=== PATIENT | female | born 1940 | race Caucasian/White ===

== ENCOUNTER → 2017-09-10 10:43 | Outpatient (CLI) | payer MEDICARE, OTHER, SELFPAY ==
--- NOTE | 2017-09-10 10:49 | DI.RAD.S_ITS ---
PROCEDURE: XR WRIST LT MIN 3V INDICATIONS: 76 year-old female with left wrist pain after fall on Friday. TECHNIQUE: 3 views of the wrist were acquired. COMPARISON: None. FINDINGS: Bones: On the oblique view only, there is linear lucency involving the scaphoid waist. There is mild scaphotrapezial joint degeneration. No suspicious bony lesions. Scaphoid view: Not requested. Soft tissues: There is mild radiocarpal compartment chondrocalcinosis. IMPRESSION: 1. Possible incomplete scaphoid waist fracture. Consider further evaluation with short term followup left wrist radiographs, versus noncontrast left wrist MRI. 2. Left wrist CPPD deposition disease. Dictated by: Harpreet Mason M.D. on 09/10/2017 at 11:48 Approved by: Harpreet Mason M.D. on 09/10/2017 at 11:51
--- NOTE | 2017-09-10 10:49 | DI.RAD.S_ITS ---
PROCEDURE: XR LUMBAR SPINE MIN 4V INDICATIONS: 76 year-old female with chronic low back pain with lower extremity radiculopathy. TECHNIQUE: 5 views of the lumbar spine were acquired. COMPARISON: None. FINDINGS: Bones: 5 [id number] vertebrae are present. There is grade one L4-L5 spondylolisthesis, secondary to facet joint degeneration. There is mild L2-L3 retrolisthesis from disc degeneration. There is L2-L3 and L5-S1 degenerative disc narrowing. No vertebral body compression fractures. No suspicious bony lesions. Soft tissues: Overlying bowel gas pattern is normal. No suspicious soft tissue calcifications. Oblique images: No pars defects. IMPRESSION: 1. 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 2. Mild L2-L3 retrolisthesis from disc degeneration. 3. Grade one L4-L5 spondylolisthesis from facet joint degeneration. Dictated by: Harpreet Mason M.D. on 09/10/2017 at 11:51 Approved by: Harpreet Mason M.D. on 09/10/2017 at 11:54
== END ==
PROVIDERS: PCP Internal Medicine; Referring Provider Physician Assistant; Visit Provider Physical Medicine & Rehabilitation
DX: M51.16 Intervertebral disc disorders with radiculopathy, lumbar region (principal); M43.16 Spondylolisthesis, lumbar region; M11.232 Other chondrocalcinosis, left wrist; M25.532 Pain in left wrist; M54.5 Low back pain; G89.29 Other chronic pain; G62.9 Polyneuropathy, unspecified
CPT/HCPCS: 72110; 73110

== ENCOUNTER 2017-09-14 22:11 | Emergency (ER) | payer MEDICARE, OTHER, SELFPAY ==
[2017-09-14 22:29] VITALS: BP 145/91; PULSE 72; RESP 20; TEMP 36.9; O2SAT 98
--- NOTE | 2017-09-14 23:16 | ED_ITS ---
HPI - Back Pain/Injury General Chief Complaint: Back Pain/Injury Stated Complaint: back spasms,low back,unable to get up and down Time Seen by Provider: 09/14/17 22:26 History of Present Illness HPI Narrative: HPI 76-year-old female with a 3-4 months of intermittent bilateral paraspinal lumbar pain presents for evaluation of largely resolved right sided paraspinal pain is radiating towards her groin and right leg and interfering with sleep. Patient reports that she had an exacerbation pain this evening was concerned that she would not be able to sleep presented for further care. Prior to presentation ED her pain largely resolved. Patient denies a history of recent trauma, fevers, chills, unexpected weight loss, decreased perineal sensation when toileting, difficulty urinating or incontinence, morning stiffness, IV drug use, alcoholism, recent invasive medical procedures, presyncope, abdominal pain, or dysuria. Anticoagulation: denies anticoagulation and Plavix. M/S/F/SocHx notable for: please see HPI; remainder reviewed with patient and in chart. ROS: Negative constitutional, eye, cardiovascular, pulmonary, GI, , MSK, skin , neurologic, psychiatric, endocrine unless noted in the HPI. Exam Gen: Pleasant, non-toxic appearing, standing and walking with at most minimal discernible discomfort. HEENT: NC, AT, PEERL, EOMI. Resp: CTAB Card: RRR GI: ND, non-tender to palpation, no palpable midline masses, no palpable midline pulsatility. : No CVA tenderness to percussion bilaterally. MSK: No visible deformities, strength and tone WNL. No lower thoracic or lumbar spinal TTP, step offs or deformities. paraspinal TTP. Skin: Normal color with no visible lesions. Neuro: AO x 3, no facial asymmetry, vision and hearing WNL. Straight leg raise test - negative right, negative left. BLE distal sensation intact, 5/5 dorsiflexion / plantarflexion bilaterally. Gait: mildly antalgic, normal, narrow based gait, able to walk unassisted and stand on heels and toes with full apparent strength. Psych: Mood and affect appropriate. MDM Previous chart, nursing note, and vitals reviewed. A: 76-year-old female with a 3-4 months of intermittent bilateral paraspinal lumbar pain presents for evaluation of largely resolved right sided paraspinal pain is radiating towards her groin and right leg and interfering with sleep. DDx: muscle strain, muscle spasm, sciatica, lumbar radiculopathy, cauda equina syndrome, spinal cord abscess, vertebral osteomyelitis, vertebral diskitis, fracture, seronegative spondyloarthropathy, abdominal aortic aneurysm, abdominal aortic dissection, spontaneous hematoma, malignant spinal cord compression. Evaluation: * Cauda equina - consider unlikely given normal perineal sensation, lack of incontinence or urinary retention. * Infection - abscess, vertebral osteomyelitis, and diskitis are unlikely as the patient is immunocompetent and is with an absence of infectious signs and risk factors on ROS, and a lack of point tenderness. * Fracture - doubt given the absence of spinal TTP and lack of prior trauma * Seronegative spondyloarthropathy - unlikely, no further evaluation currently indicated given the absence of morning stiffness and negative RA, psoriatic arthritis, and autoimmune disease history. * AAA or Dissection - given the absence of tobacco use, the lack of a palpable pulsatile abdominal mass, abdominal pain, presyncope, an abdominal aortic aneurysm as well as dissection is considered unlikely and further investigation is not currently indicated. * Spinal Metastases - given the unremarkable ROS, absence of point spinal tenderness on exam and the lack of discernible neurological deficit, no further testing regarding this etiology is currently indicated. * Renal - history possibly consistent with a recently passed kidney stone, additional evaluation including urinalysis discuss with patient, patient declined further evaluation. No evidence on history or exam of UTI pyelonephritis. * Consider muscle spasm versus lumbar radiculopathy to be the most likely cause of patient's symptoms. Counseled patient regarding natural course of musculoskeletal back pain, given return to care instructions, and recommendation for primary care physician follow up. Discharged with instructions to use OTC medications for pain control. Patient was notified of their elevated blood pressure and recommended to follow up with their primary care physician. As the patient is without evidence of acute end organ dysfunction no further emergent evaluation is indicated as per the 2013 [facility] clinical policy. Impression: Back Pain. (please reference below for remainder of encounter information) Related Data Home Medications Medication Instructions Recorded Confirmed [MAXALT] #0 02/01/06 09/10/17 butalbital 50 mg-acetaminophen 325 1 cap PO ONCE 08/29/17 09/10/17 mg-caffeine 40 mg-codeine 30 mg cap levothyroxine 150 mcg capsule 150 mcg PO DAILY 08/29/17 09/10/17 calcium citrate PO 09/10/17 09/10/17 cholecalciferol (vitamin D3) PO 09/10/17 09/10/17 Allergies Allergy/AdvReac Type Severity Reaction Status Date / Time No Known Allergies Allergy Uncoded 07/09/17 12:02 [facility] Social History Smoking Status: Never smoker Exam Initial Vital Signs Initial Vital Signs: Vital Signs Temperature 98.4 F 09/14/17 22:29 Pulse Rate 72 09/14/17 22:29 Respiratory Rate 20 09/14/17 22:29 Blood Pressure 145/91 H 09/14/17 22:29 Pulse Oximetry 98 09/14/17 22:29 Course Vital Signs - 8 hr 09/14/17 22:29 Temperature 98.4 F Pulse Rate 72 Respiratory Rate 20 Blood Pressure 145/91 H Pulse Oximetry 98 Discharge Plan Departure Prescriptions: No Action calcium citrate PO RF: 0 cholecalciferol (vitamin D3) PO RF: 0 [MAXALT] Qty: 0 RF: 0 levothyroxine 150 mcg capsule 150 mcg PO DAILY RF: 0 [id number] [id number] mg capsule 1 cap PO ONCE RF: 0
== END 2017-09-14 23:25 | disposition home or self-care (01) ==
PROVIDERS: Emergency Provider Emergency Medicine; PCP Internal Medicine
DX: M54.9 Dorsalgia, unspecified (principal)
CPT/HCPCS: 99282

== ENCOUNTER → 2017-09-25 08:48 | Outpatient (CLI) | payer MEDICARE, OTHER, SELFPAY ==
--- NOTE | 2017-09-25 08:51 | DI.MRI.S_ITS ---
PROCEDURE: MR LUMBAR SPINE WO CON INDICATIONS: Multilevel Spinal Stenosis TECHNIQUE: Noncontrast sagittal T1 spin echo and T2 fast echo, sagittal STIR, axial T1 and T2 fast spin echo through the lumbar spine. In cases with scoliosis, additional coronal T2 fast spin echo may be performed. COMPARISON: None. FINDINGS: Image quality: Excellent. Alignment and Curvature: Grade 1 retrolisthesis of L2 on L3 and grade 1 anterolisthesis of L4 on L5 Bone Marrow: Marrow is of normal overall signal. No acute vertebral body compression fractures. There is endplate degenerative spurring, scattered chronic appearing small Schmorl's nodes and endplate degenerative signal changes Spinal Cord: Conus medullaris terminates at the L2 level. Visualized cord demonstrates normal signal and size. Paraspinous Soft Tissues: No paravertebral masses. Posterior disc bulges at T11-T12 and T12-L1 with mild canal narrowing L1-L2: Normal appearance. L2-L3: Posterior annular fissure with broad -based posterior disc bulge and bilateral facet disease. Mild canal narrowing. Mild left and right foraminal stenoses L3-L4: Broad-based posterior disc bulge and facet arthropathy with mild canal narrowing. No definite foraminal stenosis L4-L5: Broad-based posterior disc bulge and bilateral facet arthropathy. Mild canal narrowing. No left and mild right foraminal narrowing L5-S1: Bilateral facet disease. No definite canal stenosis. Severe left and mild right foraminal stenoses IMPRESSION: Grade 1 anterolisthesis of L4-L5. Grade 1 retrolisthesis of L2 on L3. No high-grade canal stenosis. Severe left L5-S1 foraminal narrowing. Dictated by: Chepe Dewey M.D. on 09/25/2017 at 10:05 Approved by: Chepe Dewey M.D. on 09/25/2017 at 10:11
== END ==
PROVIDERS: PCP Internal Medicine; Visit Provider Personal Emergency Response Attendant
DX: M48.061 Spinal stenosis, lumbar region without neurogenic claudication (principal)
CPT/HCPCS: 72148

== ENCOUNTER → 2017-11-07 14:30 | Outpatient (CLI) | payer MEDICARE, OTHER, SELFPAY | PROVIDERS: Family Provider Physical Medicine & Rehabilitation; PCP Internal Medicine; Visit Provider Internal Medicine | DX: M81.0 Age-related osteoporosis without current pathological fracture (principal); Z78.0 Asymptomatic menopausal state; E07.9 Disorder of thyroid, unspecified; Z90.722 Acquired absence of ovaries, bilateral; M54.42 Lumbago with sciatica, left side; M54.41 Lumbago with sciatica, right side; G89.29 Other chronic pain; M43.16 Spondylolisthesis, lumbar region; M47.27 Other spondylosis with radiculopathy, lumbosacral region | CPT/HCPCS: 77080; 99214 ==

== ENCOUNTER 2017-12-18 09:45 | Outpatient (RCR) | payer MEDICARE, OTHER, SELFPAY ==
--- NOTE | 2017-11-04 13:00 | PT.OTN ---
Current Diagnoses Polyneuropathy, unspecified (11/04/17) Other chronic pain (11/04/17) Low back pain (11/04/17) Dorsalgia, unspecified (11/04/17) Physical Therapy Treatment Note PT-OP-A Visit Information Start: 11/04/17 08:37 Freq: Status: Active Protocol: Document 11/04/17 09:45 AMB (Rec: 11/05/17 09:18 AMB [email or web address]) Out-Patient Physical Therapy Visit Information Visit Information Visit Type Initial Evaluation Visit Start Time 09:45 Visit Stop Time 10:30 Total Visit Minutes 45 Visit Number 1 Evaluation Information Evaluation Date 11/04/17 PT-OP-B Current Condition Start: 11/04/17 08:37 Freq: Status: Active Protocol: Document 11/04/17 09:45 AMB (Rec: 11/04/17 10:08 AMB [id number]) Current Condition History of Current Condition Onset Date 3 months ago, insidious onset Current Complaints Back pain that comes and goes History of Current Condition Episodic back pain. Getting up in the morning takes about 30 minutes before she feels better (stiffnes). 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 Fell the first of August and broke left scaphoid, still in cast till mid Nov. 2-3 severe back pain episodes that last a week in the last 3 months. Denies radiating leg pain. Uses the stationary bike at [facility] 3x/week. Does walk in the neighborhood. Prior Treatments and Tests MRI 09/25/17: Grade 1 anterolisthesis L4-5. Grade 1 retrolisthesis L2-L3. Left L5-S1 foraminal narrowing. Treatment Goals Patient/Caregiver Goals Learn how to manage/ prevent back pain Prior Functional Status Baseline Function- ADL's Independent Baseline Function- Mobility Independent Current Functional Impairments (Reported) Functional Limitations- ADL's During a back pain episode: walking, extended sitting, sleeping and lifting are all limited. Personal Factors Other Personal Factors That May Effect Current scaphoid (L) fracture Therapy/Recovery in a cast. PT-OP-C Subjective Start: 11/04/17 08:37 Freq: Status: Active Protocol: Document 11/04/17 09:45 AMB (Rec: 11/05/17 09:18 AMB [email or web address]) Patient Questionnaires Oswestry Low Back Index Oswestry Score 44 Oswestry Impairment 40 to 59% Impaired (Score 40- 59) OP-PT Pain Assessment Location Lower Back Intensity 2 Scale Used Numeric (1 - 10) Comments Pain Comments currently pain is better, but has recently been severe PT-OP-J Posture/Palpation/Skin Start: 11/04/17 08:37 Freq: Status: Active Protocol: Document 11/04/17 09:45 AMB (Rec: 11/05/17 09:40 AMB [email or web address]) Posture Evaluation Comments Posture Comments The patient stands with flat lumbar spine, increased thoracic kyphosis with left shoulder high in standing. Palpation Assessment Location One Palpation Location Low back Palpation Details Stiffness with PAs in prone throughout lumbar spine and sacrum, pt denies pain with palpation, altough she does have tightness along paraspinals. PT-OP-K Range of Motion Start: 11/04/17 08:37 Freq: Status: Active Protocol: Document 11/04/17 09:45 AMB (Rec: 11/05/17 09:40 AMB [email or web address]) Lumbar Spine Range of Motion Lumbar Spine Active Percentage Testing Position standing Flexion 75 Extension 75 Lateral Flexion Left 50 Lateral Flexion Right 75 Comments discomfort with sidebending left on the right side PT-OP-L Special Tests Start: 11/04/17 08:37 Freq: Status: Active Protocol: Document 11/04/17 09:45 AMB (Rec: 11/05/17 09:43 AMB [email or web address]) Special Tests Lumbar Spine Special Tests Straight Leg Raise Test Results negative PT-OP-M Strength Start: 11/04/17 08:37 Freq: Status: Active Protocol: Document 11/04/17 09:45 AMB (Rec: 11/05/17 09:40 AMB [email or web address]) Hip Strength Hip Manual Muscle Testing Right Flexion (L2) 4+ Good+ Extension (S1) 4+ Good+ Abduction 4 Good Left Flexion (L2) 4+ Good+ Extension (S1) 4+ Good+ Abduction 4 Good Knee Strength Knee Manual Muscle Testing Right Flexion (S2) 4+ Good+ Extension (L3) 4+ Good+ Left Flexion (S2) 4 Good Extension (L3) 4 Good PT-OP-Q Treatments Start: 11/04/17 08:37 Freq: Status: Active Protocol: Document 11/04/17 09:45 AMB (Rec: 11/05/17 09:22 AMB [email or web address]) Therapeutic Exercises Supine Exercises 3 Supine Exercise Name single knee to chest Reps/Minutes 30x2 2 Supine Exercise Name SLR with TrA stab Reps/Minutes 2x10 1 Supine Exercise Name trunk rotation Reps/Minutes 2x10 PT-OP-T Assessment and Plan Start: 11/04/17 08:37 Freq: Status: Active Protocol: Document 11/04/17 09:45 AMB (Rec: 11/05/17 09:45 AMB [email or web address]) Physical Therapy Assessment Rehab Potential Rehabilitation Potential Good Evaluation Complexity Number of Personal Factors/Comorbidities 1-2 Number of Body Systems Impaired 4 or More Clinical Presentation at Evaluation Evolving Impairments Impairments Pain Posture ROM Strength Goals Three Impairment Self care Short Term Goal (STG) The patient will be independent with self pain management techniques to decrease the incidence of her back pain episodes to less than 1x/month. STG Duration 4 weeks Two Impairment Strength Short Term Goal (STG) The patient will be independent with a core and hip strengthening home exercise program. STG Duration 4 weeks Long-Term Goal (LTG) The patient will lift 10# from the floor to waist height without an increase in pain and with good body mechanics. LTG Duration 8 weeks One Impairment Activity tolerance Short Term Goal (STG) The patient will move from supine to sitting on the edge of her bed with good body mechanics without an increase in back pain. STG Duration 4 weeks Practice Business Asst Goal (LTG) The patient will move from sit to stand with good body mechanics without an increase in baseline pain. LTG Duration 8 weeks Physical Therapy Plan Frequency and Duration Frequency of Treatment 2x/Week Duration of Treatment 8 weeks Plan of Care Start Date 11/04/17 Plan of Care End Date 12/30/17 Therapeutic Interventions Therapeutic Interventions Aquatic Therapy Balance Training Gait Training Manual Therapy Neuromuscular Re-education Patient/Caregiver Education Therapeutic Activities Therapeutic Exercises Modalities Cold Pack/Ice Massage Electric Stimulation Hot Packs Ultrasound Next Visit Focus/Plan Next Note Type Treatment Note Next Visit Plan Progress HEP, standing core and balance
--- NOTE | 2017-11-04 13:09 | PT.OIE ---
Current Diagnoses Polyneuropathy, unspecified (11/04/17) Other chronic pain (11/04/17) Low back pain (11/04/17) Dorsalgia, unspecified (11/04/17) Provider Visit Care Team Role Provider Type Karthikeyan Yanez MD Family Provider Physician Primary Care Provider Specialty: Internal Medicine Address: [address] [place], [place] [id number] Email: Wesley Hensley DO Attending Provider Physician Specialty: Physiatry Pain Management Address: [address] [place] [address], [id number] Email: Physical Therapy Initial Evaluation PT-OP-A Visit Information Start: 11/04/17 08:37 Freq: Status: Active Protocol: Document 11/04/17 09:45 AMB (Rec: 11/05/17 09:18 AMB [email or web address]) Out-Patient Physical Therapy Visit Information Visit Information Visit Type Initial Evaluation Visit Start Time 09:45 Visit Stop Time 10:30 Total Visit Minutes 45 Visit Number 1 Evaluation Information Evaluation Date 11/04/17 PT-OP-B Current Condition Start: 11/04/17 08:37 Freq: Status: Active Protocol: Document 11/04/17 09:45 AMB (Rec: 11/04/17 10:08 AMB [id number]) Current Condition History of Current Condition Onset Date 3 months ago, insidious onset Current Complaints Back pain that comes and goes History of Current Condition Episodic back pain. Getting up in the morning takes about 30 minutes before she feels better (stiffnes). 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 Fell the first of August and broke left scaphoid, still in cast till mid Nov. 2-3 severe back pain episodes that last a week in the last 3 months. Denies radiating leg pain. Uses the stationary bike at [facility] 3x/week. Does walk in the neighborhood. Prior Treatments and Tests MRI 09/25/17: Grade 1 anterolisthesis L4-5. Grade 1 retrolisthesis L2-L3. Left L5-S1 foraminal narrowing. Treatment Goals Patient/Caregiver Goals Learn how to manage/ prevent back pain Prior Functional Status Baseline Function- ADL's Independent Baseline Function- Mobility Independent Current Functional Impairments (Reported) Functional Limitations- ADL's During a back pain episode: walking, extended sitting, sleeping and lifting are all limited. Personal Factors Other Personal Factors That May Effect Current scaphoid (L) fracture, osteopenia Therapy/Recovery in a cast. PT-OP-C Subjective Start: 11/04/17 08:37 Freq: Status: Active Protocol: Document 11/04/17 09:45 AMB (Rec: 11/05/17 09:18 AMB [email or web address]) Patient Questionnaires Oswestry Low Back Index Oswestry Score 44 Oswestry Impairment 40 to 59% Impaired (Score 40- 59) OP-PT Pain Assessment Location Lower Back Intensity 2 Scale Used Numeric (1 - 10) Comments Pain Comments currently pain is better, but has recently been severe PT-OP-J Posture/Palpation/Skin Start: 11/04/17 08:37 Freq: Status: Active Protocol: Document 11/04/17 09:45 AMB (Rec: 11/05/17 09:40 AMB [email or web address]) Posture Evaluation Comments Posture Comments The patient stands with flat lumbar spine, increased thoracic kyphosis with left shoulder high in standing. Palpation Assessment Location One Palpation Location Low back Palpation Details Stiffness with PAs in prone throughout lumbar spine and sacrum, pt denies pain with palpation, altough she does have tightness along paraspinals. PT-OP-K Range of Motion Start: 11/04/17 08:37 Freq: Status: Active Protocol: Document 11/04/17 09:45 AMB (Rec: 11/05/17 09:40 AMB [email or web address]) Lumbar Spine Range of Motion Lumbar Spine Active Percentage Testing Position standing Flexion 75 Extension 75 Lateral Flexion Left 50 Lateral Flexion Right 75 Comments discomfort with sidebending left on the right side PT-OP-L Special Tests Start: 11/04/17 08:37 Freq: Status: Active Protocol: Document 11/04/17 09:45 AMB (Rec: 11/05/17 09:43 AMB [email or web address]) Special Tests Lumbar Spine Special Tests Straight Leg Raise Test Results negative PT-OP-M Strength Start: 11/04/17 08:37 Freq: Status: Active Protocol: Document 11/04/17 09:45 AMB (Rec: 11/05/17 09:40 AMB [email or web address]) Hip Strength Hip Manual Muscle Testing Right Flexion (L2) 4+ Good+ Extension (S1) 4+ Good+ Abduction 4 Good Left Flexion (L2) 4+ Good+ Extension (S1) 4+ Good+ Abduction 4 Good Knee Strength Knee Manual Muscle Testing Right Flexion (S2) 4+ Good+ Extension (L3) 4+ Good+ Left Flexion (S2) 4 Good Extension (L3) 4 Good PT-OP-Q Treatments Start: 11/04/17 08:37 Freq: Status: Active Protocol: Document 11/04/17 09:45 AMB (Rec: 11/05/17 09:22 AMB [email or web address]) Therapeutic Exercises Supine Exercises 3 Supine Exercise Name single knee to chest Reps/Minutes 30x2 2 Supine Exercise Name SLR with TrA stab Reps/Minutes 2x10 1 Supine Exercise Name trunk rotation Reps/Minutes 2x10 PT-OP-T Assessment and Plan Start: 11/04/17 08:37 Freq: Status: Active Protocol: Document 11/04/17 09:45 AMB (Rec: 11/05/17 09:45 AMB [email or web address]) Physical Therapy Assessment Rehab Potential Rehabilitation Potential Good Evaluation Complexity Number of Personal Factors/Comorbidities 1-2 Number of Body Systems Impaired 4 or More Clinical Presentation at Evaluation Evolving Impairments Impairments Pain Posture ROM Strength Goals Three Impairment Self care Short Term Goal (STG) The patient will be independent with self pain management techniques to decrease the incidence of her back pain episodes to less than 1x/month. STG Duration 4 weeks Two Impairment Strength Short Term Goal (STG) The patient will be independent with a core and hip strengthening home exercise program. STG Duration 4 weeks [facility] Goal (LTG) The patient will lift 10# from the floor to waist height without an increase in pain and with good body mechanics. LTG Duration 8 weeks One Impairment Activity tolerance Short Term Goal (STG) The patient will move from supine to sitting on the edge of her bed with good body mechanics without an increase in back pain. STG Duration 4 weeks [facility] Goal (LTG) The patient will move from sit to stand with good body mechanics without an increase in baseline pain. LTG Duration 8 weeks Physical Therapy Plan Frequency and Duration Frequency of Treatment 2x/Week Duration of Treatment 8 weeks Plan of Care Start Date 11/04/17 Plan of Care End Date 12/30/17 Therapeutic Interventions Therapeutic Interventions Aquatic Therapy Balance Training Gait Training Manual Therapy Neuromuscular Re-education Patient/Caregiver Education Therapeutic Activities Therapeutic Exercises Modalities Cold Pack/Ice Massage Electric Stimulation Hot Packs Ultrasound Next Visit Focus/Plan Next Note Type Treatment Note Next Visit Plan Progress HEP, standing core and balance
--- NOTE | 2017-11-04 13:11 | PT.OPPOC ---
Current Diagnoses Polyneuropathy, unspecified (11/04/17) Other chronic pain (11/04/17) Low back pain (11/04/17) Dorsalgia, unspecified (11/04/17) Provider Visit Care Team Role Provider Type Karthikeyan Yanez MD Family Provider Physician Primary Care Provider Specialty: Internal Medicine Address: [address] [place] [id number] Email: Wesley Hensley DO Attending Provider Physician Specialty: Physiatry Pain Management Address: [address] [place] [address], [phone] Email: Plan Of Care PT-OP-T Assessment and Plan Start: 11/04/17 08:37 Freq: Status: Active Protocol: Document 11/04/17 09:45 AMB (Rec: 11/05/17 09:45 AMB [email or web address]) Physical Therapy Assessment Rehab Potential Rehabilitation Potential Good Evaluation Complexity Number of Personal Factors/Comorbidities 1-2 Number of Body Systems Impaired 4 or More Clinical Presentation at Evaluation Evolving Impairments Impairments Pain Posture ROM Strength Goals Three Impairment Self care Short Term Goal (STG) The patient will be independent with self pain management techniques to decrease the incidence of her back pain episodes to less than 1x/month. STG Duration 4 weeks Two Impairment Strength Short Term Goal (STG) The patient will be independent with a core and hip strengthening home exercise program. STG Duration 4 weeks Transport Specialist Goal (LTG) The patient will lift 10# from the floor to waist height without an increase in pain and with good body mechanics. LTG Duration 8 weeks One Impairment Activity tolerance Short Term Goal (STG) The patient will move from supine to sitting on the edge of her bed with good body mechanics without an increase in back pain. STG Duration 4 weeks [facility] Goal (LTG) The patient will move from sit to stand with good body mechanics without an increase in baseline pain. LTG Duration 8 weeks Physical Therapy Plan Frequency and Duration Frequency of Treatment 2x/Week Duration of Treatment 8 weeks Plan of Care Start Date 11/04/17 Plan of Care End Date 12/30/17 Therapeutic Interventions Therapeutic Interventions Aquatic Therapy Balance Training Gait Training Manual Therapy Neuromuscular Re-education Patient/Caregiver Education Therapeutic Activities Therapeutic Exercises Modalities Cold Pack/Ice Massage Electric Stimulation Hot Packs Ultrasound Next Visit Focus/Plan Next Note Type Treatment Note Next Visit Plan Progress HEP, standing core and balance Plan of Care Dates Plan of Care Start Date 11/04/17 Plan of Care End Date 12/30/17 Please Sign and Return: I have reviewed this Plan of Care and certify that the skilled therapy services above are required to meet the patient?s needs. Physician Signature Date Printed Name and Credentials Clinical Instructor Signature Printed Name and Credentials
--- NOTE | 2017-11-06 14:28 | PT.OTN ---
Current Diagnoses Polyneuropathy, unspecified (11/06/17) Other chronic pain (11/06/17) Low back pain (11/06/17) Dorsalgia, unspecified (11/06/17) Physical Therapy Treatment Note PT-OP-A Visit Information Start: 11/04/17 08:37 Freq: Status: Active Protocol: Document 11/06/17 09:45 AMB (Rec: 11/06/17 10:11 AMB [id number]) Out-Patient Physical Therapy Visit Information Visit Information Visit Type Treatment Note Visit Start Time 09:45 Visit Stop Time 10:30 Total Visit Minutes 45 Visit Number 2 Evaluation Information Evaluation Date 11/04/17 PT-OP-B Current Condition Start: 11/04/17 08:37 Freq: Status: Active Protocol: Document 11/04/17 09:45 AMB (Rec: 11/04/17 10:08 AMB [id number]) Current Condition History of Current Condition Onset Date 3 months ago, insidious onset Current Complaints Back pain that comes and goes History of Current Condition Episodic back pain. Getting up in the morning takes about 30 minutes before she feels better (stiffnes). 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 Fell the first of August and broke left scaphoid, still in cast till mid Nov. 2-3 severe back pain episodes that last a week in the last 3 months. Denies radiating leg pain. Uses the [facility] at [facility] 3x/[facility]. Does walk in the neighborhood. Prior Treatments and Tests MRI 09/25/17: Grade 1 anterolisthesis L4-5. Grade 1 retrolisthesis L2-L3. Left L5-S1 foraminal narrowing. Treatment Goals Patient/Caregiver Goals Learn how to manage/ prevent back pain Prior Functional Status Baseline Function- ADL's Independent Baseline Function- Mobility Independent Current Functional Impairments (Reported) Functional Limitations- ADL's During a back pain episode: walking, extended sitting, sleeping and lifting are all limited. Personal Factors Other Personal Factors That May Effect Current scaphoid (L) fracture Therapy/Recovery in a cast. Osteopenia, neuropathy affecting bilateral feet PT-OP-C Subjective Start: 11/04/17 08:37 Freq: Status: Active Protocol: Document 11/06/17 09:45 AMB (Rec: 11/06/17 10:11 AMB [id number]) OP-PT Subjective Patient Comments Patient Comments Pt reports she is doing fine PT-OP-J Posture/Palpation/Skin Start: 11/04/17 08:37 Freq: Status: Active Protocol: Document 11/04/17 09:45 AMB (Rec: 11/05/17 09:40 AMB [email or web address]) Posture Evaluation Comments Posture Comments The patient stands with flat lumbar spine, increased thoracic kyphosis with left shoulder high in standing. Palpation Assessment Location One Palpation Location Low back Palpation Details Stiffness with PAs in prone throughout lumbar spine and sacrum, pt denies pain with palpation, altough she does have tightness along paraspinals. PT-OP-K Range of Motion Start: 11/04/17 08:37 Freq: Status: Active Protocol: Document 11/04/17 09:45 AMB (Rec: 11/05/17 09:40 AMB [email or web address]) Lumbar Spine Range of Motion Lumbar Spine Active Percentage Testing Position standing Flexion 75 Extension 75 Lateral Flexion Left 50 Lateral Flexion Right 75 Comments discomfort with sidebending left on the right side PT-OP-L Special Tests Start: 11/04/17 08:37 Freq: Status: Active Protocol: Document 11/04/17 09:45 AMB (Rec: 11/05/17 09:43 AMB [email or web address]) Special Tests Lumbar Spine Special Tests Straight Leg Raise Test Results negative PT-OP-M Strength Start: 11/04/17 08:37 Freq: Status: Active Protocol: Document 11/04/17 09:45 AMB (Rec: 11/05/17 09:40 AMB [email or web address]) Hip Strength Hip Manual Muscle Testing Right Flexion (L2) 4+ Good+ Extension (S1) 4+ Good+ Abduction 4 Good Left Flexion (L2) 4+ Good+ Extension (S1) 4+ Good+ Abduction 4 Good Knee Strength Knee Manual Muscle Testing Right Flexion (S2) 4+ Good+ Extension (L3) 4+ Good+ Left Flexion (S2) 4 Good Extension (L3) 4 Good PT-OP-Q Treatments Start: 11/04/17 08:37 Freq: Status: Active Protocol: Document 11/06/17 09:45 AMB (Rec: 11/06/17 14:27 AMB [email or web address]) Cardio Equipment Bicycle (Upright) Duration (Minutes) 5 Resistance 4 Gym Equipment Shuttle Recovery Bilateral Squats Resistance 75# Reps/Time 2x15 Shuttle Balance 1 Details RED Comments WBOS working on engaging core with dynamic movement Therapeutic Exercises Supine Exercises 4 Supine Exercise Name air bicycle Reps/Minutes 2x10 3 Supine Exercise Name single knee to chest Reps/Minutes 30x2 2 Supine Exercise Name SLR with TrA stab Reps/Minutes 2x10 1 Supine Exercise Name trunk rotation Reps/Minutes 2x10 Sitting Exercises 1 Sitting Exercise Name pelvic tilt on 65cm ball Reps/Minutes 2x10 with focus on TrA PT-OP-T Assessment and Plan Start: 11/04/17 08:37 Freq: Status: Active Protocol: Document 11/06/17 09:45 AMB (Rec: 11/06/17 14:27 AMB [email or web address]) Physical Therapy Assessment Assessment Summary Assessment The patient tolerated exercises well. Will likely need to progress to continue to challenge patient, although will need to be careful of back pain episodes. Physical Therapy Plan Next Visit Focus/Plan Next Note Type Treatment Note Next Visit Plan Progress core stabilization
--- NOTE | 2017-11-12 11:32 | PT.OTN ---
Current Diagnoses Polyneuropathy, unspecified (11/11/17) Other chronic pain (11/11/17) Low back pain (11/11/17) Dorsalgia, unspecified (11/11/17) Physical Therapy Treatment Note PT-OP-A Visit Information Start: 11/04/17 08:37 Freq: Status: Active Protocol: Document 11/11/17 09:45 AMB (Rec: 11/12/17 07:30 AMB [id number]) Out-Patient Physical Therapy Visit Information Visit Information Visit Type Treatment Note Visit Start Time 09:45 Visit Stop Time 10:30 Total Visit Minutes 45 Visit Number 3 Evaluation Information Evaluation Date 11/04/17 PT-OP-B Current Condition Start: 11/04/17 08:37 Freq: Status: Active Protocol: Document 11/04/17 09:45 AMB (Rec: 11/04/17 10:08 AMB [id number]) Current Condition History of Current Condition Onset Date 3 months ago, insidious onset Current Complaints Back pain that comes and goes History of Current Condition Episodic back pain. Getting up in the morning takes about 30 minutes before she feels better (stiffnes). 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 Fell the first of August and broke left scaphoid, still in cast till mid Nov. 2-3 severe back pain episodes that last a week in the last 3 months. Denies radiating leg pain. Uses the stationary bike at [facility] 3x/week. Does walk in the neighborhood. Prior Treatments and Tests MRI 09/25/17: Grade 1 anterolisthesis L4-5. Grade 1 retrolisthesis L2-L3. Left L5-S1 foraminal narrowing. Treatment Goals Patient/Caregiver Goals Learn how to manage/ prevent back pain Prior Functional Status Baseline Function- ADL's Independent Baseline Function- Mobility Independent Current Functional Impairments (Reported) Functional Limitations- ADL's During a back pain episode: walking, extended sitting, sleeping and lifting are all limited. Personal Factors Other Personal Factors That May Effect Current scaphoid (L) fracture Therapy/Recovery in a cast. Osteopenia, neuropathy affecting bilateral feet PT-OP-C Subjective Start: 11/04/17 08:37 Freq: Status: Active Protocol: Document 11/11/17 09:45 AMB (Rec: 11/12/17 07:30 AMB [id number]) OP-PT Subjective Patient Comments Patient Comments Pt reports 2/10 right sided back pain today. Did have back pain with extended walking a few days ago. PT-OP-J Posture/Palpation/Skin Start: 11/04/17 08:37 Freq: Status: Active Protocol: Document 11/04/17 09:45 AMB (Rec: 11/05/17 09:40 AMB [email or web address]) Posture Evaluation Comments Posture Comments The patient stands with flat lumbar spine, increased thoracic kyphosis with left shoulder high in standing. Palpation Assessment Location One Palpation Location Low back Palpation Details Stiffness with PAs in prone throughout lumbar spine and sacrum, pt denies pain with palpation, altough she does have tightness along paraspinals. PT-OP-K Range of Motion Start: 11/04/17 08:37 Freq: Status: Active Protocol: Document 11/04/17 09:45 AMB (Rec: 11/05/17 09:40 AMB [email or web address]) Lumbar Spine Range of Motion Lumbar Spine Active Percentage Testing Position standing Flexion 75 Extension 75 Lateral Flexion Left 50 Lateral Flexion Right 75 Comments discomfort with sidebending left on the right side PT-OP-L Special Tests Start: 11/04/17 08:37 Freq: Status: Active Protocol: Document 11/04/17 09:45 AMB (Rec: 11/05/17 09:43 AMB [email or web address]) Special Tests Lumbar Spine Special Tests Straight Leg Raise Test Results negative PT-OP-M Strength Start: 11/04/17 08:37 Freq: Status: Active Protocol: Document 11/04/17 09:45 AMB (Rec: 11/05/17 09:40 AMB [email or web address]) Hip Strength Hip Manual Muscle Testing Right Flexion (L2) 4+ Good+ Extension (S1) 4+ Good+ Abduction 4 Good Left Flexion (L2) 4+ Good+ Extension (S1) 4+ Good+ Abduction 4 Good Knee Strength Knee Manual Muscle Testing Right Flexion (S2) 4+ Good+ Extension (L3) 4+ Good+ Left Flexion (S2) 4 Good Extension (L3) 4 Good PT-OP-Q Treatments Start: 11/04/17 08:37 Freq: Status: Active Protocol: Document 11/11/17 09:45 AMB (Rec: 11/12/17 07:30 AMB [id number]) Cardio Equipment Bicycle (Upright) Duration (Minutes) 5 Resistance 4 Therapeutic Exercises Supine Exercises 4 Supine Exercise Name air bicycle Reps/Minutes 2x10 3 Supine Exercise Name single knee to chest Reps/Minutes 30x2 2 Supine Exercise Name SLR with TrA stab Reps/Minutes 2x10 1 Supine Exercise Name trunk rotation Reps/Minutes 2x10 Prone Exercises 1 Prone Exercise Name hip extension Reps/Minutes 10 Comments vc to avoid lumbar extension Therapeutic Activity Therapeutic Activity 1 Name squatting vs bending Comments avoiding forward bending, squatting without knee pain. PT-OP-T Assessment and Plan Start: 11/04/17 08:37 Freq: Status: Active Protocol: Document 11/11/17 09:45 AMB (Rec: 11/12/17 11:32 AMB [email or web address]) Physical Therapy Assessment Assessment Summary Assessment Pt continues to need to work on body mechanics. Knee discomfort continues to affect this in regards to her back. Physical Therapy Plan Next Visit Focus/Plan Next Note Type Treatment Note Next Visit Plan Progress core/hip stabilization
--- NOTE | 2017-11-13 15:47 | PT.OTN ---
Current Diagnoses Polyneuropathy, unspecified (11/13/17) Other chronic pain (11/13/17) Low back pain (11/13/17) Dorsalgia, unspecified (11/13/17) Physical Therapy Treatment Note PT-OP-A Visit Information Start: 11/04/17 08:37 Freq: Status: Active Protocol: Document 11/13/17 09:45 AMB (Rec: 11/13/17 15:46 AMB [email or web address]) Out-Patient Physical Therapy Visit Information Visit Information Visit Type Treatment Note Visit Start Time 09:45 Visit Stop Time 10:30 Total Visit Minutes 45 Visit Number 4 Evaluation Information Evaluation Date 11/04/17 PT-OP-B Current Condition Start: 11/04/17 08:37 Freq: Status: Active Protocol: Document 11/04/17 09:45 AMB (Rec: 11/04/17 10:08 AMB [id number]) Current Condition History of Current Condition Onset Date 3 months ago, insidious onset Current Complaints Back pain that comes and goes History of Current Condition Episodic back pain. Getting up in the morning takes about 30 minutes before she feels better (stiffnes). 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 Fell the first of August and broke left scaphoid, still in cast till mid Nov. 2-3 severe back pain episodes that last a week in the last 3 months. Denies radiating leg pain. Uses the [facility] bike at [facility] 3x/week. Does walk in the neighborhood. Prior Treatments and Tests MRI 09/25/17: Grade 1 anterolisthesis L4-5. Grade 1 retrolisthesis L2-L3. Left L5-S1 foraminal narrowing. Treatment Goals Patient/Caregiver Goals Learn how to manage/ prevent back pain Prior Functional Status Baseline Function- ADL's Independent Baseline Function- Mobility Independent Current Functional Impairments (Reported) Functional Limitations- ADL's During a back pain episode: walking, extended sitting, sleeping and lifting are all limited. Personal Factors Other Personal Factors That May Effect Current scaphoid (L) fracture Therapy/Recovery in a cast. Osteopenia, neuropathy affecting bilateral feet PT-OP-C Subjective Start: 11/04/17 08:37 Freq: Status: Active Protocol: Document 11/13/17 09:45 AMB (Rec: 11/13/17 15:46 AMB [email or web address]) OP-PT Subjective Patient Comments Patient Comments Pt not describing significant back pain today, but concerned about what to do if a back pain flares up again. PT-OP-J Posture/Palpation/Skin Start: 11/04/17 08:37 Freq: Status: Active Protocol: Document 11/04/17 09:45 AMB (Rec: 11/05/17 09:40 AMB [email or web address]) Posture Evaluation Comments Posture Comments The patient stands with flat lumbar spine, increased thoracic kyphosis with left shoulder high in standing. Palpation Assessment Location One Palpation Location Low back Palpation Details Stiffness with PAs in prone throughout lumbar spine and sacrum, pt denies pain with palpation, altough she does have tightness along paraspinals. PT-OP-K Range of Motion Start: 11/04/17 08:37 Freq: Status: Active Protocol: Document 11/04/17 09:45 AMB (Rec: 11/05/17 09:40 AMB [email or web address]) Lumbar Spine Range of Motion Lumbar Spine Active Percentage Testing Position standing Flexion 75 Extension 75 Lateral Flexion Left 50 Lateral Flexion Right 75 Comments discomfort with sidebending left on the right side PT-OP-L Special Tests Start: 11/04/17 08:37 Freq: Status: Active Protocol: Document 11/04/17 09:45 AMB (Rec: 11/05/17 09:43 AMB [email or web address]) Special Tests Lumbar Spine Special Tests Straight Leg Raise Test Results negative PT-OP-M Strength Start: 11/04/17 08:37 Freq: Status: Active Protocol: Document 11/04/17 09:45 AMB (Rec: 11/05/17 09:40 AMB [email or web address]) Hip Strength Hip Manual Muscle Testing Right Flexion (L2) 4+ Good+ Extension (S1) 4+ Good+ Abduction 4 Good Left Flexion (L2) 4+ Good+ Extension (S1) 4+ Good+ Abduction 4 Good Knee Strength Knee Manual Muscle Testing Right Flexion (S2) 4+ Good+ Extension (L3) 4+ Good+ Left Flexion (S2) 4 Good Extension (L3) 4 Good PT-OP-Q Treatments Start: 11/04/17 08:37 Freq: Status: Active Protocol: Document 11/13/17 09:45 AMB (Rec: 11/13/17 15:46 AMB [email or web address]) Cardio Equipment Recumbent Bicycle Duration (Minutes) 7 Resistance 5 Therapeutic Exercises Supine Exercises 4 Supine Exercise Name air bicycle Reps/Minutes 2x10 3 Supine Exercise Name single knee to chest Reps/Minutes 30x2 2 Supine Exercise Name SLR with TrA stab Reps/Minutes 2x10 1 Supine Exercise Name trunk rotation Reps/Minutes 2x10 Sitting Exercises 2 Sitting Exercise Name marching, LAQ with TrA stab Reps/Minutes 30x2 1 Sitting Exercise Name pelvic tilt on 65cm ball Reps/Minutes 2x10 with focus on TrA PT-OP-T Assessment and Plan Start: 11/04/17 08:37 Freq: Status: Active Protocol: Document 11/13/17 09:45 AMB (Rec: 11/13/17 15:46 AMB [email or web address]) Physical Therapy Assessment Assessment Summary Assessment Pt with improved core stability today. Physical Therapy Plan Frequency and Duration Frequency of Treatment 2x/Week Duration of Treatment 8 weeks Plan of Care Start Date 11/04/17 Plan of Care End Date 12/30/17 Next Visit Focus/Plan Next Note Type Treatment Note Next Visit Plan Follow up on what to do for back flare up
--- NOTE | 2017-11-18 13:08 | PT.OTN ---
Current Diagnoses Polyneuropathy, unspecified (11/18/17) Other chronic pain (11/18/17) Low back pain (11/18/17) Dorsalgia, unspecified (11/18/17) Physical Therapy Treatment Note PT-OP-A Visit Information Start: 11/04/17 08:37 Freq: Status: Active Protocol: Document 11/18/17 09:45 AMB (Rec: 11/18/17 13:07 AMB [email or web address]) Out-Patient Physical Therapy Visit Information Visit Information Visit Type Treatment Note Visit Start Time 09:45 Visit Stop Time 10:30 Total Visit Minutes 45 Visit Number 5 Evaluation Information Evaluation Date 11/04/17 PT-OP-B Current Condition Start: 11/04/17 08:37 Freq: Status: Active Protocol: Document 11/04/17 09:45 AMB (Rec: 11/04/17 10:08 AMB [id number]) Current Condition History of Current Condition Onset Date 3 months ago, insidious onset Current Complaints Back pain that comes and goes History of Current Condition Episodic back pain. Getting up in the morning takes about 30 minutes before she feels better (stiffnes). 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 Fell the first of August and broke left scaphoid, still in cast till mid Nov. 2-3 severe back pain episodes that last a week in the last 3 months. Denies radiating leg pain. Uses the stationary bike at [facility] 3x/week. Does walk in the neighborhood. Prior Treatments and Tests MRI 09/25/17: Grade 1 anterolisthesis L4-5. Grade 1 retrolisthesis L2-L3. Left L5-S1 foraminal narrowing. Treatment Goals Patient/Caregiver Goals Learn how to manage/ prevent back pain Prior Functional Status Baseline Function- ADL's Independent Baseline Function- Mobility Independent Current Functional Impairments (Reported) Functional Limitations- ADL's During a back pain episode: walking, extended sitting, sleeping and lifting are all limited. Personal Factors Other Personal Factors That May Effect Current scaphoid (L) fracture Therapy/Recovery in a cast. Osteopenia, neuropathy affecting bilateral feet PT-OP-C Subjective Start: 11/04/17 08:37 Freq: Status: Active Protocol: Document 11/18/17 09:45 AMB (Rec: 11/18/17 13:07 AMB [email or web address]) OP-PT Subjective Patient Comments Patient Comments Pt notes 2/10 back pain worse with single knee to chest. PT-OP-J Posture/Palpation/Skin Start: 11/04/17 08:37 Freq: Status: Active Protocol: Document 11/04/17 09:45 AMB (Rec: 11/05/17 09:40 AMB [email or web address]) Posture Evaluation Comments Posture Comments The patient stands with flat lumbar spine, increased thoracic kyphosis with left shoulder high in standing. Palpation Assessment Location One Palpation Location Low back Palpation Details Stiffness with PAs in prone throughout lumbar spine and sacrum, pt denies pain with palpation, altough she does have tightness along paraspinals. PT-OP-K Range of Motion Start: 11/04/17 08:37 Freq: Status: Active Protocol: Document 11/04/17 09:45 AMB (Rec: 11/05/17 09:40 AMB [email or web address]) Lumbar Spine Range of Motion Lumbar Spine Active Percentage Testing Position standing Flexion 75 Extension 75 Lateral Flexion Left 50 Lateral Flexion Right 75 Comments discomfort with sidebending left on the right side PT-OP-L Special Tests Start: 11/04/17 08:37 Freq: Status: Active Protocol: Document 11/04/17 09:45 AMB (Rec: 11/05/17 09:43 AMB [email or web address]) Special Tests Lumbar Spine Special Tests Straight Leg Raise Test Results negative PT-OP-M Strength Start: 11/04/17 08:37 Freq: Status: Active Protocol: Document 11/04/17 09:45 AMB (Rec: 11/05/17 09:40 AMB [email or web address]) Hip Strength Hip Manual Muscle Testing Right Flexion (L2) 4+ Good+ Extension (S1) 4+ Good+ Abduction 4 Good Left Flexion (L2) 4+ Good+ Extension (S1) 4+ Good+ Abduction 4 Good Knee Strength Knee Manual Muscle Testing Right Flexion (S2) 4+ Good+ Extension (L3) 4+ Good+ Left Flexion (S2) 4 Good Extension (L3) 4 Good PT-OP-Q Treatments Start: 11/04/17 08:37 Freq: Status: Active Protocol: Document 11/18/17 09:45 AMB (Rec: 11/18/17 13:07 AMB [email or web address]) Therapeutic Exercises Supine Exercises 4 Supine Exercise Name air bicycle Reps/Minutes 2x10 1 Supine Exercise Name trunk rotation Reps/Minutes 2x10 Prone Exercises 3 Prone Exercise Name prone press up Reps/Minutes 2x10 Comments forearms only 2 Prone Exercise Name ashwin pose Reps/Minutes 30x3 Comments with and without SB 1 Prone Exercise Name hip extension Reps/Minutes 10 Comments vc to avoid lumbar extension Sidelying Exercises 2 Sidelying Exercise Name clamshell Reps/Minutes 10x2 1 Sidelying Exercise Name hip abd Reps/Minutes 10x2 Therapeutic Activity Therapeutic Activity 1 Name squatting vs bending Comments avoiding forward bending, squatting without knee pain. PT-OP-T Assessment and Plan Start: 11/04/17 08:37 Freq: Status: Active Protocol: Document 11/18/17 09:45 AMB (Rec: 11/18/17 13:07 AMB [email or web address]) Physical Therapy Assessment Goals Three Impairment Self care Short Term Goal (STG) The patient will be independent with self pain management techniques to decrease the incidence of her back pain episodes to less than 1x/month. STG Duration 4 weeks Two Impairment Strength Short Term Goal (STG) The patient will be independent with a core and hip strengthening home exercise program. STG Duration 4 weeks Cardiovascular Surgical Tech Goal (LTG) The patient will lift 10# from the floor to waist height without an increase in pain and with good body mechanics. LTG Duration 8 weeks One Impairment Activity tolerance Short Term Goal (STG) The patient will move from supine to sitting on the edge of her bed with good body mechanics without an increase in back pain. STG Duration 4 weeks Long-Term Goal (LTG) The patient will move from sit to stand with good body mechanics without an increase in baseline pain. LTG Duration 8 weeks Assessment Summary Assessment Pt is going to be seeing hand therapist next week. Physical Therapy Plan Next Visit Focus/Plan Next Note Type Treatment Note Next Visit Plan Can try e-stim if pt is in pain flare.
--- NOTE | 2017-11-25 15:51 | PT.OTN ---
Current Diagnoses Polyneuropathy, unspecified (11/25/17) Other chronic pain (11/25/17) Low back pain (11/25/17) Dorsalgia, unspecified (11/25/17) Physical Therapy Treatment Note PT-OP-A Visit Information Start: 11/04/17 08:37 Freq: Status: Active Protocol: Document 11/25/17 10:30 AMB (Rec: 11/25/17 15:46 AMB [email or web address]) Out-Patient Physical Therapy Visit Information Visit Information Visit Type Treatment Note Visit Start Time 09:45 Visit Stop Time 10:30 Total Visit Minutes 45 Visit Number 6 Evaluation Information Evaluation Date 11/04/17 PT-OP-B Current Condition Start: 11/04/17 08:37 Freq: Status: Active Protocol: Document 11/04/17 09:45 AMB (Rec: 11/04/17 10:08 AMB [id number]) Current Condition History of Current Condition Onset Date 3 months ago, insidious onset Current Complaints Back pain that comes and goes History of Current Condition Episodic back pain. Getting up in the morning takes about 30 minutes before she feels better (stiffnes). 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 Fell the first of August and broke left scaphoid, still in cast till mid Nov. 2-3 severe back pain episodes that last a week in the last 3 months. Denies radiating leg pain. Uses the stationary bike at [facility] 3x/week. Does walk in the neighborhood. Prior Treatments and Tests MRI 09/25/17: Grade 1 anterolisthesis L4-5. Grade 1 retrolisthesis L2-L3. Left L5-S1 foraminal narrowing. Treatment Goals Patient/Caregiver Goals Learn how to manage/ prevent back pain Prior Functional Status Baseline Function- ADL's Independent Baseline Function- Mobility Independent Current Functional Impairments (Reported) Functional Limitations- ADL's During a back pain episode: walking, extended sitting, sleeping and lifting are all limited. Personal Factors Other Personal Factors That May Effect Current scaphoid (L) fracture Therapy/Recovery in a cast. Osteopenia, neuropathy affecting bilateral feet PT-OP-C Subjective Start: 11/04/17 08:37 Freq: Status: Active Protocol: Document 11/25/17 10:30 AMB (Rec: 11/25/17 15:46 AMB [email or web address]) OP-PT Subjective Patient Comments Patient Comments Difficult time sleeping last night, but back not necessarily hurting more today . Knee pain and neuropathy more of an issue. PT-OP-J Posture/Palpation/Skin Start: 11/04/17 08:37 Freq: Status: Active Protocol: Document 11/04/17 09:45 AMB (Rec: 11/05/17 09:40 AMB [email or web address]) Posture Evaluation Comments Posture Comments The patient stands with flat lumbar spine, increased thoracic kyphosis with left shoulder high in standing. Palpation Assessment Location One Palpation Location Low back Palpation Details Stiffness with PAs in prone throughout lumbar spine and sacrum, pt denies pain with palpation, altough she does have tightness along paraspinals. PT-OP-K Range of Motion Start: 11/04/17 08:37 Freq: Status: Active Protocol: Document 11/04/17 09:45 AMB (Rec: 11/05/17 09:40 AMB [email or web address]) Lumbar Spine Range of Motion Lumbar Spine Active Percentage Testing Position standing Flexion 75 Extension 75 Lateral Flexion Left 50 Lateral Flexion Right 75 Comments discomfort with sidebending left on the right side PT-OP-L Special Tests Start: 11/04/17 08:37 Freq: Status: Active Protocol: Document 11/04/17 09:45 AMB (Rec: 11/05/17 09:43 AMB [email or web address]) Special Tests Lumbar Spine Special Tests Straight Leg Raise Test Results negative PT-OP-M Strength Start: 11/04/17 08:37 Freq: Status: Active Protocol: Document 11/04/17 09:45 AMB (Rec: 11/05/17 09:40 AMB [email or web address]) Hip Strength Hip Manual Muscle Testing Right Flexion (L2) 4+ Good+ Extension (S1) 4+ Good+ Abduction 4 Good Left Flexion (L2) 4+ Good+ Extension (S1) 4+ Good+ Abduction 4 Good Knee Strength Knee Manual Muscle Testing Right Flexion (S2) 4+ Good+ Extension (L3) 4+ Good+ Left Flexion (S2) 4 Good Extension (L3) 4 Good PT-OP-Q Treatments Start: 11/04/17 08:37 Freq: Status: Active Protocol: Document 11/25/17 10:30 AMB (Rec: 11/25/17 15:46 AMB [email or web address]) Cardio Equipment Recumbent Elliptical ([place]) Duration (Minutes) 7 Resistance 5 Therapeutic Activity Therapeutic Activity 2 Name sleep postures Comments using pillow, towel roll props 1 Name squatting vs bending Reps/Minutes 20min Comments avoiding forward bending, squatting without knee pain. PT-OP-T Assessment and Plan Start: 11/04/17 08:37 Freq: Status: Active Protocol: Document 11/25/17 10:30 AMB (Rec: 11/25/17 15:46 AMB [email or web address]) Physical Therapy Assessment Assessment Summary Assessment Pt continues to have knee discomfort with squatting, would like to return to a walking program. Discussed yardwork, but pt is not expecting to get back to that. Physical Therapy Plan Next Visit Focus/Plan Next Note Type Treatment Note Next Visit Plan Follow up on body mechanics, sleeping postures
--- NOTE | 2017-11-27 14:08 | PT.OTN ---
Current Diagnoses Polyneuropathy, unspecified (11/27/17) Other chronic pain (11/27/17) Low back pain (11/27/17) Dorsalgia, unspecified (11/27/17) Physical Therapy Treatment Note PT-OP-A Visit Information Start: 11/04/17 08:37 Freq: Status: Active Protocol: Document 11/27/17 10:30 AMB (Rec: 11/27/17 14:08 AMB [email or web address]) Out-Patient Physical Therapy Visit Information Visit Information Visit Type Treatment Note Visit Note G code 10/07 Visit Start Time 10:30 Visit Stop Time 11:15 Total Visit Minutes 45 Visit Number 7 Evaluation Information Evaluation Date 11/04/17 PT-OP-B Current Condition Start: 11/04/17 08:37 Freq: Status: Active Protocol: Document 11/04/17 09:45 AMB (Rec: 11/04/17 10:08 AMB [id number]) Current Condition History of Current Condition Onset Date 3 months ago, insidious onset Current Complaints Back pain that comes and goes History of Current Condition Episodic back pain. Getting up in the morning takes about 30 minutes before she feels better (stiffnes). 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 Fell the first of August and broke left scaphoid, still in cast till mid Nov. 2-3 severe back pain episodes that last a week in the last 3 months. Denies radiating leg pain. Uses the stationary bike at [facility] 3x/week. Does walk in the neighborhood. Prior Treatments and Tests MRI 09/25/17: Grade 1 anterolisthesis L4-5. Grade 1 retrolisthesis L2-L3. Left L5-S1 foraminal narrowing. Treatment Goals Patient/Caregiver Goals Learn how to manage/ prevent back pain Prior Functional Status Baseline Function- ADL's Independent Baseline Function- Mobility Independent Current Functional Impairments (Reported) Functional Limitations- ADL's During a back pain episode: walking, extended sitting, sleeping and lifting are all limited. Personal Factors Other Personal Factors That May Effect Current scaphoid (L) fracture Therapy/Recovery in a cast. Osteopenia, neuropathy affecting bilateral feet PT-OP-C Subjective Start: 11/04/17 08:37 Freq: Status: Active Protocol: Document 11/27/17 10:30 AMB (Rec: 11/27/17 14:08 AMB [email or web address]) OP-PT Subjective Patient Comments Patient Comments Pt wondering if her R hip is impacting her pain, as she continues to have pain with single knee to chest. PT-OP-J Posture/Palpation/Skin Start: 11/04/17 08:37 Freq: Status: Active Protocol: Document 11/04/17 09:45 AMB (Rec: 11/05/17 09:40 AMB [email or web address]) Posture Evaluation Comments Posture Comments The patient stands with flat lumbar spine, increased thoracic kyphosis with left shoulder high in standing. Palpation Assessment Location One Palpation Location Low back Palpation Details Stiffness with PAs in prone throughout lumbar spine and sacrum, pt denies pain with palpation, altough she does have tightness along paraspinals. PT-OP-K Range of Motion Start: 11/04/17 08:37 Freq: Status: Active Protocol: Document 11/04/17 09:45 AMB (Rec: 11/05/17 09:40 AMB [email or web address]) Lumbar Spine Range of Motion Lumbar Spine Active Percentage Testing Position standing Flexion 75 Extension 75 Lateral Flexion Left 50 Lateral Flexion Right 75 Comments discomfort with sidebending left on the right side PT-OP-L Special Tests Start: 11/04/17 08:37 Freq: Status: Active Protocol: Document 11/04/17 09:45 AMB (Rec: 11/05/17 09:43 AMB [email or web address]) Special Tests Lumbar Spine Special Tests Straight Leg Raise Test Results negative PT-OP-M Strength Start: 11/04/17 08:37 Freq: Status: Active Protocol: Document 11/04/17 09:45 AMB (Rec: 11/05/17 09:40 AMB [email or web address]) Hip Strength Hip Manual Muscle Testing Right Flexion (L2) 4+ Good+ Extension (S1) 4+ Good+ Abduction 4 Good Left Flexion (L2) 4+ Good+ Extension (S1) 4+ Good+ Abduction 4 Good Knee Strength Knee Manual Muscle Testing Right Flexion (S2) 4+ Good+ Extension (L3) 4+ Good+ Left Flexion (S2) 4 Good Extension (L3) 4 Good PT-OP-Q Treatments Start: 11/04/17 08:37 Freq: Status: Active Protocol: Document 11/27/17 10:30 AMB (Rec: 11/27/17 14:08 AMB [email or web address]) Cardio Equipment Recumbent Elliptical (Biodex) Duration (Minutes) 7 Resistance 5 Therapeutic Exercises Supine Exercises 4 Supine Exercise Name air bicycle Reps/Minutes 2x10 Prone Exercises 1 Prone Exercise Name hip extension Reps/Minutes 10 Comments vc to avoid lumbar extension Sidelying Exercises 2 Sidelying Exercise Name clamshell Reps/Minutes 10x2 1 Sidelying Exercise Name hip abd Reps/Minutes 10x2 Sitting Exercises 2 Sitting Exercise Name marching, LAQ with TrA stab Reps/Minutes 30x2 PT-OP-T Assessment and Plan Start: 11/04/17 08:37 Freq: Status: Active Protocol: Document 11/27/17 10:30 AMB (Rec: 11/27/17 14:08 AMB [email or web address]) Physical Therapy Assessment Assessment Summary Assessment Pt to stop single knee to chest for now, since it is reproducing her pain. Otherwise pt is doing quite well, so we will go down to 1x /week. Physical Therapy Plan Frequency and Duration Frequency of Treatment 2x/Week Duration of Treatment 8 weeks Plan of Care Start Date 11/04/17 Plan of Care End Date 12/30/17 Next Visit Focus/Plan Next Note Type Treatment Note Next Visit Plan Progress core stabilization as tolerated.
--- NOTE | 2017-12-03 14:16 | PT.OTN ---
Current Diagnoses Polyneuropathy, unspecified (12/03/17) Other chronic pain (12/03/17) Low back pain (12/03/17) Dorsalgia, unspecified (12/03/17) Physical Therapy Treatment Note PT-OP-A Visit Information Start: 11/04/17 08:37 Freq: Status: Active Protocol: Document 12/03/17 10:30 AMB (Rec: 12/03/17 10:41 AMB [id number]) Out-Patient Physical Therapy Visit Information Visit Information Visit Type Treatment Note Visit Note G code 11/07 Visit Start Time 10:30 Visit Stop Time 11:15 Total Visit Minutes 45 Visit Number 8 Evaluation Information Evaluation Date 11/04/17 PT-OP-B Current Condition Start: 11/04/17 08:37 Freq: Status: Active Protocol: Document 11/04/17 09:45 AMB (Rec: 11/04/17 10:08 AMB [id number]) Current Condition History of Current Condition Onset Date 3 months ago, insidious onset Current Complaints Back pain that comes and goes History of Current Condition Episodic back pain. Getting up in the morning takes about 30 minutes before she feels better (stiffnes). 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 Fell the first of August and broke left scaphoid, still in cast till mid Nov. 2-3 severe back pain episodes that last a week in the last 3 months. Denies radiating leg pain. Uses the stationary bike at [facility] 3x/week. Does walk in the neighborhood. Prior Treatments and Tests MRI 09/25/17: Grade 1 anterolisthesis L4-5. Grade 1 retrolisthesis L2-L3. Left L5-S1 foraminal narrowing. Treatment Goals Patient/Caregiver Goals Learn how to manage/ prevent back pain Prior Functional Status Baseline Function- ADL's Independent Baseline Function- Mobility Independent Current Functional Impairments (Reported) Functional Limitations- ADL's During a back pain episode: walking, extended sitting, sleeping and lifting are all limited. Personal Factors Other Personal Factors That May Effect Current scaphoid (L) fracture Therapy/Recovery in a cast. Osteopenia, neuropathy affecting bilateral feet PT-OP-C Subjective Start: 11/04/17 08:37 Freq: Status: Active Protocol: Document 12/03/17 10:30 AMB (Rec: 12/03/17 10:41 AMB [id number]) OP-PT Subjective Patient Comments Patient Comments Pt feels like her back is getting slightly better. PT-OP-J Posture/Palpation/Skin Start: 11/04/17 08:37 Freq: Status: Active Protocol: Document 11/04/17 09:45 AMB (Rec: 11/05/17 09:40 AMB [email or web address]) Posture Evaluation Comments Posture Comments The patient stands with flat lumbar spine, increased thoracic kyphosis with left shoulder high in standing. Palpation Assessment Location One Palpation Location Low back Palpation Details Stiffness with PAs in prone throughout lumbar spine and sacrum, pt denies pain with palpation, altough she does have tightness along paraspinals. PT-OP-K Range of Motion Start: 11/04/17 08:37 Freq: Status: Active Protocol: Document 11/04/17 09:45 AMB (Rec: 11/05/17 09:40 AMB [email or web address]) Lumbar Spine Range of Motion Lumbar Spine Active Percentage Testing Position standing Flexion 75 Extension 75 Lateral Flexion Left 50 Lateral Flexion Right 75 Comments discomfort with sidebending left on the right side PT-OP-L Special Tests Start: 11/04/17 08:37 Freq: Status: Active Protocol: Document 11/04/17 09:45 AMB (Rec: 11/05/17 09:43 AMB [email or web address]) Special Tests Lumbar Spine Special Tests Straight Leg Raise Test Results negative PT-OP-M Strength Start: 11/04/17 08:37 Freq: Status: Active Protocol: Document 11/04/17 09:45 AMB (Rec: 11/05/17 09:40 AMB [email or web address]) Hip Strength Hip Manual Muscle Testing Right Flexion (L2) 4+ Good+ Extension (S1) 4+ Good+ Abduction 4 Good Left Flexion (L2) 4+ Good+ Extension (S1) 4+ Good+ Abduction 4 Good Knee Strength Knee Manual Muscle Testing Right Flexion (S2) 4+ Good+ Extension (L3) 4+ Good+ Left Flexion (S2) 4 Good Extension (L3) 4 Good PT-OP-Q Treatments Start: 11/04/17 08:37 Freq: Status: Active Protocol: Document 12/03/17 10:30 AMB (Rec: 12/03/17 11:19 AMB [id number]) Therapeutic Exercises Supine Exercises 5 Supine Exercise Name bridges Reps/Minutes 10x2 4 Supine Exercise Name air bicycle Reps/Minutes 2x10 2 Supine Exercise Name SLR with TrA stab Reps/Minutes 2x10 Sidelying Exercises 2 Sidelying Exercise Name clamshell Reps/Minutes 10x2 1 Sidelying Exercise Name hip abd Reps/Minutes 10x2 Sitting Exercises 2 Sitting Exercise Name marching, LAQ with TrA stab Reps/Minutes 30x2 Standing Exercises 1 Standing Exercise Name resisted fwd, side, backward stepping Resistance yellow tband Therapeutic Activity Therapeutic Activity 1 Name lift training Reps/Minutes 15 min Comments squat lift 10 lbs progressing to 20 from knee to chest height. PT-OP-T Assessment and Plan Start: 11/04/17 08:37 Freq: Status: Active Protocol: Document 12/03/17 10:30 AMB (Rec: 12/03/17 14:16 AMB [email or web address]) Physical Therapy Assessment Assessment Summary Assessment The patient feels like she is doing quite well, but is worried that she has another back spasm episode could happen in the future. Feels, as long as she doesn't have another back episode she would be ready for d/c in the next few visits. Physical Therapy Plan Next Visit Focus/Plan Next Note Type Treatment Note Next Visit Plan Progress core stability, body mechanics taking into account knee pain
--- NOTE | 2017-12-11 11:31 | PT.OTN ---
Current Diagnoses Polyneuropathy, unspecified (12/11/17) Other chronic pain (12/11/17) Low back pain (12/11/17) Dorsalgia, unspecified (12/11/17) Physical Therapy Treatment Note PT-OP-A Visit Information Start: 11/04/17 08:37 Freq: Status: Active Protocol: Document 12/11/17 10:30 DCW (Rec: 12/11/17 11:31 DCW [id number]) Out-Patient Physical Therapy Visit Information Visit Information Visit Type Treatment Note Visit Note G code 12/08 Visit Start Time 10:30 Visit Stop Time 11:15 Total Visit Minutes 45 Visit Number 9 Evaluation Information Evaluation Date 11/04/17 PT-OP-B Current Condition Start: 11/04/17 08:37 Freq: Status: Active Protocol: Document 11/04/17 09:45 AMB (Rec: 11/04/17 10:08 AMB [id number]) Current Condition History of Current Condition Onset Date 3 months ago, insidious onset Current Complaints Back pain that comes and goes History of Current Condition Episodic back pain. Getting up in the morning takes about 30 minutes before she feels better (stiffnes). 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 Fell the first of August and broke left scaphoid, still in cast till mid Nov. 2-3 severe back pain episodes that last a week in the last 3 months. Denies radiating leg pain. Uses the stationary bike at [facility] 3x/week. Does walk in the neighborhood. Prior Treatments and Tests MRI 09/25/17: Grade 1 anterolisthesis L4-5. Grade 1 retrolisthesis L2-L3. Left L5-S1 foraminal narrowing. Treatment Goals Patient/Caregiver Goals Learn how to manage/ prevent back pain Prior Functional Status Baseline Function- ADL's Independent Baseline Function- Mobility Independent Current Functional Impairments (Reported) Functional Limitations- ADL's During a back pain episode: walking, extended sitting, sleeping and lifting are all limited. Personal Factors Other Personal Factors That May Effect Current scaphoid (L) fracture Therapy/Recovery in a cast. Osteopenia, neuropathy affecting bilateral feet PT-OP-C Subjective Start: 11/04/17 08:37 Freq: Status: Active Protocol: Document 12/11/17 10:30 DCW (Rec: 12/11/17 11:31 DCW [id number]) OP-PT Subjective Patient Comments Patient Comments I feel fine, it's been about the same. I still get the most sore in the morning. PT-OP-J Posture/Palpation/Skin Start: 11/04/17 08:37 Freq: Status: Active Protocol: Document 11/04/17 09:45 AMB (Rec: 11/05/17 09:40 AMB [email or web address]) Posture Evaluation Comments Posture Comments The patient stands with flat lumbar spine, increased thoracic kyphosis with left shoulder high in standing. Palpation Assessment Location One Palpation Location Low back Palpation Details Stiffness with PAs in prone throughout lumbar spine and sacrum, pt denies pain with palpation, altough she does have tightness along paraspinals. PT-OP-K Range of Motion Start: 11/04/17 08:37 Freq: Status: Active Protocol: Document 11/04/17 09:45 AMB (Rec: 11/05/17 09:40 AMB [email or web address]) Lumbar Spine Range of Motion Lumbar Spine Active Percentage Testing Position standing Flexion 75 Extension 75 Lateral Flexion Left 50 Lateral Flexion Right 75 Comments discomfort with sidebending left on the right side PT-OP-L Special Tests Start: 11/04/17 08:37 Freq: Status: Active Protocol: Document 11/04/17 09:45 AMB (Rec: 11/05/17 09:43 AMB [email or web address]) Special Tests Lumbar Spine Special Tests Straight Leg Raise Test Results negative PT-OP-M Strength Start: 11/04/17 08:37 Freq: Status: Active Protocol: Document 11/04/17 09:45 AMB (Rec: 11/05/17 09:40 AMB [email or web address]) Hip Strength Hip Manual Muscle Testing Right Flexion (L2) 4+ Good+ Extension (S1) 4+ Good+ Abduction 4 Good Left Flexion (L2) 4+ Good+ Extension (S1) 4+ Good+ Abduction 4 Good Knee Strength Knee Manual Muscle Testing Right Flexion (S2) 4+ Good+ Extension (L3) 4+ Good+ Left Flexion (S2) 4 Good Extension (L3) 4 Good PT-OP-Q Treatments Start: 11/04/17 08:37 Freq: Status: Active Protocol: Document 12/11/17 10:30 DCW (Rec: 12/11/17 11:31 DCW [id number]) Cardio Equipment Recumbent Elliptical (Biodex) Duration (Minutes) 7 Resistance 5 Therapeutic Exercises Supine Exercises 6 Supine Exercise Name Bridging with alternating SLR Side bilateral Reps/Minutes 1x15 5 Supine Exercise Name bridges Reps/Minutes 10x2 4 Supine Exercise Name air bicycle Reps/Minutes 2x10 2 Supine Exercise Name SLR with TrA stab Reps/Minutes 2x10 Standing Exercises 1 Standing Exercise Name resisted fwd, side, backward stepping Resistance yellow tband Manual Therapy Treatment Soft Tissue Mobilization 2 Body Location Psoas Mobilization Type Sustained Pressure Intensity/Depth Deep Body Position Supine 1 Body Location Piriformis/QL Mobilization Type Strumming Sustained Pressure Intensity/Depth Moderate Body Position Sidelying PT-OP-T Assessment and Plan Start: 11/04/17 08:37 Freq: Status: Active Protocol: Document 12/11/17 10:30 DCW (Rec: 12/11/17 11:31 DCW [id number]) Physical Therapy Assessment Impairments Impairments Pain Posture ROM Strength Goals Three Impairment Self care Short Term Goal (STG) The patient will be independent with self pain management techniques to decrease the incidence of her back pain episodes to less than 1x/month. STG Duration 4 weeks Two Impairment Strength Short Term Goal (STG) The patient will be independent with a core and hip strengthening home exercise program. STG Duration 4 weeks Mcfp Goal (LTG) The patient will lift 10# from the floor to waist height without an increase in pain and with good body mechanics. LTG Duration 8 weeks One Impairment Activity tolerance Short Term Goal (STG) The patient will move from supine to sitting on the edge of her bed with good body mechanics without an increase in back pain. STG Duration 4 weeks Mcfp Goal (LTG) The patient will move from sit to stand with good body mechanics without an increase in baseline pain. LTG Duration 8 weeks Assessment Summary Assessment Pt likely approaching discharge, appears to be reaching progress plateau. Physical Therapy Plan Frequency and Duration Frequency of Treatment 2x/Week Duration of Treatment 8 weeks Plan of Care Start Date 11/04/17 Plan of Care End Date 12/30/17 Therapeutic Interventions Therapeutic Interventions Aquatic Therapy Balance Training Gait Training Manual Therapy Neuromuscular Re-education Patient/Caregiver Education Therapeutic Activities Therapeutic Exercises Modalities Cold Pack/Ice Massage Electric Stimulation Hot Packs Ultrasound Next Visit Focus/Plan Next Note Type Progress Note Next Visit Plan New G-codes
--- NOTE | 2017-12-18 10:44 | PT.OTN ---
Current Diagnoses Polyneuropathy, unspecified (12/18/17) Other chronic pain (12/18/17) Low back pain (12/18/17) Dorsalgia, unspecified (12/18/17) Physical Therapy Treatment Note PT-OP-A Visit Information Start: 11/04/17 08:37 Freq: Status: Active Protocol: Document 12/18/17 09:45 DCW (Rec: 12/18/17 10:44 DCW [id number]) Out-Patient Physical Therapy Visit Information Visit Information Visit Type Discharge Summary Visit Start Time 09:45 Visit Stop Time 10:30 Total Visit Minutes 45 Visit Number 10 Evaluation Information Evaluation Date 11/04/17 PT-OP-B Current Condition Start: 11/04/17 08:37 Freq: Status: Active Protocol: Document 11/04/17 09:45 AMB (Rec: 11/04/17 10:08 AMB [id number]) Current Condition History of Current Condition Onset Date 3 months ago, insidious onset Current Complaints Back pain that comes and goes History of Current Condition Episodic back pain. Getting up in the morning takes about 30 minutes before she feels better (stiffnes). 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 Fell the first of August and broke left scaphoid, still in cast till mid Nov. 2-3 severe back pain episodes that last a week in the last 3 months. Denies radiating leg pain. Uses the stationary bike at [facility] 3x/week. Does walk in the neighborhood. Prior Treatments and Tests MRI 09/25/17: Grade 1 anterolisthesis L4-5. Grade 1 retrolisthesis L2-L3. Left L5-S1 foraminal narrowing. Treatment Goals Patient/Caregiver Goals Learn how to manage/ prevent back pain Prior Functional Status Baseline Function- ADL's Independent Baseline Function- Mobility Independent Current Functional Impairments (Reported) Functional Limitations- ADL's During a back pain episode: walking, extended sitting, sleeping and lifting are all limited. Personal Factors Other Personal Factors That May Effect Current scaphoid (L) fracture Therapy/Recovery in a cast. Osteopenia, neuropathy affecting bilateral feet PT-OP-C Subjective Start: 11/04/17 08:37 Freq: Status: Active Protocol: Document 12/18/17 09:45 DCW (Rec: 12/18/17 10:44 DCW [id number]) OP-PT Subjective Patient Comments Patient Comments Pt reports that she had knee pain starting on Friday, and it was greatly limiting her mobility, but it began to improve yesterday, and now she is feeling pretty good today. PT-OP-J Posture/Palpation/Skin Start: 11/04/17 08:37 Freq: Status: Active Protocol: Document 11/04/17 09:45 AMB (Rec: 11/05/17 09:40 AMB [id number]) Posture Evaluation Comments Posture Comments The patient stands with flat lumbar spine, increased thoracic kyphosis with left shoulder high in standing. Palpation Assessment Location One Palpation Location Low back Palpation Details Stiffness with PAs in prone throughout lumbar spine and sacrum, pt denies pain with palpation, altough she does have tightness along paraspinals. PT-OP-K Range of Motion Start: 11/04/17 08:37 Freq: Status: Active Protocol: Document 11/04/17 09:45 AMB (Rec: 11/05/17 09:40 AMB [id number]) Lumbar Spine Range of Motion Lumbar Spine Active Percentage Testing Position standing Flexion 75 Extension 75 Lateral Flexion Left 50 Lateral Flexion Right 75 Comments discomfort with sidebending left on the right side PT-OP-L Special Tests Start: 11/04/17 08:37 Freq: Status: Active Protocol: Document 11/04/17 09:45 AMB (Rec: 11/05/17 09:43 AMB [email or web address]) Special Tests Lumbar Spine Special Tests Straight Leg Raise Test Results negative PT-OP-M Strength Start: 11/04/17 08:37 Freq: Status: Active Protocol: Document 11/04/17 09:45 AMB (Rec: 11/05/17 09:40 AMB [email or web address]) Hip Strength Hip Manual Muscle Testing Right Flexion (L2) 4+ Good+ Extension (S1) 4+ Good+ Abduction 4 Good Left Flexion (L2) 4+ Good+ Extension (S1) 4+ Good+ Abduction 4 Good Knee Strength Knee Manual Muscle Testing Right Flexion (S2) 4+ Good+ Extension (L3) 4+ Good+ Left Flexion (S2) 4 Good Extension (L3) 4 Good PT-OP-Q Treatments Start: 11/04/17 08:37 Freq: Status: Active Protocol: Document 12/18/17 09:45 DCW (Rec: 09/20/18 10:44 DCW [id number]) Cardio Equipment Recumbent Elliptical (Biodex) Duration (Minutes) 7 Resistance 5 Therapeutic Exercises Supine Exercises 6 Supine Exercise Name Bridging with alternating SLR Side bilateral Reps/Minutes 1x15 4 Supine Exercise Name air bicycle Reps/Minutes 2x10 2 Supine Exercise Name SLR with TrA stab Reps/Minutes 2x10 Manual Therapy Treatment Soft Tissue Mobilization 2 Body Location Psoas Mobilization Type Sustained Pressure Intensity/Depth Deep Body Position Supine 1 Body Location Piriformis/QL Mobilization Type Strumming Sustained Pressure Intensity/Depth Moderate Body Position Sidelying PT-OP-T Assessment and Plan Start: 11/04/17 08:37 Freq: Status: Active Protocol: Document 12/18/17 09:45 DCW (Rec: 12/18/17 10:44 DCW [id number]) Physical Therapy Assessment Impairments Impairments Pain Posture ROM Strength Goals Three Impairment Self care Short Term Goal (STG) The patient will be independent with self pain management techniques to decrease the incidence of her back pain episodes to less than 1x/month. STG Duration 4 weeks Two Impairment Strength Short Term Goal (STG) The patient will be independent with a core and hip strengthening home exercise program. STG Duration 4 weeks Equine Intern Goal (LTG) The patient will lift 10# from the floor to waist height without an increase in pain and with good body mechanics. LTG Duration 8 weeks One Impairment Activity tolerance Short Term Goal (STG) The patient will move from supine to sitting on the edge of her bed with good body mechanics without an increase in back pain. STG Duration 4 weeks Equine Intern Goal (LTG) The patient will move from sit to stand with good body mechanics without an increase in baseline pain. LTG Duration 8 weeks Assessment Summary Assessment At the end of today's appointment, pt reported she felt comfortable with discharge, and did not necessarily feel that one more visit would make much difference. Pt will be discharged at this time. Physical Therapy Plan Frequency and Duration Frequency of Treatment 2x/Week Duration of Treatment 8 weeks Plan of Care Start Date 11/04/17 Plan of Care End Date 12/30/17 Therapeutic Interventions Therapeutic Interventions Aquatic Therapy Balance Training Gait Training Manual Therapy Neuromuscular Re-education Patient/Caregiver Education Therapeutic Activities Therapeutic Exercises Modalities Cold Pack/Ice Massage Electric Stimulation Hot Packs Ultrasound Next Visit Focus/Plan Next Note Type Discharge Summary
== END 2018-03-02 12:33 ==
LOC: PHYS 09:45
PROVIDERS: Family Provider Internal Medicine; PCP Internal Medicine; Visit Provider Physical Medicine & Rehabilitation
DX: M54.5 Low back pain (principal); G89.29 Other chronic pain; G62.9 Polyneuropathy, unspecified; M54.9 Dorsalgia, unspecified
CPT/HCPCS: 97110; 97140; 97162; 97530

== ENCOUNTER → 2018-01-05 10:52 | Outpatient (CLI) | payer MEDICARE, OTHER, SELFPAY ==
[2018-01-05 12:45] LABS: TSH w/ Reflex to FT4 < 0.02 uIU/mL (0.47-4.68)
== END ==
PROVIDERS: Family Provider Internal Medicine; PCP Internal Medicine; Visit Provider Internal Medicine
DX: E03.9 Hypothyroidism, unspecified (principal)
CPT/HCPCS: 36415; 84439; 84443

== ENCOUNTER → 2018-04-02 11:22 | Outpatient (CLI) | payer MEDICARE, OTHER, SELFPAY ==
[2018-04-02 13:32] LABS: TSH w/ Reflex to FT4 0.02 uIU/mL (0.47-4.68)
[2018-04-02 14:12] LABS: Free T4, Direct Thyroxine 1.55 ng/dL (0.78-2.19)
== END ==
PROVIDERS: PCP Internal Medicine; Visit Provider Internal Medicine
DX: E03.9 Hypothyroidism, unspecified (principal)
CPT/HCPCS: 36415; 84439; 84443

== ENCOUNTER → 2018-06-01 10:28 | Outpatient (CLI) | payer MEDICARE, OTHER, SELFPAY ==
[2018-06-01 14:46] LABS: Free T4, Direct Thyroxine 1.27 ng/dL (0.78-2.19)
== END ==
PROVIDERS: PCP Internal Medicine; Visit Provider Internal Medicine
DX: E03.9 Hypothyroidism, unspecified (principal)
CPT/HCPCS: 36415; 84439; 84443

== ENCOUNTER → 2018-07-30 09:45 | Outpatient (CLI) | payer MEDICARE, OTHER, SELFPAY ==
[2018-07-30 11:13] LABS: Free T3, Triiodothyronine Free 3.07 pg/mL (2.77-5.27); Free T4, Direct Thyroxine 1.16 ng/dL (0.78-2.19)
[2018-07-30 11:26] LABS: Thyroid Stimulating Hormone 1.73 uIU/mL (0.47-4.68)
== END ==
PROVIDERS: PCP Student in an Organized Health Care Education/Training Program; Visit Provider Student in an Organized Health Care Education/Training Program
DX: E03.9 Hypothyroidism, unspecified (principal); E55.9 Vitamin D deficiency, unspecified
CPT/HCPCS: 36415; 82306; 84439; 84443; 84481

== ENCOUNTER 2018-12-01 08:54 | Outpatient (CLI) | payer MEDICARE, OTHER, SELFPAY ==
[2018-12-01] VITALS (10 sets, daily range): BP systolic 92–125; BP diastolic 35–77; PULSE 58–65; RESP 16–18; TEMP 36.3; O2SAT 95–100
--- NOTE | 2018-12-01 08:57 | DI.RAD.S_ITS ---
PROCEDURE: PAIN L/S TRANSFORAMINAL INJECT INDICATIONS: LOW BACK PAIN FINDINGS: Fluoroscopic spot filming was performed to verify placement of spinal needles at the left L4-5 level, as labeled on the films. Appropriate location(s) of the needle tip(s) was confirmed by injection of iodinated contrast. IMPRESSION: Left L4-L5 needle tip localization for transforaminal epidural steroid injection. Dictated by: Maged Gregg M.D. on 12/01/2018 at 14:30 Approved by: Maged Gregg M.D. on 12/01/2018 at 14:31
[2018-12-01] MEDS: fentaNYL 100 MCG/2 ML INJ 50 MCG IV (09:55)
[2018-12-01] MEDS: MIDAZOLAM 5 MG/5 ML VIAL IV (09:55)
[2018-12-01] MEDS: BUPIVACAINE 0.25% (PF) VIAL 2 ML INJ (10:02)
[2018-12-01] MEDS: BETAMETHASONE 30 MG/5 ML MDV 6 MG INJ (10:03)
[2018-12-01] MEDS: DEXAMETHASONE 10 MG/ML VIAL 20 MG INJ (10:03)
[2018-12-01] MEDS: IOPAMIDOL 15 ML VIAL 3 ML INJ (10:03)
--- NOTE | 2018-12-01 10:06 | PC.NURSE ---
ASSISTING PT OFF TABLE AND TRANSPORTING TO POST PROC AREA IN STABLE CONDITION
--- NOTE | 2018-12-01 10:13 | PM.PROC.1 ---
Procedures Date/Time Date of procedure: 12/01/18 Time of procedure: 10:13 General Procedure description: PREOP DIAGNOSIS 1. FORMAINAL STENOSIS WITH LE SYMPTOMS POST OP DIAGNOSIS 1. FORMAINAL STENOSIS WITH LE SYMPTOMS PROCEDURES 1. FLUOROSCOPICALLY GUIDED CONTRAST CONTROLLED TRANSFORAMINAL EPIDURAL STEROID INJECTION - LEFT L4/5 PHYSICIAN: Wesley Hensley DO INDICATIONS: Britney is referred by Dr. Bender for treatment of Foraminal Stenosis with Left LE Symptoms FINDINGS Foraminal Nerve Root Compression secondary to disc disease and facet hypertrophy DESCRIPTION OF PROCEDURE: Following review of allergy and review of potential side effects and complications, including, but not necessarily limited to, infection, allergic reaction, local tissue breakdown, stroke, temporary or permanent nerve injury, paralysis, and possible , the patient indicated that the patient understood and agreed to proceed. An informed consent document was signed by the patient, witnessed by a nurse, and placed in the patient's chart. Additionally, other treatment options including medications, modalities, and physical therapy were reviewed with the patient. After review of previous anaesthesic history and IV conscious sedation the patient was deemed safe to proceed with todays procedure with IV conscious sedation as ASA class II designation. Safety time-out was performed to confirm patient ID, procedure to be performed and site of procedure. IV sedation was accomplished with a combination of 2mg of Versed and 50mcg of Fentanyl administered by the RN after DO order, titrated to patient comfort during the course of the procedure while the patient remained responsive to all verbal commands In the prone position following sterile prep and drape of the lumbar region, the left L4/5 posterior neuroforamen was identified fluoroscopically. The skin was anesthetized via a 25-gauge 1.5-inch needle with 1% lidocaine solution. At this point, a 25-gauge 3.5-inch spinal needle was atraumatically introduced and advanced under fluoroscopic guidance through the posterior left L4/5 neuroforamen to approximately the anterior aspect of the canal. Depth was confirmed on lateral view. Following negative aspiration, injection of approximately 1.5 cc of Isovue 200 under live fluoroscopy in the AP view confirmed excellent flow along the nerve root, into the epidural space without vascular or intrathecal uptake observed Radiological data, including multiple fluoroscopic views of the lumbosacral spine, reveal a spinal needle at the left L4/5 posterior neuroforamen. Subsequent views show flow of contrast material flowing superiorly and inferiorly along the nerve root confirming epidural flow. Subsequently, a test dose of 1.5 cc of 1% lidocaine solution was administered and patient was observed for two minutes for signs or symptoms of complications, including abdominal pain, shortness of breath, bilateral upper or lower extremity weakness, nausea and vomiting, prior to steroid injection. At this point, a total of 3cc or 20mg of dexamethasone and 6mg of betamethasone was injected without incident. The procedure tolerated the procedure well without signs or symptoms of complications prior to transfer to the recovery area continued monitoring without incident. The patient was then transferred to the recovery area where they were observed for an appropriate time after the injection. The patient reported a VAS score of 7 prior to the procedure and a post-procedure VAS of 0. Total Fluoroscopy Time: 20.9 seconds Total Conscious Sedation Time: 24min POST OP INSTRUCTIONS The patient was provided a Pain Log to continue to record their response to the target-specific procedure prior to follow-up visit with their referring physician. Additionally, specific post-injection care instructions and a contact number to our office were provided if concerns arise regarding possible complications associated with the procedure are suspected. Wesley Hensley DO Complications: none
--- NOTE | 2018-12-01 10:16 | PC.NURSE ---
Returns to recovery area at 1012 Stable and able to amb to chair
== END 2018-12-01 10:37 ==
LOC: RAD 08:56
PROVIDERS: PCP Student in an Organized Health Care Education/Training Program; Visit Provider Physical Medicine & Rehabilitation
DX: M48.061 Spinal stenosis, lumbar region without neurogenic claudication (principal); M51.16 Intervertebral disc disorders with radiculopathy, lumbar region; M47.27 Other spondylosis with radiculopathy, lumbosacral region
CPT/HCPCS: 64483; 99152; J0702; J1100; J2250; J3010

== ENCOUNTER 2019-03-01 13:09 | Emergency (ER) | payer MEDICARE, OTHER, SELFPAY ==
[2019-03-01 13:17] VITALS: BP 128/86; PULSE 65; RESP 14; TEMP 36.9; O2SAT 100
[2019-03-01] MEDS: ONDANSETRON 4 MG/2 ML INJ IV (13:43)
[2019-03-01] MEDS: SODIUM CHLORIDE 0.9% 1,000 ML 1000 ML IV (13:43)
[2019-03-01] MEDS: METOCLOPRAMIDE 10 MG/2 ML INJ IV (13:43)
[2019-03-01 14:03] LABS: Add Manual Diff / Slide Review NO; Basophils Absolute Auto 0 /uL (0-100); Basophils Percent Auto 0.3 % (0-2); Eosinophils Absolute Auto 0 /uL (0-450); Eosinophils Percent Auto 0.7 % (2-4); Hematocrit 42.5 % (36-46); Hemoglobin 14.6 g/dL (12.0-16.0); Lymphocytes Absolute Auto 600 /uL (1100-4500); Mean Corpuscular HGB Conc 34.4 % (30-36); Mean Corpuscular Hemoglobin 31.3 PG (26-34); Mean Corpuscular Volume 90.9 fL (80-100); Monocytes Absolute Auto 700 /uL (0-900); Neutrophils Absolute Auto 4300 /uL (1500-7000); Platelet Count 208 X10^3/uL (150-400); Red Blood Cell Count 4.68 X10^6/uL (4.0-5.2); Red Cell Distribution Width 13.2 % (11.6-14.8); White Blood Cell Count 5.6 X10^3/uL (4.5-11.0)
[2019-03-01 14:17] LABS: Alanine Aminotransferase 20 IU/L (<35); Albumin 4.5 g/dL (3.5-5.0); Albumin Globulin Ratio 1.5 (1.0-2.8); Alkaline Phosphatase 105 U/L (38-126); Aspartate Aminotransferase 38 IU/L (14-36); BUN Creatinine Ratio 18.6 (6-22); Bilirubin Total 0.9 mg/dL (0.2-1.3); Blood Urea Nitrogen 13 mg/dL (7-17); Calcium 9.5 mg/dL (8.4-10.2); Carbon Dioxide 28 mmol/L (22-32); Chloride 100 mmol/L (98-107); Estimated Glomerular Filt Rate > 60.0 mL/min (>60); Globulin 3.1 g/dL (1.7-4.1); Glucose 124 mg/dL (80-110); HEMOLYSIS < 15 (0-50); Sodium 138 mmol/L (137-145); Total Protein 7.6 g/dL (6.3-8.2)
[2019-03-01] MEDS: KETOROLAC 60 MG/2 ML VIAL 30 MG IV (14:26)
[2019-03-01 14:43] LABS: Ethanol (ETOH) < 10 mg/dL
--- NOTE | 2019-03-01 15:26 | ED_ITS ---
HPI - Headache <FERMIN Morris - Last Filed: 03/01/19 17:00> General Chief Complaint: Headache Stated Complaint: migrane Time Seen by Provider: 03/01/19 13:22 Source: patient and family Mode of arrival: Ambulatory Limitations: no limitations History of Present Illness HPI Narrative: The patient is a 78-year-old female nonsmoker with history of migraine who presents with a chief complaint of a headache for the past several days. She states it got much worse yesterday, associated nausea vomiting as well as photophobia and phonophobia. She states that she started having the migraine about 3 days prior. She states she has a history of migraines, did not take anything for her migraine and she is concerned that caffeine causes her migraines and caffeine is one of her migraine medications. She complains of, nausea vomiting, queasiness denies abdominal pain, chest pain or shortness of breath. she states she has slightly slurred speech at normal, her states that this is normal for her. She states that she has been under lot of stress lately, with the passing of her 1st last week. Related Data Home Medications Medication Instructions Recorded Confirmed Osteoben for calcium 4 tab PO DAILY 10/23/18 10/23/18 vitamin e PO 10/23/18 10/23/18 levothyroxine 88 mcg PO DAILY 03/01/19 03/01/19 Previous Rx's Medication Instructions Recorded quinine sulfate 324 mg capsule 324 mg PO BEDTIME PRN #30 cap 01/04/19 [id number] 2 cap PO Q4H PRN #30 cap MDD 6 caps 01/27/19 50 mg-325 mg-40 mg capsule Allergies Allergy/AdvReac Type Severity Reaction Status Date / Time No Known Allergies Allergy Uncoded 01/04/19 09:14 Review of Systems <FERMIN Morris - Last Filed: 03/01/19 17:00> Review of Systems Narrative: GENERAL: Denies chills, fatigue, malaise, fever, sweats. HEENT: Denies sinus pain, ear pain, sore throat, difficulty swallowing, dizziness. RESPIRATORY: Denies dyspnea, cough, wheezing, hemoptysis, sputum. CARDIOVASCULAR: Denies chest pain, palpitations, orthopnea, edema, GASTROINTESTINAL: See HPI : Denies dysuria, frequency, incontinence, hematuria, urinary retention. MUSCULOSKELETAL: denies weakness, joint pain, or bony pain SKIN: Denies rash, skin lesions, or other NEUROLOGIC: See HPI PSYCHIATRIC: No concerning psychosocial issues. 12 point review of systems is negative except for those stated above Patient History <FERMIN Morris - Last Filed: 03/01/19 17:00> Medical History Venous insufficiency of both lower extremities (Acute) Social History Smoking Status: Never smoker Substance Use Type: does not use Exam <FERMIN Morris - Last Filed: 03/01/19 17:00> Narrative Exam Narrative: GENERAL: This is a well-nourished, well-developed patient, in no acute distress HEAD: Atraumatic. Normocephalic. No temporal or scalp tenderness. EYES: Pupils equal round and reactive. Extraocular motions intact. No scleral icterus. No injection or drainage. ENT: Nose without bleeding, purulent drainage or septal hematoma. Throat without erythema, tonsillar hypertrophy or exudate. Uvula midline. Airway patent. NECK: Trachea midline. No JVD or lymphadenopathy. Supple, nontender, no meningeal signs. CARDIOVASCULAR: Regular rate and rhythm RESPIRATORY: Clear to auscultation. Breath sounds equal bilaterally. No wheezes, rales, or rhonchi. GASTROINTESTINAL: Abdomen soft, non-tender, nondistended. No hepato-spleno megaly, or palpable masses. No guarding. EXTREMITIES: No clubbing, cyanosis, or edema. No joint tenderness, effusion, or edema noted. BACK: Nontender without deformity or crepitance. No flank tenderness. NEURO: AOx3. Strength is equal upper and lower extremities bilaterally. cranial nerves grossly intact. GCS 15. SKIN: No rash or erythema visible skin Initial Vital Signs Initial Vital Signs: Vital Signs Temperature 98.4 F 03/01/19 13:17 Pulse Rate 65 03/01/19 13:17 Respiratory Rate 14 03/01/19 13:17 Blood Pressure 128/86 03/01/19 13:17 Pulse Oximetry 100 03/01/19 13:17 <Michael Ivy DO - Last Filed: 03/01/19 17:48> Initial Vital Signs Initial Vital Signs: Vital Signs Temperature 98.4 F 03/01/19 13:17 Pulse Rate 65 03/01/19 13:17 Respiratory Rate 14 03/01/19 13:17 Blood Pressure 128/86 03/01/19 13:17 Pulse Oximetry 100 03/01/19 13:17 Scores <FERMIN Morris - Last Filed: 03/01/19 17:00> GCS [place] coma scale eye opening: Spontaneous [place] coma scale verbal response: Orientated [place] coma scale motor response: Obey commands Sanju coma scale total score: 15 NIH Stroke Scale Level of Conciousness: Alert, keenly responsive Ask month/age: Answers both questions correctly. Open/close eyes, close hand: Performs both tasks correctly Best gaze horizontal: Normal Visual [place]: No visual loss Facial palsy: Normal symetrical movement Left arm drift: No drift for full 10 sec Right arm drift: No drift for full 10 sec Left leg drift: No drift for full 10 sec Right leg drift: No drift for full 10 sec Limb ataxia: Absent Sensory on face/arms/legs: Normal, no sensory loss Best language: Mild to moderate, slurs some words Dysarthria: Normal Extinction or inattention: No abnormality Total NIH Stroke scale score: 1 Course <FERMIN Morris - Last Filed: 03/01/19 17:00> Orders Ordered: ED Orders 03/01/19 13:38 Complete Blood Count AUTO DIFF Stat Comprehensive Metabolic Panel Stat Ethanol (ETOH) Stat Discontinued Medications Sodium Chloride (Normal Saline 0.9%) 1,000 mls @ 1,000 mls/hr IV BOLUS ONE Stop: 03/01/19 14:34 Last Infusion: 03/01/19 14:29 Dose: 0 mls/hr Documented by: Admin: 03/01/19 13:43 Dose: 1,000 mls/hr Documented by: JARETH Ketorolac Tromethamine (Toradol) 30 mg IV NOW ONE Stop: 03/01/19 14:24 Last Admin: 03/01/19 14:26 Dose: 30 mg Documented by: JARETH Metoclopramide HCl (Reglan) 10 mg IV NOW ONE Stop: 03/01/19 13:36 Last Admin: 03/01/19 13:43 Dose: 10 mg Documented by: JARETH Ondansetron HCl (Zofran) 4 mg IV NOW ONE Stop: 03/01/19 13:36 Last Admin: 03/01/19 13:43 Dose: 4 mg Documented by: JARETH Vital Signs Vital signs: Vital Signs - 8 hr 03/01/19 13:17 03/01/19 15:28 Temperature 98.4 F Pulse Rate 65 61 Respiratory Rate 14 17 Blood Pressure 128/86 Blood Pressure [Right Arm] 113/46 L Pulse Oximetry 100 97 <Michael Ivy DO - Last Filed: 03/01/19 17:48> Orders Ordered: ED Orders 03/01/19 13:38 Complete Blood Count AUTO DIFF Stat Comprehensive Metabolic Panel Stat Ethanol (ETOH) Stat Discontinued Medications Sodium Chloride (Normal Saline 0.9%) 1,000 mls @ 1,000 mls/hr IV BOLUS ONE Stop: 03/01/19 14:34 Last Infusion: 03/01/19 14:29 Dose: 0 mls/hr Documented by: Admin: 03/01/19 13:43 Dose: 1,000 mls/hr Documented by: JARETH Ketorolac Tromethamine (Toradol) 30 mg IV NOW ONE Stop: 03/01/19 14:24 Last Admin: 03/01/19 14:26 Dose: 30 mg Documented by: JARETH Metoclopramide HCl (Reglan) 10 mg IV NOW ONE Stop: 03/01/19 13:36 Last Admin: 03/01/19 13:43 Dose: 10 mg Documented by: JARETH Ondansetron HCl (Zofran) 4 mg IV NOW ONE Stop: 03/01/19 13:36 Last Admin: 03/01/19 13:43 Dose: 4 mg Documented by: JARETH Vital Signs Vital signs: Vital Signs - 8 hr 03/01/19 13:17 03/01/19 15:28 Temperature 98.4 F Pulse Rate 65 61 Respiratory Rate 14 17 Blood Pressure 128/86 Blood Pressure [Right Arm] 113/46 L Pulse Oximetry 100 97 MDM - Headache <FERMIN Morris - Last Filed: 03/01/19 17:00> Lab Data Result diagrams: 03/01/19 13:38 03/01/19 13:38 Labs: Lab Results 03/01/19 03/01/19 03/01/19 Range/Units 13:38 13:38 13:38 WBC 5.6 (4.5-11.0) X10^3/uL RBC 4.68 (4.0-5.2) X10^6/uL Hgb 14.6 (12.0-16.0) g/dL Hct 42.5 (36-46) % MCV 90.9 (80-100) fL MCH 31.3 (26-34) PG MCHC 34.4 (30-36) % RDW 13.2 (11.6-14.8) % Plt Count 208 (150-400) X10^3/uL Neut % (Auto) 76.0 H (50-75) % Lymph % (Auto) 11.0 L (25-40) % Dixie % (Auto) 12.0 (3-14) % Eos % (Auto) 0.7 L (2-4) % Baso % (Auto) 0.3 (0-2) % Neut # (Auto) 4300 (1119-4411) /uL Lymph # (Auto) 600 L (2202-2662) /uL Dixie # (Auto) 700 (0-900) /uL Eos # (Auto) 0 (0-450) /uL Baso # (Auto) 0 (0-100) /uL Sodium 138 (137-145) mmol/L Potassium 4.0 (3.4-5.1) mmol/L Chloride 100 (98-107) mmol/L Carbon Dioxide 28 (22-32) mmol/L BUN 13 (7-17) mg/dL Creatinine 0.70 (0.52-1.04) mg/dL Estimated GFR > 60.0 (>60) mL/min BUN/Creatinine Ratio 18.6 (6-22) Glucose 124 H (80-110) mg/dL Calcium 9.5 (8.4-10.2) mg/dL Total Bilirubin 0.9 (0.2-1.3) mg/dL AST 38 H (14-36) IU/L ALT 20 (<35) IU/L Alkaline Phosphatase 105 (38-126) U/L Total Protein 7.6 (6.3-8.2) g/dL Albumin 4.5 (3.5-5.0) g/dL Globulin 3.1 (1.7-4.1) g/dL Albumin/Globulin Ratio 1.5 (1.0-2.8) Ethyl Alcohol < 10 ( - 10) mg/dL Point of Care Testing Glucose POC 121 MDM Narrative Medical decision making narrative: The patient is a 78-year-old female presents with a chief complaint of a migraine going on for the past several days. Her NIH is 1 due to slurred speech, however she says that this is normal for her and her agrees with her. She was treated with headache medication in the emergency department stated that she felt much improved. Given her slurred speech, I did offer her CT, which she declined. Encouraged follow-up with PCP as well as [id number] medications as needed and able. The patient states understanding and has no questions or concerns upon discharge and states understanding of return precautions as well as follow-up care. Discussed at length return precautions of any acute concerns, neurologic concerns etc. Discussed signs symptoms of stroke such as slurred speech etc. Patient has been have no questions or concerns upon discharge <Michael Ivy, - Last Filed: 03/01/19 17:48> Lab Data Labs: Lab Results 03/01/19 03/01/19 03/01/19 Range/Units 13:38 13:38 13:38 WBC 5.6 (4.5-11.0) X10^3/uL RBC 4.68 (4.0-5.2) X10^6/uL Hgb 14.6 (12.0-16.0) g/dL Hct 42.5 (36-46) % MCV 90.9 (80-100) fL MCH 31.3 (26-34) PG MCHC 34.4 (30-36) % RDW 13.2 (11.6-14.8) % Plt Count 208 (150-400) X10^3/uL Neut % (Auto) 76.0 H (50-75) % Lymph % (Auto) 11.0 L (25-40) % Dixie % (Auto) 12.0 (3-14) % Eos % (Auto) 0.7 L (2-4) % Baso % (Auto) 0.3 (0-2) % Neut # (Auto) 4300 (6014-2982) /uL Lymph # (Auto) 600 L (6067-8496) /uL Dixie # (Auto) 700 (0-900) /uL Eos # (Auto) 0 (0-450) /uL Baso # (Auto) 0 (0-100) /uL Sodium 138 (137-145) mmol/L Potassium 4.0 (3.4-5.1) mmol/L Chloride 100 (98-107) mmol/L Carbon Dioxide 28 (22-32) mmol/L BUN 13 (7-17) mg/dL Creatinine 0.70 (0.52-1.04) mg/dL Estimated GFR > 60.0 (>60) mL/min BUN/Creatinine Ratio 18.6 (6-22) Glucose 124 H (80-110) mg/dL Calcium 9.5 (8.4-10.2) mg/dL Total Bilirubin 0.9 (0.2-1.3) mg/dL AST 38 H (14-36) IU/L ALT 20 (<35) IU/L Alkaline Phosphatase 105 (38-126) U/L Total Protein 7.6 (6.3-8.2) g/dL Albumin 4.5 (3.5-5.0) g/dL Globulin 3.1 (1.7-4.1) g/dL Albumin/Globulin Ratio 1.5 (1.0-2.8) Ethyl Alcohol < 10 ( - 10) mg/dL Point of Care Testing Glucose POC 121 Discharge Plan Departure Patient Disposition: Home Clinical Impression: Headache Qualifiers: Headache type: unspecified Headache chronicity pattern: acute headache Intractability: not intractable Qualified Code(s): R51 - Headache Discharge Date/Time: 03/01/19 15:32 Instructions: DI for Migraine, DI for Headache Activity Restrictions/Additional Instructions: Today your lab work came back well and you responded well to migraine treatment. Please go home and rest, push fluids. Please use [id number] medications as needed and able. Please do not hesitate to come back to the emergency department for any acute concerns including concerns of stroke, heart attack etc. Signs of stroke include dizziness, weakness on 1 side, slurred speech, facial droop. Signs of heart attack can include chest pain, shortness breath, etc Prescriptions: No Action [id number]-[id number]-[id number] 50-325-40 mg capsule 2 cap PO Q4H MDD 6 caps PRN (Reason: migraine headache) Qty: 30 RF: 5 levothyroxine 88 mcg tablet 88 mcg PO DAILY RF: 0 Osteoben for calcium 4 tab PO DAILY RF: 0 vitamin e PO RF: 0 quinine sulfate 324 mg capsule 324 mg PO BEDTIME PRN (Reason: leg cramps) Qty: 30 RF: 0 Referrals: Jad Bender MD [Primary Care Provider] - <Michael Ivy, - Last Filed: 03/01/19 17:48> Sign Out Provider Sign Out Attestation: Dr Ivy Co-Sign Statement: I was available for consultation during this patient's emergency department visit. This chart is signed by myself for administrative purposes only. I did not have direct contact with this patient during this visit. They were seen independently by the APC.
[2019-03-01 15:28] VITALS: BP 113/46; PULSE 61; RESP 17; O2SAT 97
[2019-03-02 15:40] LABS: Hemoglobin A1C% w Est Avg Glu 5.3 % (4.0-6.0)
== END 2019-03-01 15:32 | disposition home or self-care (01) ==
PROVIDERS: Emergency Medicine; Emergency Provider Nurse Practitioner Family; PCP Student in an Organized Health Care Education/Training Program
DX: G43.909 Migraine, unspecified, not intractable, without status migrainosus (principal)
CPT/HCPCS: 36415; 80053; 80320; 82962; 83036; 85025; 96361; 96374; 96375; 99283; 99284; J1885; J2405; J2765

== ENCOUNTER → 2019-03-11 10:54 | Outpatient (CLI) | payer MEDICARE, OTHER, SELFPAY ==
--- NOTE | 2019-03-11 | DI.MG.S_ITS ---
BILATERAL DIGITAL SCREENING MAMMOGRAM 3D/2D WITH CAD: 03/11/2019 CLINICAL: Routine screening. Family history of breast cancer. Comparison is made to exams dated: 03/03/2017 mammogram, 01/31/2016 mammogram, and 01/20/2015 mammogram - [facility]. There are scattered fibroglandular elements in both breasts. Current study was also evaluated with a Computer Aided Detection (CAD) system. There is a biopsy clip in the right breast. No significant masses, calcifications, or other findings are seen in either breast. There has been no significant interval change. IMPRESSION: NEGATIVE There is no mammographic evidence of malignancy. A 1 year screening mammogram is recommended. This exam was interpreted at Station ID: [id number]. NOTE: For mammograms, a report in lay terms will be sent to the patient. Approximately 15% of breast malignancies will not be visualized mammographically. In the management of a palpable breast mass, a negative mammogram must not discourage biopsy of a clinically suspicious lesion. Electronically Signed By: Caity coronado/david:03/11/2019 12:09:23 letter sent: Normal Exam ACR BI-RADS Category 1: Negative 3341F
== END ==
PROVIDERS: PCP Student in an Organized Health Care Education/Training Program; Visit Provider Student in an Organized Health Care Education/Training Program
DX: Z12.31 Encounter for screening mammogram for malignant neoplasm of breast (principal); Z80.3 Family history of malignant neoplasm of breast
CPT/HCPCS: 77063; 77067

== ENCOUNTER → 2019-03-19 09:34 | Outpatient (CLI) | payer MEDICARE, OTHER, SELFPAY ==
[2019-03-19 11:46] LABS: Vitamin B12 356 pg/mL (239-931)
== END ==
PROVIDERS: PCP Student in an Organized Health Care Education/Training Program; Visit Provider Student in an Organized Health Care Education/Training Program
DX: G47.62 Sleep related leg cramps (principal)
CPT/HCPCS: 36415; 82607

== ENCOUNTER → 2019-11-19 14:40 | Outpatient (CLI) | payer MEDICARE, OTHER, SELFPAY | PROVIDERS: PCP Student in an Organized Health Care Education/Training Program; Referring Provider Student in an Organized Health Care Education/Training Program; Visit Provider Student in an Organized Health Care Education/Training Program | DX: M81.0 Age-related osteoporosis without current pathological fracture (principal); Z78.0 Asymptomatic menopausal state; E07.9 Disorder of thyroid, unspecified; M15.9 Polyosteoarthritis, unspecified; Z90.722 Acquired absence of ovaries, bilateral | CPT/HCPCS: 77080 ==

== ENCOUNTER → 2020-01-07 08:36 | Outpatient (CLI) | payer MEDICARE, OTHER, SELFPAY ==
--- NOTE | 2020-01-07 08:37 | DI.RAD.S_ITS ---
PROCEDURE: XR CHEST 2V INDICATIONS: Left sided chest/rib pain no trauma TECHNIQUE: 2 views of the chest were acquired. COMPARISON: [facility], , CHEST 2 VIEW, 06/29/2016, 6:52. FINDINGS: Surgical changes and devices: None. Lungs and pleura: Lungs are clear. No pleural effusions or pneumothorax. Lungs are hyperexpanded suggestive of COPD. Mediastinum: Mediastinal contours are normal. Heart size is normal. Bones and chest wall: No suspicious bony abnormalities. Soft tissues appear unremarkable. IMPRESSION: No acute pulmonary process. Dictated by: Jaqui Marroquin M.D. on 01/07/2020 at 13:33 Approved by: Jaqui Marroquin M.D. on 01/07/2020 at 13:34
== END ==
PROVIDERS: PCP Student in an Organized Health Care Education/Training Program; Referring Provider Student in an Organized Health Care Education/Training Program; Visit Provider Student in an Organized Health Care Education/Training Program
DX: R07.89 Other chest pain (principal); R07.81 Pleurodynia
CPT/HCPCS: 71046

== ENCOUNTER → 2020-03-13 12:10 | Outpatient (CLI) | payer MEDICARE, OTHER, SELFPAY ==
--- NOTE | 2020-03-13 | DI.MG.S_ITS ---
BILATERAL DIGITAL SCREENING MAMMOGRAM 3D/2D WITH CAD: 03/13/2020 CLINICAL: Family history of breast cancer. Routine screening. Comparison is made to exams dated: 03/11/2019 mammogram, 03/03/2017 mammogram, and 01/31/2016 mammogram - [facility]. There are scattered fibroglandular elements in both breasts. Current study was also evaluated with a Computer Aided Detection (CAD) system. There is a benign calcification in the left breast. There also is a biopsy clip in the right breast. No significant masses, calcifications, or other findings are seen in either breast. There has been no significant interval change. IMPRESSION: BENIGN There is no mammographic evidence of malignancy. A 1 year screening mammogram is recommended. This exam was interpreted at Station ID: [id number]. NOTE: For mammograms, a report in lay terms will be sent to the patient. Approximately 15% of breast malignancies will not be visualized mammographically. In the management of a palpable breast mass, a negative mammogram must not discourage biopsy of a clinically suspicious lesion. Electronically Signed By: Blake Mccartney acr/penrad:03/13/2020 16:54:20 letter sent: Normal Exam ACR BI-RADS Category 2: Benign Finding(s) 3342F
== END ==
PROVIDERS: PCP Student in an Organized Health Care Education/Training Program; Referring Provider Student in an Organized Health Care Education/Training Program; Visit Provider Student in an Organized Health Care Education/Training Program
DX: Z12.31 Encounter for screening mammogram for malignant neoplasm of breast (principal); Z80.3 Family history of malignant neoplasm of breast
CPT/HCPCS: 77063; 77067

== ENCOUNTER → 2020-08-31 10:02 | Outpatient (CLI) | payer MEDICARE, OTHER, SELFPAY ==
--- NOTE | 2020-08-31 10:04 | DI.RAD.S_ITS ---
PROCEDURE: XR CHEST 2V INDICATIONS: Left rib deformity and soreness TECHNIQUE: 2 views of the chest were acquired. COMPARISON: [facility], , XR CHEST 2V, 01/07/2020, 8:32. [facility], , CHEST 2 VIEW, 06/29/2016, 6:52. FINDINGS: Surgical changes and devices: None. Lungs and pleura: Hypoinflated lungs. Diffuse prominence of the pulmonary markings. No consolidation. No pleural effusions or pneumothorax. Mediastinum: Mediastinal contours are unchanged. Heart size is within normal limits. Bones and chest wall: No suspicious bony abnormalities. Soft tissues appear unremarkable. IMPRESSION: No acute cardiopulmonary abnormality. Emphysematous change suspected. No obvious displaced rib fracture. If indicated consider dedicated rib radiographs or CT. Dictated by: Federico Coles M.D. on 08/31/2020 at 10:47 Approved by: Federico Coles M.D. on 08/31/2020 at 10:50
== END ==
PROVIDERS: PCP Student in an Organized Health Care Education/Training Program; Referring Provider Student in an Organized Health Care Education/Training Program; Visit Provider Student in an Organized Health Care Education/Training Program
DX: M95.4 Acquired deformity of chest and rib (principal)
CPT/HCPCS: 71046

== ENCOUNTER → 2020-09-04 10:06 | Outpatient (CLI) | payer MEDICARE, OTHER, SELFPAY ==
[2020-09-04 11:29] LABS: BUN Creatinine Ratio 15.7 (6-22); Blood Urea Nitrogen 14 mg/dL (7-17); Carbon Dioxide 28 mmol/L (22-32); Chloride 103 mmol/L (98-107); Estimated Glomerular Filt Rate > 60.0 mL/min (>60); Glucose 97 mg/dL (80-110); HEMOLYSIS < 15 (0-50); Potassium 4.3 mmol/L (3.4-5.1); Sodium 138 mmol/L (137-145)
[2020-09-04 11:36] LABS: Vitamin D 25 Hydroxy (D3) 41.8 ng/mL (30.0-100.0)
[2020-09-04 12:21] LABS: Free T4, Direct Thyroxine 1.09 ng/dL (0.78-2.19)
== END ==
PROVIDERS: PCP Student in an Organized Health Care Education/Training Program; Referring Provider Student in an Organized Health Care Education/Training Program; Visit Provider Student in an Organized Health Care Education/Training Program
DX: E03.9 Hypothyroidism, unspecified (principal); M81.0 Age-related osteoporosis without current pathological fracture; G43.909 Migraine, unspecified, not intractable, without status migrainosus
CPT/HCPCS: 36415; 80048; 82306; 84439; 84443

== ENCOUNTER → 2020-09-20 09:25 | Outpatient (CLI) | payer MEDICARE, OTHER, SELFPAY ==
[2020-09-20 10:32] LABS: COVID19 -Nasal RAPID Negative (Negative)
== END ==
PROVIDERS: PCP Student in an Organized Health Care Education/Training Program; Referring Provider Internal Medicine; Visit Provider Internal Medicine
DX: Z20.822 Contact with and (suspected) exposure to COVID-19 (principal)
CPT/HCPCS: 87635; C9803

== ENCOUNTER → 2020-09-21 08:44 | Outpatient (CLI) | payer MEDICARE, OTHER, SELFPAY ==
--- NOTE | 2020-09-27 10:20 | PM.PFT.1 ---
Pulmonary Function Test Referral & Results Date Patient Seen: 09/21/20 Requesting provider: Jad Bender Results: The spirometry demonstrates an FVC of 2.87 L which is 85% of predicted. The FEV1 was measured at 1.93 L which is 76% of predicted. The FEV1/FVC ratio was 67 which is 90% of predicted. Following the administration of bronchodilator there was an 18% improvement in FEV1, at 13% improvement in FEV1/FVC ratio and a 177% improvement in FEF 25-75%. Lung volumes show an SVC of 2.85 L which is 89% of predicted. The diffusing capacity was measured at 22.05 which is 71% of predicted. No hemoglobin value was provided, so no correction for potential anemia could be made, if appropriate. The maximum voluntary ventilation was normal Interpretation: This study demonstrates probably mild obstructive lung disease based on reduction FEV1 although FEV1/FVC ratio is preserved, shape a flow volume loop supports obstructive lung disease and there is also evidence of significant benefit following bronchodilator as noted above particularly small airway flow based on improvement in FEF 25-75% Lung volumes are probably normal although there may be a minimal reduction in SVC suggesting very minimal restrictive lung disease There is also mild reduction in diffusing capacity suggesting element of disease at the capillary alveolar level unless patient is anemic as above
== END ==
PROVIDERS: PCP Student in an Organized Health Care Education/Training Program; Referring Provider Student in an Organized Health Care Education/Training Program; Visit Provider Student in an Organized Health Care Education/Training Program
DX: R09.89 Other specified symptoms and signs involving the circulatory and respiratory systems (principal); J98.8 Other specified respiratory disorders; R93.89 Abnormal findings on diagnostic imaging of other specified body structures
CPT/HCPCS: 94060; 94726; 94729

== ENCOUNTER → 2020-10-17 07:56 | Outpatient (CLI) | payer MEDICARE, OTHER, SELFPAY ==
[2020-10-17 09:18] LABS: Free T3, Triiodothyronine Free 2.39 pg/mL (2.77-5.27); Free T4, Direct Thyroxine 1.01 ng/dL (0.78-2.19)
[2020-10-17 09:31] LABS: Thyroid Stimulating Hormone 14.4 uIU/mL (0.47-4.68)
[2020-10-18 17:08] LABS: Thyroid Peroxidase Antibodies <8 IU/mL (0-34)
== END ==
PROVIDERS: PCP Student in an Organized Health Care Education/Training Program; Referring Provider Student in an Organized Health Care Education/Training Program; Visit Provider Student in an Organized Health Care Education/Training Program
DX: E03.9 Hypothyroidism, unspecified (principal)
CPT/HCPCS: 36415; 84439; 84443; 84481; 86376; 86800

== ENCOUNTER 2020-11-09 09:30 | Emergency (ER) | payer MEDICARE, OTHER, SELFPAY ==
[2020-11-09 09:35] VITALS: PULSE 79; O2SAT 88
[2020-11-09 09:36] VITALS: BP 125/60; PULSE 78; O2SAT 97
--- NOTE | 2020-11-09 09:37 | DI.RAD.S_ITS ---
PROCEDURE: XR CHEST 1V INDICATIONS: chest pain TECHNIQUE: One view of the chest was acquired. COMPARISON: [facility], CR, XR CHEST 2V, 08/31/2020, 10:06. FINDINGS: Surgical changes and devices: None. Lungs and pleura: Lungs are clear. No pleural effusions or pneumothorax. Lungs are hyperinflated suggestive of COPD. Chronic interstitial changes are present. Mediastinum: Mediastinal contours appear normal. Heart size is normal. Bones and chest wall: No suspicious bony lesions. Overlying soft tissues appear unremarkable. IMPRESSION: No acute pulmonary process. Dictated by: Jaqui Marroquin M.D. on 11/09/2020 at 10:17 Approved by: Jaqui Marroquin M.D. on 11/09/2020 at 10:17
[2020-11-09 09:39] VITALS: BP 125/72; PULSE 72; RESP 16; TEMP 36.9; O2SAT 98; BMI 20.9
[2020-11-09 09:55] LABS: Add Manual Diff / Slide Review NO; Basophils Absolute Auto 100 /uL (0-100); Basophils Percent Auto 1.2 % (0-2); Eosinophils Absolute Auto 100 /uL (0-450); Eosinophils Percent Auto 1.9 % (2-4); Hematocrit 41.8 % (36-46); Lymphocytes Absolute Auto 800 /uL (1100-4500); Lymphocytes Percent Auto 12.6 % (25-40); Mean Corpuscular HGB Conc 33.5 % (30-36); Mean Corpuscular Hemoglobin 31.3 PG (26-34); Mean Corpuscular Volume 93.4 fL (80-100); Monocytes Absolute Auto 700 /uL (0-900); Monocytes Percent Auto 10.4 % (3-14); Neutrophils Absolute Auto 4700 /uL (1500-7000); Neutrophils Percent Auto 73.9 % (50-75); Platelet Count 248 X10^3/uL (150-400); Red Blood Cell Count 4.48 X10^6/uL (4.0-5.2); Red Cell Distribution Width 13.4 % (11.6-14.8); White Blood Cell Count 6.4 X10^3/uL (4.5-11.0)
[2020-11-09 10:00] VITALS: PULSE 63; O2SAT 99
--- NOTE | 2020-11-09 10:03 | ED_ITS ---
HPI - Chest Pain General Chief Complaint: Chest Pain Stated Complaint: chest pain since last night Time Seen by Provider: 11/09/20 09:44 History of Present Illness HPI narrative: 79-year-old female who is here for evaluation of right-sided chest discomfort. She states that it started yesterday evening. It continued all evening and she went to bed without last night and woke up with it again this morning. She states that moving her right arm can make the symptoms worse and also touching the area makes the symptoms worse. She has never had pain like this in the past. Has not tried anything for prior to arrival. No coughing. Describes it is a dull pain on the right side of her chest. Potentially some nausea but no vomiting. No change in bowel habits. No urinary symptoms. Related Data Home Medications Medication Instructions Recorded Confirmed Osteoben for calcium 4 tab PO DAILY 10/23/18 10/04/20 Previous Rx's Medication Instructions Recorded ondansetron 4 mg disintegrating 4 mg PO Q8H PRN #21 tab 03/02/19 tablet quinine sulfate 324 mg capsule 300 mg PO BEDTIME #100 cap 04/13/19 alendronate 70 mg tablet 70 mg PO QWEEK #12 tab 01/07/20 sumatriptan succinate 50 mg tablet See Rx Instructions PO .COMPLEX 07/07/20 #10 tab MDD 100mg zolpidem 5 mg tablet (Ambien) 5 mg PO BEDTIME PRN #30 tab 07/21/20 levothyroxine 112 mcg tablet 112 mcg PO DAILY #90 tab 10/19/20 Allergies Allergy/AdvReac Type Severity Reaction Status Date / Time No Known Drug Allergies Allergy Unverified 10/04/20 09:05 Review of Systems Constitutional Constitutional: Reports system reviewed and no additional complaints, except as documented ENT Ears, Nose, Mouth, and Throat: Reports system reviewed and no additional complaints, except as documented Cardiovascular Cardiovascular: Reports as per HPI Respiratory Respiratory: Reports as per HPI Gastrointestinal Gastrointestinal: Reports as per HPI Genitourinary Genitourinary: Reports system reviewed and no additional complaints, except as documented Musculoskeletal Musculoskeletal: Reports system reviewed and no additional complaints, except as documented Integumentary/Breasts Skin/Breast: Reports system reviewed and no additional complaints, except as documented Neurologic Neurologic: Reports system reviewed and no additional complaints, except as documented Endocrine Endocrine: Reports system reviewed and no additional complaints, except as documented Hematologic/Lymphatic On Anticoagulants: No Allergic/Immunologic Allergic/Immunologic: Reports system reviewed and no additional complaints, except as documented Patient History Medical History Fracture of scaphoid bone of left wrist Venous insufficiency of both lower extremities Surgical History (Updated 09/03/20 @ 16:05 by Jad Bender MD) History of appendectomy History of hysterectomy History of total left knee replacement Family History (Updated 10/04/20 @ 09:30 by Jad Bender MD) Sister Optic atrophy associated with retinal dystrophy Social History Smoking Status: Never smoker Smoking Status: Never smoker Substance Use Type: does not use Exam Initial Vital Signs Initial Vital Signs: Vital Signs Pulse Rate 79 11/09/20 09:35 Pulse Oximetry 88 L 11/09/20 09:35 Const General: cooperative and healthy appearing HENMT Head: normal to inspection and normocephalic Eyes General: appearance normal, both eyes and all related structures Chest Chest: No crepitus Resp Effort & Inspection: normal respiratory effort Auscultation: clear to auscultation bilaterally Cardio Rate: regular rate Rhythm: regular rhythm GI Inspection: normal to inspection Skin General: no rashes or lesions noted Neuro General: patient alert, patient awake, patient oriented x3 and moves all extremities Extrem General: normal to inspection and capillary refill normal Psych Appearance: grossly normal and well kempt Course Orders Ordered: ED Orders 11/09/20 09:37 XR chest 1V Stat EKG-12 Lead Stat 11/09/20 09:40 Complete Blood Count AUTO DIFF Stat Comprehensive Metabolic Panel Stat Lipase Stat Troponin & CK Cardiac Panel Stat Vital Signs Vital signs: Vital Signs - 8 hr 11/09/20 09:35 11/09/20 09:36 11/09/20 09:39 Temperature 98.4 F Pulse Rate 79 78 72 Respiratory Rate 16 Blood Pressure 125/60 125/72 Pulse Oximetry 88 L 97 98 11/09/20 10:00 Temperature Pulse Rate 63 Respiratory Rate Blood Pressure Pulse Oximetry 99 MDM - Chest Pain Lab Data Result diagrams: 11/09/20 09:40 11/09/20 09:40 Labs: Lab Results 11/09/20 11/09/20 Range/Units 09:40 09:40 WBC 6.4 (4.5-11.0) X10^3/uL RBC 4.48 (4.0-5.2) X10^6/uL Hgb 14.0 (12.0-16.0) g/dL Hct 41.8 (36-46) % MCV 93.4 (80-100) fL MCH 31.3 (26-34) PG MCHC 33.5 (30-36) % RDW 13.4 (11.6-14.8) % Plt Count 248 (150-400) X10^3/uL Neut % (Auto) 73.9 (50-75) % Lymph % (Auto) 12.6 L (25-40) % [place] % (Auto) 10.4 (3-14) % Eos % (Auto) 1.9 L (2-4) % Baso % (Auto) 1.2 (0-2) % Neut # (Auto) 4700 (6894-9070) /uL Lymph # (Auto) 800 L (6465-9478) /uL [place] # (Auto) 700 (0-900) /uL Eos # (Auto) 100 (0-450) /uL Baso # (Auto) 100 (0-100) /uL Sodium 140 (137-145) mmol/L Potassium 4.0 (3.4-5.1) mmol/L Chloride 105 (98-107) mmol/L Carbon Dioxide 30 (22-32) mmol/L BUN 12 (7-17) mg/dL Creatinine 0.79 (0.52-1.04) mg/dL Estimated GFR > 60.0 (>60) mL/min BUN/Creatinine Ratio 15.2 (6-22) Glucose 92 (80-110) mg/dL Calcium 9.8 (8.4-10.2) mg/dL Total Bilirubin 1.0 (0.2-1.3) mg/dL AST 39 H (14-36) IU/L ALT 21 (<35) IU/L Alkaline Phosphatase 52 (38-126) U/L Total Creatine Kinase 54 (30-135) U/L CK-MB (CK-2) TNP CK-MB (CK-2) Rel Index TNP Troponin I < 0.012 (0.01-0.034) ng/mL Total Protein 7.0 (6.3-8.2) g/dL Albumin 4.4 (3.5-5.0) g/dL Globulin 2.6 (1.7-4.1) g/dL Albumin/Globulin Ratio 1.7 (1.0-2.8) Lipase 148 (23-300) U/L Imaging Data Chest x-ray: Radiologist's Impression: [address] [id number] ReportSigned Patient: Britney Benton KMR#: [id number]: 3Acct:[id number]/Sex: 79 / FDate of Service: 11/09/20Loc: EDAccession Number: [id number] Procedure: XR chest 1V Ordering Provider: Michael Ivy D.O. PROCEDURE: XR CHEST 1V INDICATIONS: chest pain TECHNIQUE: One view of the chest was acquired. COMPARISON: [facility], , XR CHEST 2V, 08/31/2020, 10:06. FINDINGS: Surgical changes and devices: None. Lungs and pleura: Lungs are clear. No pleural effusions or pneumothorax. Lungs are hyperinflated suggestive of COPD. Chronic interstitial changes are present. Mediastinum: Mediastinal contours appear normal. Heart size is normal. Bones and chest wall: No suspicious bony lesions. Overlying soft tissues appear unremarkable. IMPRESSION: No acute pulmonary process. Dictated by: Jaqui Marroquin M.D. on 11/09/2020 at 10:17 Approved by: Jaqui Marroquin M.D. on 11/09/2020 at 10:17 ECG Data Attestation: I personally reviewed and interpreted this ECG as follows: Interpretation: Sinus rhythm Ventricular rate is 62 Normal axis Normal QRS Normal QTC No ST T wave changes MDM Narrative Medical decision making narrative: Patient does have right-sided discomfort that is worse with palpation and movement of her arm. I have low suspicion for ACS. Her troponin is negative greater than 6 hours after constant symptoms. Her chest x-ray does not show any signs of pneumonia. She has no changes in the ski [place] over the area. No indication for antibiotics. We will hold on further workup for now. Patient was given strict return precautions and follow-up instructions. She expressed understanding and agreement. Discharge Plan Departure Patient Disposition: Home Clinical Impression: Atypical chest pain Instructions: DI for Atypical Chest Pain Activity Restrictions/Additional Instructions: Your workup here in the emergency department is very reassuring. I have low suspicion for heart attack. There is no signs of any infectious process. Recommend that you continue all of your medications as directed. Contact your primary doctor for a follow-up. Return to the emergency department for any new or worsening symptoms Prescriptions: No Action quinine sulfate 324 mg capsule 300 mg PO BEDTIME Qty: 100 RF: 0 alendronate 70 mg tablet 70 mg PO QWEEK Qty: 12 RF: 3 sumatriptan succinate 50 mg tablet See Rx Instructions PO .COMPLEX MDD 100mg Qty: 10 RF: 5 zolpidem [Ambien] 5 mg tablet 5 mg PO BEDTIME PRN (Reason: sleep) Qty: 30 RF: 5 levothyroxine 112 mcg tablet 112 mcg PO DAILY Qty: 90 RF: 3 ondansetron 4 mg tablet,disintegrating 4 mg PO Q8H PRN (Reason: nausea and vomiting) Qty: 21 RF: 0 Osteoben for calcium 4 tab PO DAILY RF: 0 Referrals: Jad Bender MD [Primary Care Provider] -
[2020-11-09 10:05] LABS: Alanine Aminotransferase 21 IU/L (<35); Albumin 4.4 g/dL (3.5-5.0); Albumin Globulin Ratio 1.7 (1.0-2.8); Alkaline Phosphatase 52 U/L (38-126); Aspartate Aminotransferase 39 IU/L (14-36); BUN Creatinine Ratio 15.2 (6-22); Blood Urea Nitrogen 12 mg/dL (7-17); Calcium 9.8 mg/dL (8.4-10.2); Carbon Dioxide 30 mmol/L (22-32); Chloride 105 mmol/L (98-107); Creatine Kinase 54 U/L (30-135); Estimated Glomerular Filt Rate > 60.0 mL/min (>60); Globulin 2.6 g/dL (1.7-4.1); Glucose 92 mg/dL (80-110); HEMOLYSIS < 15 (0-50); Lipase 148 U/L (23-300); Sodium 140 mmol/L (137-145)
[2020-11-09 10:17] LABS: Troponin I < 0.012 ng/mL (0.01-0.034)
[2020-11-09 10:50] VITALS: BP 142/63; PULSE 57; RESP 16; O2SAT 97
== END 2020-11-09 10:53 | disposition home or self-care (01) ==
PROVIDERS: Emergency Provider Emergency Medicine; PCP Student in an Organized Health Care Education/Training Program
DX: R07.89 Other chest pain (principal); Z20.822 Contact with and (suspected) exposure to COVID-19
CPT/HCPCS: 36415; 71045; 80053; 82550; 83690; 84484; 85025; 87635; 93005; 99284

== ENCOUNTER → 2020-12-01 08:53 | Outpatient (CLI) | payer MEDICARE, OTHER, SELFPAY ==
[2020-12-01 10:33] LABS: TSH w/ Reflex to FT4 3.54 uIU/mL (0.47-4.68)
== END ==
PROVIDERS: PCP Student in an Organized Health Care Education/Training Program; Referring Provider Student in an Organized Health Care Education/Training Program; Visit Provider Student in an Organized Health Care Education/Training Program
DX: M81.0 Age-related osteoporosis without current pathological fracture (principal); E03.9 Hypothyroidism, unspecified; Z78.0 Asymptomatic menopausal state; Z90.722 Acquired absence of ovaries, bilateral
CPT/HCPCS: 36415; 77080; 84443

== ENCOUNTER → 2021-03-15 11:12 | Outpatient (CLI) | payer MEDICARE, OTHER, SELFPAY ==
--- NOTE | 2021-03-15 | DI.MG.S_ITS ---
BILATERAL DIGITAL SCREENING MAMMOGRAM 3D/2D WITH CAD: 03/15/2021 CLINICAL: Routine screening. Family history of breast cancer. Comparison is made to exams dated: 03/13/2020 mammogram, 03/11/2019 mammogram, and 03/03/2017 mammogram - [facility]. There are scattered fibroglandular elements in both breasts. Current study was also evaluated with a Computer Aided Detection (CAD) system. There is a biopsy clip in the right breast. No significant masses, calcifications, or other findings are seen in either breast. There has been no significant interval change. IMPRESSION: NEGATIVE There is no mammographic evidence of malignancy. A 1 year screening mammogram is recommended. This exam was interpreted at Station ID: [id number]. NOTE: For mammograms, a report in lay terms will be sent to the patient. Approximately 15% of breast malignancies will not be visualized mammographically. In the management of a palpable breast mass, a negative mammogram must not discourage biopsy of a clinically suspicious lesion. Electronically Signed By: Caity coronado/david:03/15/2021 12:19:29 letter sent: Normal Exam ACR BI-RADS Category 1: Negative 3341F
== END ==
PROVIDERS: PCP Student in an Organized Health Care Education/Training Program; Referring Provider Student in an Organized Health Care Education/Training Program; Visit Provider Student in an Organized Health Care Education/Training Program
DX: Z12.31 Encounter for screening mammogram for malignant neoplasm of breast (principal); Z80.3 Family history of malignant neoplasm of breast
CPT/HCPCS: 77063; 77067

== ENCOUNTER → 2021-10-26 11:10 | Outpatient (CLI) | payer MEDICARE, OTHER, SELFPAY ==
--- NOTE | 2021-10-26 11:11 | DI.RAD.S_ITS ---
PROCEDURE: FL BARIUM SWALLOW W SPEECH INDICATIONS: Aspiration COMPARISON: None. TECHNIQUE: Examination was conducted in conjunction with speech pathology per standard protocol. In the lateral projection, filming was performed of the patient swallowing. AP projection filming may also be performed with patient swallowing. COMPARISON: FINDINGS: Function: The oral preparatory phase appears normal, with proper containment. The subsequent oral propulsive phase, pharyngeal phase, and esophageal phase of swallowing also appear normal with all proffered substances. No laryngotracheal penetration or aspiration. No pathologic vallecular pooling. Morphology: No cricopharyngeal bar is identified. No cervical esophageal webs. No Zenker's diverticulum. No strictures. There is mild narrowing of the gastroesophageal junction and dilatation of the distal esophagus. IMPRESSION: 1. No evidence of laryngeal penetration, or aspiration. 2. Distal esophageal narrowing. Initial further assessment with endoscopy is recommended. Dictated by: Trevor Redman M.D. on 10/26/2021 at 14:02 Transcribed by: RADHA on 10/26/2021 at 14:02 Approved by: Trevor Redman M.D. on 10/26/2021 at 16:31
--- NOTE | 2021-10-26 12:35 | ST.SWALLOW ---
Visit Care Team Role Provider Type Jad Bender MD Attending Provider Physician Primary Care Provider Referring Provider Specialty: Internal Medicine Address: [address] [place] [address], [address], [address] Email: [email or web address] Modified Barium Swallow Study [employer] Modified Barium Swallow Study Start: 10/26/21 12:12 Freq: Status: Active Protocol: Document 10/26/21 12:12 ZS (Rec: 10/26/21 12:34 ZS [id number]) Modified Barium Swallow Study Total Time Visit Start Time 11:30 Visit Stop Time 12:00 Total Visit Minutes 30 Visit Information Visit Number Initial Evaluation Setting Setting Outpatient Care Patient Information Identification Type Name Patient History Britney is a 80-year-old female with sudden weight loss of 20lbs. and intermittent hoarseness and scratchiness in her throat. She reported the hoarseness and scratchiness are random and occur at different times during the day . Britney stated she has tried diet modifications based on her PCP's recommendation and has not experienced additional weight loss since, though has not put any weight back on either. Subjective Observations Provided education regarding process and procedure and pt expressed understanding and agreed to participate in evaluation. Patient Positioning Position View Lat-A/P Imaging Lateral View Textures Administered Trials Presented Thin Liquid via Cup,[place] Liquid via Cup,Regular Textures Oral Phase Source: MBSIMP (TM) (C) Bolus Specific Scoring Grid Lip Closure No Impairment (WNL) Tongue Control During Bolus Hold No Impairment (WNL) Bolus Prep/Mastication No Impairment (WNL) Bolus Transport/Lingual Motion No Impairment (WNL) A/P Lingual Propulsion Delay No Oral Residue WFL Residue Clearing No Impairment (WNL) Nasal Regurgitation No Additional Oral Phase Observations No anterior loss of bolus, timely and efficient mastication and a/p propulsion of bolus. Mild-moderate residue observed, which pt cleared with additional swallow. Pharyngeal Phase Source: MBSIMP (TM) (C) Bolus Specific Scoring Grid Delayed Initiation of Pharyngeal Swallow Yes: Head of bolus in valleculae Soft Palate Elevation No Impairment (WNL) Tongue Base Strength/Range of Motion No Impairment (WNL) Residue Along the Tongue Base No Laryngeal Elevation No Impairment (WNL) Anterior Hyoid Movement Minimal Impairment Epiglottic Range of Motion No Impairment (WNL) Clearance of Vallecular Residue WFL Laryngeal Vestibular Closure No Impairment (WNL) Pharyngeal Stripping Wave Minimal Impairment Pharyngeal Contraction No Impairment (WNL) Posterior Pharyngeal Wall Residue No Upper Esophageal Sphincter Opening WFL Residue in the Pyriform Sinuses Yes: Minimal to none, WFL Clearance of Residue in the Pyriform No Impairment (WNL) Sinuses Pharyngoesophageal Backflow Observed No Additional Pharyngeal Phase Observations Pharyngeal swallow was initiated when head of the bolus was in the valleculae. Once swallow was initated, hyolaryngeal excursion was mildly reduced, but did not appear to impact epiglottic inversion or laryngeal vestibular closure, as these were WNL. Following swallow, mild residue was observed in pyriforms and valleculae, which pt cleared with a spontaneous second swallow. No aspiration or penetration observed. A/P View Textures Administered Trials Presented Thin Liquid via Cup,Barium Tablet A/P View Observations Pharyngeal Contraction No Impairment (WNL) Esophageal Function Slowed Clearing Esophageal Clearance Upright Position Minimal Impairment Additional Observations Rapid movement of bolus through esophagus with slowed, halting movements of bolus through gastroesophageal sphincter. Bolus cleared within 1-2 minutes and esophagus was clear at the end of the study. Clinical Impressions Findings The pt presents with swallow function WNL. Mild to mild- moderate residue observed in pyriforms, valleculae, and oral cavity following swallow, which pt cleared with a spontaneous second swallow. No instances of aspiration or penetration observed across all trials. Reduced hyolaryngeal excursion, but this did not appear to impact laryngeal vestibular closure or epiglottic inversion, as these were WNL. Patient Appropriate for Therapy No Recommendations Diet Liquids Order Thin Diet Order Regular Medication Recommendation As Tolerated
== END ==
PROVIDERS: PCP Student in an Organized Health Care Education/Training Program; Referring Provider Student in an Organized Health Care Education/Training Program; Visit Provider Student in an Organized Health Care Education/Training Program
DX: T17.908A Unspecified foreign body in respiratory tract, part unspecified causing other injury, initial encounter (principal); K22.2 Esophageal obstruction
CPT/HCPCS: 74230; 92611

== ENCOUNTER → 2021-12-04 12:07 | Outpatient (CLI) | payer MEDICARE, OTHER, SELFPAY ==
[2021-12-04 14:31] LABS: TSH w/ Reflex to FT4 0.02 uIU/mL (0.47-4.68)
[2021-12-04 14:57] LABS: Free T4, Direct Thyroxine 1.82 ng/dL (0.78-2.19)
== END ==
PROVIDERS: PCP Student in an Organized Health Care Education/Training Program; Referring Provider Student in an Organized Health Care Education/Training Program; Visit Provider Student in an Organized Health Care Education/Training Program
DX: E03.9 Hypothyroidism, unspecified (principal)
CPT/HCPCS: 36415; 84439; 84443

== ENCOUNTER → 2021-12-24 10:09 | Outpatient (CLI) | payer MEDICARE, OTHER, SELFPAY | PROVIDERS: PCP Student in an Organized Health Care Education/Training Program; Referring Provider Student in an Organized Health Care Education/Training Program; Visit Provider Student in an Organized Health Care Education/Training Program | DX: Z13.820 Encounter for screening for osteoporosis (principal); M81.0 Age-related osteoporosis without current pathological fracture; Z78.0 Asymptomatic menopausal state; Z90.710 Acquired absence of both cervix and uterus | CPT/HCPCS: 77080 ==

== ENCOUNTER → 2022-01-21 08:45 | Outpatient (CLI) | payer MEDICARE, OTHER, SELFPAY ==
[2022-01-21 11:25] LABS: Free T3, Triiodothyronine Free 3.29 pg/mL (2.77-5.27); Free T4, Direct Thyroxine 1.68 ng/dL (0.78-2.19)
[2022-01-21 11:38] LABS: Thyroid Stimulating Hormone 0.076 uIU/mL (0.47-4.68)
== END ==
PROVIDERS: PCP Student in an Organized Health Care Education/Training Program; Referring Provider Student in an Organized Health Care Education/Training Program; Visit Provider Student in an Organized Health Care Education/Training Program
DX: E03.9 Hypothyroidism, unspecified (principal)
CPT/HCPCS: 36415; 84439; 84443; 84481

== ENCOUNTER → 2022-03-04 10:12 | Outpatient (CLI) | payer MEDICARE, OTHER, SELFPAY ==
[2022-03-04 17:32] LABS: TSH w/ Reflex to FT4 0.43 uIU/mL (0.47-4.68)
[2022-03-05 17:28] LABS: Free T4, Direct Thyroxine 1.51 ng/dL (0.78-2.19)
== END ==
PROVIDERS: PCP Student in an Organized Health Care Education/Training Program; Referring Provider Student in an Organized Health Care Education/Training Program; Visit Provider Student in an Organized Health Care Education/Training Program
DX: E03.9 Hypothyroidism, unspecified (principal)
CPT/HCPCS: 36415; 84439; 84443

== ENCOUNTER → 2022-03-18 11:27 | Outpatient (CLI) | payer MEDICARE, OTHER, SELFPAY ==
--- NOTE | 2022-03-18 | DI.MG.S_ITS ---
BILATERAL DIGITAL SCREENING MAMMOGRAM 3D/2D WITH CAD: 03/18/2022 CLINICAL: Routine screening. Family history of breast cancer. Comparison is made to exams dated: 03/15/2021 mammogram, 03/11/2019 mammogram, 03/13/2020 mammogram, and 03/03/2017 mammogram - [facility]. There are scattered areas of fibroglandular density in both breasts (category b / 25%-50% glandular tissue). Current study was also evaluated with a Computer Aided Detection (CAD) system. There is a biopsy clip in the right breast. No significant masses, calcifications, or other findings are seen in either breast. There has been no significant interval change. IMPRESSION: NEGATIVE There is no mammographic evidence of malignancy. A 1 year screening mammogram is recommended. Based on the Tyrer Cuzick model (a risk assessment model) the patient's lifetime risk is 4.1% and her 10 year risk is 0.0%. According to the ACR, ACS, and NCCN guidelines, an annual breast MRI exam along with mammogram is recommended if the patient's lifetime risk is 20% or greater. This exam was interpreted at Station ID: [id number]. NOTE: For mammograms, a report in lay terms will be sent to the patient. Approximately 15% of breast malignancies will not be visualized mammographically. In the management of a palpable breast mass, a negative mammogram must not discourage biopsy of a clinically suspicious lesion. Electronically Signed By: Federico mack/david:03/18/2022 13:07:01 letter sent: Normal Exam ACR BI-RADS Category 1: Negative 3341F
== END ==
PROVIDERS: PCP Student in an Organized Health Care Education/Training Program; Referring Provider Student in an Organized Health Care Education/Training Program; Visit Provider Student in an Organized Health Care Education/Training Program
DX: Z12.31 Encounter for screening mammogram for malignant neoplasm of breast (principal); Z80.3 Family history of malignant neoplasm of breast
CPT/HCPCS: 77063; 77067

== ENCOUNTER → 2022-05-06 08:54 | Outpatient (CLI) | payer MEDICARE, OTHER, SELFPAY ==
[2022-05-06 11:02] LABS: Appearance Urine UA CLEAR; Bilirubin Urine UA NEGATIVE (NEGATIVE); Color Urine UA YELLOW; Glucose Urine UA NEGATIVE (Negative); Ketones Urine UA NEGATIVE (NEGATIVE); Leukocyte Esterase Urine UA NEGATIVE (NEGATIVE); Nitrite Urine UA NEGATIVE (Negative); Occult Blood Urine UA NEGATIVE (Negative); Protein Urine UA NEGATIVE (Negative); Specific Gravity Urine UA <=1.005 (1.000-1.035); Urobilinogen Urine UA 0.2 E.U./dL (0.2)
[2022-05-06 12:02] LABS: Bacteria Urine Few (2-10); Culture Indicated Urine Cult Not Indicated; RBC Urine 0-1/HPF (0-5/HPF); Squamous Epithelial Cell Urine 0-1 /HPF (0-5/HPF); WBC Urine 0-1/HPF (0-5/HPF)
== END ==
PROVIDERS: PCP Student in an Organized Health Care Education/Training Program; Referring Provider Student in an Organized Health Care Education/Training Program; Visit Provider Student in an Organized Health Care Education/Training Program
DX: R32 Unspecified urinary incontinence (principal)
CPT/HCPCS: 81001

== ENCOUNTER → 2022-05-16 07:48 | Outpatient (CLI) | payer MEDICARE, OTHER, SELFPAY ==
[2022-05-16 08:15] LABS: Add Manual Diff / Slide Review NO; Basophils Absolute Auto 0 /uL (0-100); Eosinophils Absolute Auto 200 /uL (0-450); Eosinophils Percent Auto 3.6 % (2-4); Hematocrit 43.7 % (36-46); Hemoglobin 14.7 g/dL (12.0-16.0); Lymphocytes Absolute Auto 700 /uL (1100-4500); Lymphocytes Percent Auto 15.4 % (25-40); Mean Corpuscular HGB Conc 33.5 % (30-36); Mean Corpuscular Hemoglobin 30.4 PG (26-34); Mean Corpuscular Volume 90.8 fL (80-100); Monocytes Absolute Auto 400 /uL (0-900); Monocytes Percent Auto 8.8 % (3-14); Neutrophils Absolute Auto 3400 /uL (1500-7000); Neutrophils Percent Auto 71.2 % (50-75); Platelet Count 251 X10^3/uL (150-400); Red Blood Cell Count 4.82 X10^6/uL (4.0-5.2); Red Cell Distribution Width 13.4 % (11.6-14.8); White Blood Cell Count 4.8 X10^3/uL (4.5-11.0)
[2022-05-16 08:49] LABS: Alanine Aminotransferase 25 IU/L (<35); Albumin 4.7 g/dL (3.5-5.0); Albumin Globulin Ratio 1.6 (1.0-2.8); Alkaline Phosphatase 57 U/L (38-126); Aspartate Aminotransferase 37 IU/L (14-36); BUN Creatinine Ratio 20.5 (6-22); Bilirubin Total 1.5 mg/dL (0.2-1.3); Blood Urea Nitrogen 15 mg/dL (7-17); Calcium 9.5 mg/dL (8.4-10.2); Carbon Dioxide 31 mmol/L (22-32); Chloride 102 mmol/L (98-107); Estimated Glomerular Filt Rate > 60 mL/min (>60); Globulin 2.9 g/dL (1.7-4.1); Glucose 80 mg/dL (80-110); HEMOLYSIS < 15 (0-50); Potassium 3.9 mmol/L (3.4-5.1); Sodium 141 mmol/L (137-145); Total Protein 7.6 g/dL (6.3-8.2); Uric Acid 3.5 mg/dL (2.5-6.2)
[2022-05-16 08:54] LABS: High Sensitivity CRP - Cardiac 1.1 mg/L (1.0-3.0)
[2022-05-16 08:59] LABS: Erythrocyte Sedimentation Rate 3 MM/HR (0-20)
[2022-05-16 09:01] LABS: Rheumatoid Factor < 8.6 IU/mL (<12.0)
[2022-05-16 09:29] LABS: Thyroid Stimulating Hormone 1.66 uIU/mL (0.47-4.68)
[2022-05-18 15:36] LABS: ANA Screen, IFA Negative (.)
[2022-05-18 18:10] LABS: SS A Ro Sjogrens Antibody < 0.2 AI (0.0-0.9); SS B La Sjogrens Antibody < 0.2 AI (0.0-0.9)
[2022-05-24 20:37] LABS: HLA B27 Negative (.)
== END ==
PROVIDERS: PCP Student in an Organized Health Care Education/Training Program; Referring Provider Ophthalmology; Visit Provider Ophthalmology
DX: H44.112 Panuveitis, left eye (principal); H15.122 Nodular episcleritis, left eye
CPT/HCPCS: 36415; 80053; 81374; 84443; 84550; 85025; 85651; 86038; 86140; 86235; 86430

== ENCOUNTER → 2022-06-06 07:26 | Outpatient (CLI) | payer MEDICARE, OTHER, SELFPAY ==
[2022-06-06 09:10] LABS: Alanine Aminotransferase 24 IU/L (<35); Albumin 4.3 g/dL (3.5-5.0); Alkaline Phosphatase 56 U/L (38-126); Aspartate Aminotransferase 36 IU/L (14-36); Bilirubin Total 1.5 mg/dL (0.2-1.3); Bilirubin Unconjugated 1.2 mg/dL (0.0-1.1); Globulin 2.2 g/dL (1.7-4.1); HEMOLYSIS < 15 (0-50); Total Protein 6.5 g/dL (6.3-8.2)
== END ==
PROVIDERS: PCP Student in an Organized Health Care Education/Training Program; Referring Provider Student in an Organized Health Care Education/Training Program; Visit Provider Student in an Organized Health Care Education/Training Program
DX: R79.89 Other specified abnormal findings of blood chemistry (principal)
CPT/HCPCS: 36415; 80076

== ENCOUNTER → 2022-08-22 13:18 | Outpatient (CLI) | payer MEDICARE, OTHER, SELFPAY ==
--- NOTE | 2022-08-22 13:21 | DI.RAD.S_ITS ---
PROCEDURE: XR LUMBAR SPINE MIN 4V INDICATIONS: BACK PAIN TECHNIQUE: 5 views of the lumbar spine were acquired, including bilateral oblique views. COMPARISON: [facility], , XR LUMBAR SPINE MIN 4V, 09/10/2017, 11:00. FINDINGS: Bones: 5 nonrib-bearing vertebrae are present. No lumbar vertebral body compression fractures identified. 4 millimeters anterolisthesis L4 on L5. 4 millimeters retrolisthesis L1 on L2. Moderate-severe multilevel degenerative changes with disc height loss, endplate spurring, and facet arthropathy. Soft tissues: Overlying bowel gas pattern is normal. No suspicious soft tissue calcifications. Oblique images: No pars defects. Suspect at least mild multilevel bony foraminal narrowing. IMPRESSION: Multilevel degenerative changes of the lumbar spine. Dictated by: Saravanan Plasencia M.D. on 08/22/2022 at 14:04 Approved by: Saravanan Plasencia M.D. on 08/22/2022 at 14:11
--- NOTE | 2022-08-22 13:21 | DI.RAD.S_ITS ---
PROCEDURE: XR HIP W PEL IF DONE AREN MIN 4V INDICATIONS: RIGHT HIP PAIN TECHNIQUE: AP pelvis with lateral view(s) of the right and left hip(s). COMPARISON: None. FINDINGS: Bones: No fractures or dislocations. Pelvic ring appears intact. No suspicious bony lesions. Mild-moderate joint space narrowing and spurring of both hips, left side worse than right. Soft tissues: The visualized bowel gas pattern is normal. No suspicious soft tissue calcifications. IMPRESSION: No acute osseous abnormality. 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 If symptoms persist, follow-up radiographs and/or CT or MRI may be helpful for further evaluation. Dictated by: Saravanan Plasencia M.D. on 08/22/2022 at 14:01 Approved by: Saravanan Plasencia M.D. on 08/22/2022 at 14:04
== END ==
PROVIDERS: PCP Student in an Organized Health Care Education/Training Program; Referring Provider Physical Medicine & Rehabilitation; Visit Provider Physical Medicine & Rehabilitation
DX: M19.90 Unspecified osteoarthritis, unspecified site (principal)
CPT/HCPCS: 72110; 73522

== ENCOUNTER 2022-09-10 17:46 | Emergency (ER) | payer MEDICARE, OTHER, SELFPAY ==
[2022-09-10 17:50] VITALS: BP 148/65; PULSE 67; RESP 14; TEMP 37.2; O2SAT 100; BMI 19.8
--- NOTE | 2022-09-10 17:58 | DI.RAD.S_ITS ---
PROCEDURE: XR KNEE RT 3V INDICATIONS: fall TECHNIQUE: 3 views of the knee were acquired. COMPARISON: None. FINDINGS: Bones: There is a minimally displaced transverse fracture through mid portion of patella with up to 6 mm diastasis at fracture site. No other fracture or dislocation. Prior lateral patellofemoral compartment arthroplasty is seen. No gross hardware loosening or failure. No suspicious bony lesions. Soft tissues: Marked soft tissue swelling and edema along anterior aspect of patella is seen. Small to moderate suprapatellar joint effusion is seen. No suspicious soft tissue calcifications. IMPRESSION: Acute slightly displaced mid patellar fracture with overlying soft tissue swelling and small joint effusion as above. Dictated by: Juan M Motta M.D. on 09/10/2022 at 18:42 Approved by: Juan M Motta M.D. on 09/10/2022 at 18:43
--- NOTE | 2022-09-10 17:58 | DI.RAD.S_ITS ---
PROCEDURE: XR KNEE LT 3V INDICATIONS: fall TECHNIQUE: 3 views of the knee were acquired. COMPARISON: None. FINDINGS: Bones: Patient is status post prior left total knee arthroplasty. Left knee alignment is anatomic. No acute fracture or dislocation. No gross hardware loosening or failure. No suspicious bony lesions. Soft tissues: No joint effusion. No suspicious soft tissue calcifications. IMPRESSION: No acute left knee fracture or dislocation. Prior left total knee arthroplasty. Anatomic left knee alignment. No evidence of hardware loosening or failure. Dictated by: Juan M Motta M.D. on 09/10/2022 at 18:42 Approved by: Juan M Motta M.D. on 09/10/2022 at 18:42
--- NOTE | 2022-09-10 19:19 | ED.LOWEXIN ---
HPI - Extremity Injury (Lower) General Chief Complaint: Extremity Injury, Lower Stated Complaint: GLF hit both knees, Rknee dificult to move Time Seen by Provider: 09/10/22 18:01 Source: patient Mode of arrival: Wheelchair History of Present Illness HPI Narrative: 81-year-old female who is here for evaluation of bilateral knee pain with right being greater than left. She states that she tripped and fell and landed on both of her knees. She did scrape up her hands. She reports pain to both of her knees but more specifically pain to her right knee. It hurts when she bends her knee. Has had difficult time walking. No other injuries from the event. Did not hit her head. No loss of consciousness. She went to the walk-in clinic and they told her to come to the emergency department for x-rays. Related Data Home Medications Medication Instructions Recorded Confirmed Osteoben for calcium 4 tab PO DAILY 10/23/18 08/23/22 vitamin B complex (B 1 tab PO DAILY 04/24/21 08/23/22 Complex-Vitamin B12 tablet) doxycycline hyclate 100 mg capsule 100 mg PO DAILY 08/23/22 08/23/22 [id number] 3.5 1 drp EYE-BOTH QID 08/23/22 08/23/22 mg/mL-10,000 unit/mL-0.1% eye drops Previous Rx's Medication Instructions Recorded sumatriptan succinate 50 mg tablet See Rx Instructions PO .COMPLEX 07/07/20 #10 tabs alendronate 70 mg tablet 70 mg PO QWEEK #12 tabs 11/08/21 levothyroxine 88 mcg tablet 88 mcg PO DAILY #90 tabs 01/21/22 cyclobenzaprine 5 mg tablet 5 mg PO BID PRN muscle spasm #60 08/23/22 tabs hydrocodone 5 mg-acetaminophen 325 1 tab PO Q4-6H PRN pain #10 tabs 09/10/22 mg tablet Allergies Allergy/AdvReac Type Severity Reaction Status Date / Time No Known Drug Allergies Allergy Verified 09/10/22 17:58 Review of Systems Constitutional Constitutional: Reports system reviewed and no additional complaints, except as documented Musculoskeletal Musculoskeletal: Reports system reviewed and no additional complaints, except as documented Integumentary/Breasts Skin/Breast: Reports system reviewed and no additional complaints, except as documented Neurologic Neurologic: Reports system reviewed and no additional complaints, except as documented Hematologic/Lymphatic On Anticoagulants: No Patient History Medical History Fracture of scaphoid bone of left wrist Venous insufficiency of both lower extremities Surgical History History of appendectomy History of hysterectomy History of total left knee replacement Family History Sister Optic atrophy associated with retinal dystrophy Social History Smoking Status: Never smoker Smoking Status: Never smoker Substance Use Type: does not use Exam Initial Vital Signs Initial Vital Signs: Vital Signs Temperature 98.9 F 09/10/22 17:50 Pulse Rate 67 09/10/22 17:50 Respiratory Rate 14 09/10/22 17:50 Blood Pressure 148/65 H 09/10/22 17:50 Pulse Oximetry 100 09/10/22 17:50 Oxygen Delivery Method Room Air 09/10/22 17:50 Const General: cooperative, comfortable and No ill appearing [facility] Head: normal to inspection and normocephalic Skin Other: Superficial abrasions to bilateral knees Neuro General: patient alert, patient awake and moves all extremities Extrem Other: Patient can flex and extend at the left knee. Some discomfort anteriorly with palpation. Patient has discomfort with flexing the right knee with tenderness over the right patella. Her upper extremities are unremarkable. Procedures Orthopedic Splinting/Casting Injury #1: Side: right Lower Extremity Injury Location: knee Lower Extremity Immobilizer: knee immobilizer Post splinting neuro exam: intact Post splinting vascular exam: intact Placed by: Nursing Course Orders Ordered: ED Orders 09/10/22 17:58 XR knee LT 3V Stat XR knee RT 3V Stat Vital Signs Vital signs: Vital Signs - 8 hr 09/10/22 17:50 09/10/22 19:38 Temperature 98.9 F Pulse Rate 67 67 Respiratory Rate 14 Blood Pressure 148/65 H 142/63 H Pulse Oximetry 100 96 Oxygen Delivery Method Room Air Room Air MDM - Extremity Injury (Lower) Imaging Data Extremity x-ray #1: Radiologist's Impression: PROCEDURE:? XR KNEE LT 3V ? INDICATIONS:? fall ? TECHNIQUE:? 3 views of the knee were acquired.? ? COMPARISON:? None. ? FINDINGS:? ? Bones:? Patient is status post prior left total knee arthroplasty.? Left knee alignment is anatomic.? No acute fracture or dislocation.? No gross hardware loosening or failure.? No suspicious bony lesions.? ? Soft tissues:? No joint effusion.? No suspicious soft tissue calcifications.? ? ? IMPRESSION:? No acute left knee fracture or dislocation.? Prior left total knee arthroplasty.? Anatomic left knee alignment.? No evidence of hardware loosening or failure. Extremity x-ray #2: Radiologist's Impression: PROCEDURE:? XR KNEE RT 3V ? INDICATIONS:? fall ? TECHNIQUE:? 3 views of the knee were acquired.? ? COMPARISON:? None. ? FINDINGS:? ? Bones:? There is a minimally displaced transverse fracture through mid portion of patella with up to 6 mm diastasis at fracture site.? No other fracture or dislocation.? Prior lateral patellofemoral compartment arthroplasty is seen.? No gross hardware loosening or failure.? No suspicious bony lesions.? ? Soft tissues:? Marked soft tissue swelling and edema along anterior aspect of patella is seen.? Small to moderate suprapatellar joint effusion is seen.? No suspicious soft tissue calcifications.? ? ? IMPRESSION:? Acute slightly displaced mid patellar fracture with overlying soft tissue swelling and small joint effusion as above. [facility] Narrative Medical decision making narrative: Patient does have a right patella fracture noted on the x-rays. This does correspond to the discomfort that she is having. There has been no other injuries from the event. The abrasions need no specific intervention here in the emergency department. This was a mechanical fall. She was placed in a knee immobilizer. Was given instructions for follow-up with Orthopedic surgery. Patient was given care instructions and return precautions. She expressed understanding and agreement. Discharge Plan Departure Patient Disposition: Home Clinical Impression: Fractured patella Instructions: DI for Patella Fracture, How to Use a Knee Immobilizer Activity Restrictions/Additional Instructions: You can take Tylenol/acetaminophen every 4-6 hours and or a nonsteroidal anti-inflammatory such as Motrin or Naprosyn or Aleve every 6-8 hours as needed for discomfort. You can put pressure and walk on your right leg as tolerated with the knee brace. Recommend that you contact your orthopedic provider for a follow-up. Return to the emergency department for new or worsening symptoms. You can take the knee brace off when you were sitting on the couch or when you take a shower or sleeping at night if needed. Prescriptions: New hydrocodone-acetaminophen 5-325 mg tablet 1 tab PO Q4-6H PRN (Reason: pain) Qty: 10 0RF No Action sumatriptan succinate 50 mg tablet See Rx Instructions PO .COMPLEX MDD 100mg Qty: 10 5RF Rx Instructions: take 1 tab at onset of headache; if no relief may repeat 1 tab in 1hr alendronate 70 mg tablet 70 mg PO QWEEK Qty: 12 3RF levothyroxine 88 mcg tablet 88 mcg PO DAILY Qty: 90 3RF vitamin B complex [B Complex-Vitamin B12] Tablet 1 tab PO DAILY Osteoben for calcium 4 tab PO DAILY doxycycline hyclate 100 mg capsule 100 mg PO DAILY neomycin-polymyxin B-dexameth 3.5mg/mL-10,000 unit/mL-0.1 % drops,suspension 1 drp EYE-BOTH QID Patient Comments: Instill 1 drop in both eyes four times daily cyclobenzaprine 5 mg tablet 5 mg PO BID PRN (Reason: muscle spasm) Qty: 60 1RF Referrals: Jad Bender MD [Primary Care Provider] - Mena Gould MD [Physician] - Stand Alone Forms: Patient Portal/API
[2022-09-10 19:38] VITALS: BP 142/63; PULSE 67; O2SAT 96
== END 2022-09-10 19:38 | disposition home or self-care (01) ==
PROVIDERS: Emergency Provider Emergency Medicine; PCP Student in an Organized Health Care Education/Training Program
DX: S82.001A Unspecified fracture of right patella, initial encounter for closed fracture (principal); S89.92XA Unspecified injury of left lower leg, initial encounter; W01.0XXA Fall on same level from slipping, tripping and stumbling without subsequent striking against object, initial encounter
CPT/HCPCS: 73562; 99283

== ENCOUNTER → 2022-12-31 09:45 | Outpatient (CLI) | payer MEDICARE, OTHER, SELFPAY ==
--- NOTE | 2022-12-31 09:48 | DI.RAD.S_ITS ---
Bone Density Report Name: LILIA HARO Age: 82 Sex: Female Ethnicity: White Date of : 1940 Indication: postmenopausal osteoporosis; monitoring treatment; Referring Provider: SPARKLE PEREZ Study: Bone densitometry was performed. Exam Date: December 31, 2022 Accession number: [id number] Bone Density: Region BMD T-score Z-score Classification AP Spine(L1-L4) 0.930 -1.1 1.6 Osteopenia Femoral Neck (Left) 0.661 -1.7 0.6 Osteopenia Total Hip (Left) 0.696 -2.0 0.0 Osteopenia Femoral Neck (Right) 0.557 -2.6 -0.3 Osteoporosis Total Hip (Right) 0.624 -2.6 -0.5 Osteoporosis Total Hip Mean 0.660 -2.3 -0.3 Osteopenia World Health Organization criteria for BMD impression classify patients as: Normal (T-score at or above -1.0), Osteopenia (T-score between -1.0 and -2.5), or Osteoporosis (T-score at or below -2.5). 10-year Fracture Risk: FRAX not reported because: Some T-score for Spine Total or Hip Total or Femoral Neck at or below -2.5 Treated for osteoporosis Previous Exams: -- Region Exam Age BMD T-score BMD Change BMD Change Date g/cm2 vs Baseline vs Previous -- AP Spine (L1-L4) 12/31/2022 82 0.930 -1.1 -0.006 (-0.6%) -0.006 (-0.6%) 12/24/2021 81 0.935 -1.0 Total Hip(Left) 12/31/2022 82 0.696 -2.0 0.020 (3.0%) 0.020 (3.0%) 12/24/2021 81 0.676 -2.2 Total Hip(Right) 12/31/2022 82 0.624 -2.6 -0.009 (-1.4%) -0.009 (-1.4%) 12/24/2021 81 0.633 -2.5 -- *Denotes significance at 95% confidence level, LSC for AP Spine = 0.022 g/cm2, LSC for Total Hip = 0.027 g/cm2 Impression: The patient has osteoporosis, based on the Right Total Hip T-score. No significant bone loss was observed. Discussion: PATIENT UNDER TREATMENT WITH NO SIGNIFICANT BMD LOSS SINCE LAST EXAM. In an untreated patient, BMD typically declines with age. A lack of decline or gain is usually a sign that treatment is efficacious and fracture risk is reduced. It is important to ask patients whether they are taking their medications and to encourage continued and appropriate compliance with their osteoporosis therapies to reduce fracture risk. It is also important to review their risk factors and encourage appropriate calcium and vitamin D intakes, exercise, fall prevention and other lifestyle measures. Follow-Up: Consider a repeat BMD and Vertebral Fracture Assessment (VFA) exam in 2 years or sooner if medically necessary, to reassess this patient's status. Reported by: JEFERSON AMBROSE M.D. on 12/31/2022 10:23:00 AM.
== END ==
PROVIDERS: PCP Student in an Organized Health Care Education/Training Program; Referring Provider Pediatrics; Visit Provider Pediatrics
DX: Z78.0 Asymptomatic menopausal state (principal); M85.89 Other specified disorders of bone density and structure, multiple sites; N95.8 Other specified menopausal and perimenopausal disorders; M81.0 Age-related osteoporosis without current pathological fracture
CPT/HCPCS: 77080

== ENCOUNTER → 2023-01-08 13:47 | Outpatient (CLI) | payer MEDICARE, SELFPAY | PROVIDERS: PCP Student in an Organized Health Care Education/Training Program; Visit Provider Student in an Organized Health Care Education/Training Program | DX: R30.0 Dysuria (principal) | CPT/HCPCS: 87077; 87086; 87186 ==

== ENCOUNTER → 2023-01-29 16:36 | Outpatient (CLI) | payer MEDICARE, OTHER, SELFPAY ==
[2023-01-29 17:46] LABS: Hemoglobin A1C% w Est Avg Glu 5.8 % (4.0-6.0)
[2023-01-29 18:02] LABS: BUN Creatinine Ratio 25.4 (6-22); Blood Urea Nitrogen 18 mg/dL (7-17); Calcium 9.7 mg/dL (8.4-10.2); Carbon Dioxide 28 mmol/L (22-32); Chloride 103 mmol/L (98-107); Estimated Glomerular Filt Rate > 60 mL/min (>60); Glucose 132 mg/dL (80-110); HEMOLYSIS 18 (0-50); Potassium 3.7 mmol/L (3.4-5.1); Sodium 137 mmol/L (137-145)
[2023-01-29 18:31] LABS: TSH w/ Reflex to FT4 7.06 uIU/mL (0.47-4.68)
[2023-01-29 18:46] LABS: Vitamin B12 920 pg/mL (239-931)
[2023-01-29 19:07] LABS: Free T4, Direct Thyroxine 1.32 ng/dL (0.78-2.19)
[2023-02-03 15:47] LABS: Albumin 3.8 g/dL (2.9-4.4); Alpha-1-Globulin 0.2 g/dL (0.0-0.4); Alpha-2-Globulin 0.6 g/dL (0.4-1.0); Gamma Globulin 0.7 g/dL (0.4-1.8); Globulin Total 2.4 g/dL (2.2-3.9); Protein, Total 6.2 g/dL (6.0-8.5)
== END ==
PROVIDERS: PCP Student in an Organized Health Care Education/Training Program; Referring Provider Internal Medicine; Visit Provider Internal Medicine
DX: M81.0 Age-related osteoporosis without current pathological fracture; R73.01 Impaired fasting glucose; I87.2 Venous insufficiency (chronic) (peripheral); M15.9 Polyosteoarthritis, unspecified; G62.9 Polyneuropathy, unspecified; E53.8 Deficiency of other specified B group vitamins; R77.9 Abnormality of plasma protein, unspecified; E03.9 Hypothyroidism, unspecified
CPT/HCPCS: 36415; 80048; 82607; 83036; 84155; 84165; 84439; 84443

== ENCOUNTER → 2023-01-30 08:54 | Outpatient (CLI) | payer MEDICARE, OTHER, SELFPAY ==
[2023-01-30 11:26] LABS: Cholesterol 214 mg/dL (140-199); HDL Cholesterol 90 mg/dL (40-60); LDL Cholesterol Calculated 100 mg/dL (<100); Triglycerides 121 mg/dL (35-150)
== END ==
PROVIDERS: PCP Internal Medicine; Referring Provider Internal Medicine; Visit Provider Internal Medicine
DX: G62.9 Polyneuropathy, unspecified (principal); E78.2 Mixed hyperlipidemia
CPT/HCPCS: 80061

== ENCOUNTER → 2023-04-21 16:17 | Outpatient (CLI) | payer MEDICARE, OTHER, SELFPAY ==
--- NOTE | 2023-04-21 | DI.MG.S_ITS ---
BILATERAL DIGITAL SCREENING MAMMOGRAM 3D/2D WITH CAD: 04/21/2023 CLINICAL: Routine screening. Family history of breast cancer. Comparison is made to exams dated: 03/18/2022 mammogram, 03/15/2021 mammogram, and 03/13/2020 mammogram - [facility]. There are scattered areas of fibroglandular density in both breasts (category b / 25%-50% glandular tissue). Current study was also evaluated with a Computer Aided Detection (CAD) system. There is a biopsy clip in the right breast. No significant masses, calcifications, or other findings are seen in either breast. There has been no significant interval change. IMPRESSION: BENIGN There is no mammographic evidence of malignancy. A 1 year screening mammogram is recommended. Based on the Tyrer Cuzick model (a risk assessment model) the patient's lifetime risk is 3.5% and her 10 year risk is 0.0%. According to the ACR, ACS, and NCCN guidelines, an annual breast MRI exam along with mammogram is recommended if the patient's lifetime risk is 20% or greater. This exam was interpreted at Station ID: [id number]. NOTE: For mammograms, a report in lay terms will be sent to the patient. Approximately 15% of breast malignancies will not be visualized mammographically. In the management of a palpable breast mass, a negative mammogram must not discourage biopsy of a clinically suspicious lesion. Electronically Signed By: Chelsea Enamorado M.D., PH.D moreno/david:04/22/2023 10:16:40 letter sent: Normal Exam ACR BI-RADS Category 2: Benign Finding(s) 3342F
== END ==
PROVIDERS: PCP Internal Medicine; Referring Provider Internal Medicine; Visit Provider Internal Medicine
DX: Z12.31 Encounter for screening mammogram for malignant neoplasm of breast (principal); R92.323 Mammographic fibroglandular density, bilateral breasts; Z80.3 Family history of malignant neoplasm of breast
CPT/HCPCS: 77063; 77067

== ENCOUNTER → 2023-05-15 16:06 | Outpatient (CLI) | payer MEDICARE, OTHER, SELFPAY ==
[2023-05-15 19:15] LABS: TSH w/ Reflex to FT4 0.45 uIU/mL (0.47-4.68)
[2023-05-15 20:00] LABS: Free T4, Direct Thyroxine 1.77 ng/dL (0.78-2.19)
== END ==
PROVIDERS: PCP Internal Medicine; Referring Provider Internal Medicine; Visit Provider Internal Medicine
DX: E03.9 Hypothyroidism, unspecified (principal)
CPT/HCPCS: 36415; 84439; 84443

== ENCOUNTER → 2023-08-13 15:50 | Outpatient (CLI) | payer MEDICARE, OTHER, SELFPAY ==
[2023-08-13 18:08] LABS: TSH w/ Reflex to FT4 0.44 uIU/mL (0.47-4.68)
[2023-08-13 18:34] LABS: Free T4, Direct Thyroxine 1.61 ng/dL (0.78-2.19)
== END ==
PROVIDERS: PCP Internal Medicine; Referring Provider Internal Medicine; Visit Provider Internal Medicine
DX: E03.9 Hypothyroidism, unspecified (principal)
CPT/HCPCS: 36415; 84439; 84443

== ENCOUNTER → 2023-10-29 11:19 | Outpatient (CLI) | payer MEDICARE, OTHER, SELFPAY ==
[2023-10-29 11:54] LABS: Hematocrit 42.7 % (36-46); Hemoglobin 14.6 g/dL (12.0-16.0); Mean Corpuscular HGB Conc 34.1 % (30-36); Mean Corpuscular Hemoglobin 31.2 PG (26-34); Mean Corpuscular Volume 91.4 fL (80-100); Platelet Count 255 X10^3/uL (150-400); Red Blood Cell Count 4.67 X10^6/uL (4.0-5.2); Red Cell Distribution Width 13.2 % (11.6-14.8); White Blood Cell Count 5.3 X10^3/uL (4.5-11.0)
[2023-10-29 12:07] LABS: Alanine Aminotransferase 18 IU/L (<35); Albumin 4.6 g/dL (3.5-5.0); Alkaline Phosphatase 53 U/L (38-126); Aspartate Aminotransferase 35 IU/L (14-36); BUN Creatinine Ratio 14.9 (6-22); Bilirubin Total 1.4 mg/dL (0.2-1.3); Blood Urea Nitrogen 11 mg/dL (7-17); Calcium 9.5 mg/dL (8.4-10.2); Carbon Dioxide 29 mmol/L (22-32); Chloride 106 mmol/L (98-107); Estimated Glomerular Filt Rate > 60 mL/min (>60); Globulin 2.3 g/dL (1.7-4.1); Glucose 92 mg/dL (80-110); HEMOLYSIS < 15 (0-50); Potassium 4.6 mmol/L (3.4-5.1); Sodium 140 mmol/L (137-145); Total Protein 6.9 g/dL (6.3-8.2)
[2023-10-29 12:35] LABS: TSH w/ Reflex to FT4 0.38 uIU/mL (0.47-4.68)
[2023-10-29 13:03] LABS: Free T4, Direct Thyroxine 1.42 ng/dL (0.78-2.19)
== END ==
LOC: LAB 11:20
PROVIDERS: PCP Internal Medicine; Referring Provider Internal Medicine; Visit Provider Internal Medicine
DX: E03.9 Hypothyroidism, unspecified (principal); M81.0 Age-related osteoporosis without current pathological fracture
CPT/HCPCS: 36415; 80053; 84439; 84443; 85027

== ENCOUNTER → 2024-01-05 09:40 | Outpatient (CLI) | payer MEDICARE, OTHER, SELFPAY ==
--- NOTE | 2024-01-05 09:41 | DI.RAD.S_ITS ---
PROCEDURE: XR DEXA AXIAL SKELETON INDICATIONS: osteoporosis COMPARISON: [facility], CR, XR DEXA AXIAL SKELETON, 12/31/2022, 9:58. FINDINGS: Lumbar Spine: L2-L4. Bone mineral density 1.027 g/cm2, T score -0.5. Left Hip: Bone mineral density 0.725 g/cm2, T score -1.8. Left Femoral Neck: Bone mineral density 0.656 g/cm2, T score -1.7. Right Hip: Bone mineral density 0.651 g/cm2, T score -2.4. Right Femoral Neck: Bone mineral density 0.564 g/cm2, T score -2.6. Fracture Risk Calculation (when applicable): 10-year fracture risk of a major osteoporotic fracture 17 percent and of a hip fracture 6 percent. (T score greater or equal to -1.0 to: NORMAL) (T score from -1.1 to -2.4: OSTEOPENIA) (T score less than or equal to -2.5: OSTEOPOROSIS) IMPRESSION: Osteoporosis. Follow-up guidelines as follows: Osteoporosis: Consider a repeat DEXA and Vertebral Fracture Assessment (VFA) exam in 2 years or sooner if medically necessary, to reassess this patient's status. Osteopenia: Consider a repeat DEXA in 2-3 years to reassess this patient's status, or if there is a new clinical indication. Normal: Consider a repeat DEXA in 5 years or sooner, or if there is a new clinical indication. All treatment decisions require clinical judgment and consideration of individual patient factors, including patient preferences, comorbidities, previous drug use, risk factors not captured in the FRAX model (e.g., frailty, falls, vitamin D deficiency, increased bone turnover, interval significant decline in bone density ) and possible under- or over-estimation of fracture risk by FRAX. In addition, the NOF Guide recommends that FDA-approved medical therapies be considered in postmenopausal women and men age >= 50 years with a: * Hip or vertebral (clinical or morphometric) fracture * T-score of <=-2.5 at the spine or hip * Ten-year fracture probability by FRAX of >= 3% for hip fracture or >=20% for major osteoporotic fracture. People with diagnosed cases of osteoporosis or at high risk for fracture should have regular bone mineral density tests. For patients eligible for Medicare, routine testing is allowed once every 2 years. The testing frequency can be increased to one year for patients who have rapidly progressing disease, those who are receiving or discontinuing medical therapy to restore bone mass, or have additional risk factors. Dictated by: Federico Coles M.D. on 01/05/2024 at 12:17 Approved by: Federico Coles M.D. on 01/05/2024 at 12:21
== END ==
LOC: RAD 09:40
PROVIDERS: PCP Internal Medicine; Referring Provider Internal Medicine; Visit Provider Internal Medicine
DX: M81.0 Age-related osteoporosis without current pathological fracture (principal)
CPT/HCPCS: 77080

== ENCOUNTER → 2024-01-24 14:15 | Outpatient (CLI) | payer MEDICARE, OTHER, SELFPAY | PROVIDERS: PCP Internal Medicine; Referring Provider Nurse Practitioner Family; Visit Provider Nurse Practitioner Family | DX: R30.0 Dysuria (principal); R10.9 Unspecified abdominal pain | CPT/HCPCS: 87086 ==

== ENCOUNTER 2024-01-27 07:23 | Emergency (ER) | payer MEDICARE, OTHER, SELFPAY ==
[2024-01-27] VITALS (11 sets, daily range): BP systolic 113–163; BP diastolic 53–68; PULSE 56–76; RESP 18; TEMP 36.6; O2SAT 96–100; BMI 20.8
--- NOTE | 2024-01-27 08:33 | EKG_ITS ---
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
[2024-01-27 08:36] LABS: Add Manual Diff / Slide Review NO; Basophils Absolute Auto 100 /uL (0-100); Basophils Percent Auto 1.4 % (0-2); Eosinophils Absolute Auto 200 /uL (0-450); Eosinophils Percent Auto 5.1 % (2-4); Hematocrit 45.6 % (36-46); Hemoglobin 15.1 g/dL (12.0-16.0); Lymphocytes Absolute Auto 1100 /uL (1100-4500); Lymphocytes Percent Auto 23.6 % (25-40); Mean Corpuscular HGB Conc 33.1 % (30-36); Mean Corpuscular Hemoglobin 29.8 PG (26-34); Mean Corpuscular Volume 90.1 fL (80-100); Monocytes Absolute Auto 400 /uL (0-900); Monocytes Percent Auto 9.7 % (3-14); Neutrophils Absolute Auto 2700 /uL (1500-7000); Neutrophils Percent Auto 60.2 % (50-75); Platelet Count 258 X10^3/uL (150-400); Red Blood Cell Count 5.06 X10^6/uL (4.0-5.2); Red Cell Distribution Width 13.3 % (11.6-14.8); White Blood Cell Count 4.5 X10^3/uL (4.5-11.0)
[2024-01-27 08:40] LABS: Alanine Aminotransferase 20 IU/L (<35); Albumin 4.6 g/dL (3.5-5.0); Albumin Globulin Ratio 1.8 (1.0-2.8); Alkaline Phosphatase 49 U/L (38-126); Aspartate Aminotransferase 40 IU/L (14-36); BUN Creatinine Ratio 16.2 (6-22); Bilirubin Total 1.4 mg/dL (0.2-1.3); Blood Urea Nitrogen 12 mg/dL (7-17); Calcium 9.6 mg/dL (8.4-10.2); Carbon Dioxide 28 mmol/L (22-32); Chloride 103 mmol/L (98-107); Estimated Glomerular Filt Rate > 60 mL/min (>60); Globulin 2.6 g/dL (1.7-4.1); Glucose 87 mg/dL (80-110); Lipase 120 U/L (23-300); Potassium 4.4 mmol/L (3.4-5.1); Sodium 138 mmol/L (137-145); Total Protein 7.2 g/dL (6.3-8.2)
[2024-01-27 08:41] LABS: HEMOLYSIS 63 (0-50)
--- NOTE | 2024-01-27 08:55 | ED_ITS ---
HPI - Abdominal Pain General Chief Complaint: Abdominal Pain Stated Complaint: lower abd pain Time Seen by Provider: 01/27/24 08:46 Source: patient, RN notes reviewed and old records reviewed Mode of arrival: Ambulatory Limitations: no limitations History of Present Illness HPI narrative: This is 83-year-old female history of hypothyroidism, neuropathy who presents with complaint of suprapubic pain for about a month and a half. She states she drives as as mild but does bother her. She states it is sort of intermittent seems to be little bit worse in the mornings but can come and go. Nothing in particular seems to make it significantly worse although sometimes when she urinates she notices it. No fevers or chills, no nausea or vomiting, no chest pain or shortness of breath states normal regular bowel movements. No bright red blood or melanotic stools. Denies dysuria urgency or frequency does note sometimes it is little bit hard to start her urination she has to think about making sure she empties her bladder. Denies any back or flank pain. No vaginal discharge or bleeding. No swelling or skin changes. Patient states she is on levothyroxine, nortriptyline and pregabalin is her daily medications. Had a history of complete hysterectomy with appendectomy reviewed in the . No known drug allergies. No tobacco, alcohol or recreational drugs. Dr. Reyes is her primary care physician. Related Data Home Medications Medication Instructions Recorded Confirmed Osteoben for calcium 4 tab PO DAILY 10/23/18 01/24/24 vitamin B complex (B 1 tab PO DAILY 04/24/21 01/24/24 Complex-Vitamin B12 tablet) alpha lipoic acid 100 mg capsule 100 mg PO BID 01/29/23 01/24/24 omega-3 fatty acids 1,000 mg 2,000 mg PO DAILY 01/29/23 01/24/24 capsule Previous Rx's Medication Instructions Recorded alendronate 70 mg tablet 70 mg PO QWEEK #12 tabs 03/06/23 levothyroxine 88 mcg capsule 88 mcg PO DAILY #90 caps 10/29/23 pregabalin 50 mg capsule 50 mg PO TID #90 caps 10/29/23 sumatriptan succinate 50 mg tablet See Rx Instructions PO .COMPLEX 12/02/23 #10 tabs nortriptyline 10 mg capsule 10 mg PO BEDTIME #30 caps 01/19/24 Allergies Allergy/AdvReac Type Severity Reaction Status Date / Time No Known Drug Allergies Allergy Verified 01/24/24 14:07 Review of Systems Review of Systems ROS Unobtainable: All systems reviewed & are unremarkable except as noted in HPI and below Patient History Medical History Age-related osteoporosis without current pathological fracture Acquired hypothyroidism BPPV (benign paroxysmal positional vertigo) Osteoarthritis involving multiple joints on both sides of body Migraine headache Fracture of scaphoid bone of left wrist Surgical History History of appendectomy History of hysterectomy History of total left knee replacement Family History Sister Optic atrophy associated with retinal dystrophy Social History details: 2021, 2 grown children ([place]), 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 RESPIRATORY: Breath sounds equal bilaterally, no wheezes rales or rhonchi. ABDOMEN: Soft, nontender. Normoactive bowel sounds all 4 quadrants. No guarding or rebound, rigidity, patient has some mild fullness suprapubically but no other masses or hepatosplenomegaly. She is nontender on exam. : No CVA tenderness EXTREMITIES: Normal range of motion, no clubbing or edema. Neurovascularly intact NEUROLOGICAL: Cranial nerves II through XII grossly intact. Moving all extremities SKIN: Warm, dry, no petechiae, no rashes or lesions. Initial Vital Signs Initial Vital Signs: Vital Signs Pulse Oximetry 100 01/27/24 07:38 Course Orders Ordered: Discontinued Medications Ondansetron HCl (Ondansetron 4 Mg/2 Ml Inj) 4 mg IV NOW PRN PRN Reason: Nausea And Vomiting Ondansetron HCl (Ondansetron 4 Mg Odt) 4 mg PO NOW PRN PRN Reason: Nausea And Vomiting Vital Signs Vital signs: Vital Signs - 8 hr 01/27/24 07:42 Temperature 97.8 F Pulse Rate 76 Respiratory Rate 18 Blood Pressure 136/67 Pulse Oximetry 99 Oxygen Delivery Method Room Air MDM - Abdominal Pain Lab Data 01/27/24 07:47 01/27/24 07:47 Labs: Lab Results 01/27/24 Range/Units 07:47 WBC 4.5 (4.5-11.0) X10^3/uL RBC 5.06 (4.0-5.2) X10^6/uL Hgb 15.1 (12.0-16.0) g/dL Hct 45.6 (36-46) % MCV 90.1 (80-100) fL MCH 29.8 (26-34) PG MCHC 33.1 (30-36) % RDW 13.3 (11.6-14.8) % Plt Count 258 (150-400) X10^3/uL Neut % (Auto) 60.2 (50-75) % Lymph % (Auto) 23.6 L (25-40) % [place] % (Auto) 9.7 (3-14) % Eos % (Auto) 5.1 H (2-4) % Baso % (Auto) 1.4 (0-2) % Neut # (Auto) 2700 (7335-5804) /uL Lymph # (Auto) 1100 (8962-6209) /uL [place] # (Auto) 400 (0-900) /uL Eos # (Auto) 200 (0-450) /uL Baso # (Auto) 100 (0-100) /uL Sodium 138 (137-145) mmol/L Potassium 4.4 (3.4-5.1) mmol/L Chloride 103 (98-107) mmol/L Carbon Dioxide 28 (22-32) mmol/L BUN 12 (7-17) mg/dL Creatinine 0.74 (0.52-1.04) mg/dL Estimated GFR > 60 (>60) mL/min BUN/Creatinine Ratio 16.2 (6-22) Glucose 87 (80-110) mg/dL Calcium 9.6 (8.4-10.2) mg/dL Total Bilirubin 1.4 H (0.2-1.3) mg/dL AST 40 H (14-36) IU/L ALT 20 (<35) IU/L Alkaline Phosphatase 49 (38-126) U/L Total Protein 7.2 (6.3-8.2) g/dL Albumin 4.6 (3.5-5.0) g/dL Globulin 2.6 (1.7-4.1) g/dL Albumin/Globulin Ratio 1.8 (1.0-2.8) Lipase 120 (23-300) U/L Point of care testing: Urine Dip Bedside Urine Glucose Negative Bedside Urine Bilirubin - Negative Bedside Urine Ketone - Negative Urine Specific Rand 1.000 Bedside Urine Occult Blood - Negative Bedside Urine pH 6.5 Bedside Urine Protein - Negative Bedside Urine Urobilinogen - Negative Bedside Urine Nitrite - Negative Bedside Urine Leukocytes - Negative Esterase Imaging Data CT scan - abdomen/pelvis: Radiologist's Impression: Close Abdomen/Pelvis CT (Signed) Maged Gregg - 01/27/[address] [address] [address] Scan Report Signed Patient: Britney Benton MR#: [id number] : 1940 Acct:[id number] Age/Sex: 83 / F Date of Service: 01/27/24 Loc: ED Accession Number: [id number] Procedure: CT abdomen pelvis w con Ordering Provider: Marianna Ferreira D.O. PROCEDURE: CT ABDOMEN PELVIS W CON INDICATIONS: suprapubic pain x 1.5 months, intermittent not resolving TECHNIQUE: After the administration of intravenous contrast, axial sections acquired from the lung bases to the pubic symphysis. Coronal and sagittal reformats were performed. For radiation dose reduction, the following was used: automated exposure control, adjustment of mA and/or kV according to patient size. COMPARISON: None. FINDINGS: Image quality: Diagnostic. Lower Chest: No significant findings beyond mild linear scarring left base. ABDOMEN: Liver: No solid mass. Gallbladder: No radiopaque gallstones or wall thickening. Biliary ducts: No biliary dilation. Pancreas: No ductal dilation. Spleen: Size is within normal limits. Adrenal Glands: No adrenal nodules. Kidneys and Ureters: No hydronephrosis. No solid mass. No complex renal cystic lesion which requires follow up. There is a nonobstructive 2 x 3 mm calcification within the lower 3rd collecting system of right kidney and a 1 x 2 mm additional lower 3rd collecting system nonobstructive calculus. Stomach and Bowel: Normal colonic caliber, without significant wall thickening. Generalized colonic obstipation bilaterally. Peritoneum: No abnormal intraperitoneal fluid. No free air. Ventral Wall: No significant ventral hernia. Abdominal Nodes: No retroperitoneal or mesenteric adenopathy by size criteria. Vessels: Aorta and inferior vena cava are normal in size. PELVIS: Pelvic Organs: Unremarkable. Apparent prior hysterectomy. Bladder: No bladder wall thickening, accounting for underdistention. Pelvic Nodes: No enlarged lymph nodes. Miscellaneous: No inguinal hernias are seen however the stool-filled bowel does mildly protrude into the upper origin of the right inguinal canal but the peritoneal membrane appears intact. Generalized colonic obstipation bilaterally. Bones: No aggressive osseous abnormality. IMPRESSION: Generalized colonic obstipation bilaterally. Two small nonobstructive calculi are seen within the lower 3rd collecting system of the right kidney. A portion of the stool-filled colon protrudes slightly into the upper aspect of the peritoneal recess of the origin of the right inguinal canal but on sagittal reconstruction imaging the peritoneal membrane appears intact in that area and therefore a true hernia does not appear present. Dictated by: Maged Gregg M.D. on 01/27/2024 at 10:09 Approved by: Maged Gregg M.D. on 01/27/2024 at 10:16 ECG Data Attestation: I personally reviewed and interpreted this ECG as follows: Prior ECG tracings: available for review Interpretation: Sinus rhythm rate of 60 [place] 186 QRS is 78 QTC of 4 0, no acute ST elevation depression noted. Nonspecific change in comparison to prior from 11/09/2020. MDM Narrative Medical decision making narrative: 83-year-old female with persistent suprapubic discomfort for the past month and a half, lab workup does not show any clear source, point of care urine is negative for infection, patient feels slightly full in the suprapubic area she is nontender otherwise but with persistence of symptoms felt appropriate to obtain CT abdomen pelvis to rule out diverticulitis, mass or other changes. Labs show white count of 4.5 hemoglobin of 15 platelets of 258. Sodium is 138 potassium 4.4 chloride 103 CO2 of 28 BUN 12 creatinine of 0.74 glucose of 87, total bilirubin is 1.4 AST is 40, ALT is 20 alk-phos is 49, lipase is 120. Point of care urine is negative EKG shows sinus rhythm, no acute ST change, nonspecific change in comparison EKG from 2020. CT abdomen pelvis shows generalized colonic obstipation bilaterally 2 small nonobstructing calculi seen lower 3rd collecting system of the right kidney. No inguinal hernias however a stool-filled bowel does mildly protrude in upper urgent of the right inguinal canal but the peritoneal membrane appears intact. Findings with patient. She stools are often hard and pebbly. Discussed changing diet, hydrating regularly and can use stool softeners or fiber in addition to see if this improves her symptoms. Did review her CT findings as labs and. Discussed return precautions questions answered. Discharge Plan Departure Patient Disposition: Home Clinical Impression: Abdominal pain Activity Restrictions/Additional Instructions: Your today does show stool throughout bilaterally this could be causing some of your discomfort. I would recommend taking a stool softener daily and plenty of fluids or prune juice or similar to see if this helps improve her symptoms. You can take Colace 1 tablet twice daily until stools are soft and regular. Please return for new or worsening abdominal back or flank pain, fevers, difficulty with urination, black or bloody stools, vomiting or other new or concerning changes. Prescriptions: No Action alendronate 70 mg tablet 70 mg PO QWEEK Qty: 12 3RF levothyroxine 88 mcg capsule 88 mcg PO DAILY Qty: 90 1RF sumatriptan succinate 50 mg tablet See Rx Instructions PO .COMPLEX MDD 100mg Qty: 10 3RF Rx Instructions: take 1 tab at onset of headache; if no relief may repeat 1 tab in 1hr nortriptyline 10 mg capsule 10 mg PO BEDTIME Qty: 30 5RF vitamin B complex [B Complex-Vitamin B12] Tablet 1 tab PO DAILY alpha lipoic acid 100 mg capsule 100 mg PO BID omega-3 fatty acids 1,000 mg capsule 2,000 mg PO DAILY pregabalin 50 mg capsule 50 mg PO TID Qty: 90 5RF Osteoben for calcium 4 tab PO DAILY Referrals: Ranulfo Reyes MD [Primary Care Provider] - Stand Alone Forms: Patient Portal/API/Survey
--- NOTE | 2024-01-27 09:07 | DI.CT.S_ITS ---
PROCEDURE: CT ABDOMEN PELVIS W CON INDICATIONS: suprapubic pain x 1.5 months, intermittent not resolving TECHNIQUE: After the administration of intravenous contrast, axial sections acquired from the lung bases to the pubic symphysis. Coronal and sagittal reformats were performed. For radiation dose reduction, the following was used: automated exposure control, adjustment of mA and/or kV according to patient size. COMPARISON: None. FINDINGS: Image quality: Diagnostic. Lower Chest: No significant findings beyond mild linear scarring left base. ABDOMEN: Liver: No solid mass. Gallbladder: No radiopaque gallstones or wall thickening. Biliary ducts: No biliary dilation. Pancreas: No ductal dilation. Spleen: Size is within normal limits. Adrenal Glands: No adrenal nodules. Kidneys and Ureters: No hydronephrosis. No solid mass. No complex renal cystic lesion which requires follow up. There is a nonobstructive 2 x 3 mm calcification within the lower 3rd collecting system of right kidney and a 1 x 2 mm additional lower 3rd collecting system nonobstructive calculus. Stomach and Bowel: Normal colonic caliber, without significant wall thickening. Generalized colonic obstipation bilaterally. Peritoneum: No abnormal intraperitoneal fluid. No free air. Ventral Wall: No significant ventral hernia. Abdominal Nodes: No retroperitoneal or mesenteric adenopathy by size criteria. Vessels: Aorta and inferior vena cava are normal in size. PELVIS: Pelvic Organs: Unremarkable. Apparent prior hysterectomy. Bladder: No bladder wall thickening, accounting for underdistention. Pelvic Nodes: No enlarged lymph nodes. Miscellaneous: No inguinal hernias are seen however the stool-filled bowel does mildly protrude into the upper origin of the right inguinal canal but the peritoneal membrane appears intact. Generalized colonic obstipation bilaterally. Bones: No aggressive osseous abnormality. IMPRESSION: Generalized colonic obstipation bilaterally. Two small nonobstructive calculi are seen within the lower 3rd collecting system of the right kidney. A portion of the stool-filled colon protrudes slightly into the upper aspect of the peritoneal recess of the origin of the right inguinal canal but on sagittal reconstruction imaging the peritoneal membrane appears intact in that area and therefore a true hernia does not appear present. Dictated by: Maged Gregg M.D. on 01/27/2024 at 10:09 Approved by: Maged Gregg M.D. on 01/27/2024 at 10:16
== END 2024-01-27 10:42 | disposition home or self-care (01) ==
PROVIDERS: Emergency Provider Emergency Medicine; PCP Internal Medicine
DX: R10.30 Lower abdominal pain, unspecified (principal)
CPT/HCPCS: 36415; 74177; 80053; 81003; 83690; 85025; 93005; 99283; 99284; Q9967

== ENCOUNTER → 2024-02-04 12:20 | Outpatient (CLI) | payer MEDICARE, OTHER, SELFPAY ==
[2024-02-04 13:36] LABS: Cholesterol 234 mg/dL (140-199); HDL Cholesterol 93 mg/dL (40-60); LDL Cholesterol Calculated 111 mg/dL (<100); Triglycerides 149 mg/dL (35-150)
[2024-02-04 14:06] LABS: TSH w/ Reflex to FT4 1.98 uIU/mL (0.47-4.68)
== END ==
PROVIDERS: PCP Internal Medicine; Referring Provider Internal Medicine; Visit Provider Internal Medicine
DX: E03.9 Hypothyroidism, unspecified (principal); E78.2 Mixed hyperlipidemia; G62.9 Polyneuropathy, unspecified
CPT/HCPCS: 36415; 80061; 84443

== ENCOUNTER → 2024-04-26 09:10 | Outpatient (CLI) | payer MEDICARE, OTHER, SELFPAY ==
--- NOTE | 2024-04-26 09:12 | DI.MG.S_ITS ---
BILATERAL DIGITAL SCREENING MAMMOGRAM 3D/2D WITH CAD: 04/26/2024 Comparison is made to exams dated: 04/21/2023 mammogram, 03/18/2022 mammogram, 03/15/2021 mammogram, and 03/13/2020 mammogram - [facility]. There are scattered areas of fibroglandular density (category b / 25%-50% glandular tissue). Current study was also evaluated with a Computer Aided Detection (CAD) system. There is a biopsy clip in the right breast. No significant masses, calcifications, or other findings are seen in either breast. There has been no significant interval change. IMPRESSION: NEGATIVE There is no mammographic evidence of malignancy. A 1 year screening mammogram is recommended. Based on the Tyrer Cuzick model (a risk assessment model) the patient's lifetime risk is 1.6% and her 10 year risk is 0.0%. According to the ACR, ACS, and NCCN guidelines, an annual breast MRI exam along with mammogram is recommended if the patient's lifetime risk is 20% or greater. This exam was interpreted at Station ID: [id number]. NOTE: For mammograms, a report in lay terms will be sent to the patient. Approximately 15% of breast malignancies will not be visualized mammographically. In the management of a palpable breast mass, a negative mammogram must not discourage biopsy of a clinically suspicious lesion. Electronically Signed By: Chris cali/david:04/26/2024 16:32:39 letter sent: Normal Exam ACR BI-RADS Category 1: Negative
== END ==
PROVIDERS: PCP Internal Medicine; Referring Provider Internal Medicine; Visit Provider Internal Medicine
DX: Z12.31 Encounter for screening mammogram for malignant neoplasm of breast (principal)
CPT/HCPCS: 77063; 77067

== ENCOUNTER → 2024-05-19 17:01 | Outpatient (CLI) | payer MEDICARE, OTHER, SELFPAY ==
[2024-05-19 17:26] LABS: Hematocrit 41.5 % (36-46); Hemoglobin 13.9 g/dL (12.0-16.0); Mean Corpuscular HGB Conc 33.4 % (30-36); Mean Corpuscular Hemoglobin 30.1 PG (26-34); Mean Corpuscular Volume 90.2 fL (80-100); Platelet Count 306 X10^3/uL (150-400); Red Blood Cell Count 4.61 X10^6/uL (4.0-5.2); Red Cell Distribution Width 13.4 % (11.6-14.8); White Blood Cell Count 6.5 X10^3/uL (4.5-11.0)
[2024-05-19 17:46] LABS: Alanine Aminotransferase 16 IU/L (<35); Albumin 4.4 g/dL (3.5-5.0); Albumin Globulin Ratio 1.8 (1.0-2.8); Alkaline Phosphatase 84 U/L (38-126); Aspartate Aminotransferase 31 IU/L (14-36); BUN Creatinine Ratio 16.4 (6-22); Bilirubin Total 0.7 mg/dL (0.2-1.3); Blood Urea Nitrogen 11 mg/dL (7-17); C-Reactive Protein Quant 2.1 mg/dL (<1.0); Calcium 9.7 mg/dL (8.4-10.2); Carbon Dioxide 31 mmol/L (22-32); Chloride 101 mmol/L (98-107); Estimated Glomerular Filt Rate > 60 mL/min (>60); Globulin 2.4 g/dL (1.7-4.1); Glucose 100 mg/dL (80-110); HEMOLYSIS < 15 (0-50); Potassium 4.1 mmol/L (3.4-5.1); Rheumatoid Factor 9.2 IU/mL (<12.0); Sodium 138 mmol/L (137-145); Total Protein 6.8 g/dL (6.3-8.2)
[2024-05-19 17:47] LABS: Erythrocyte Sedimentation Rate 11 MM/HR (0-20)
[2024-05-22 10:40] LABS: CCP Antibodies IgG/IgA 2 units (0-19)
[2024-05-22 18:39] LABS: ANA Screen, IFA Negative (.)
== END ==
PROVIDERS: PCP Internal Medicine; Referring Provider Internal Medicine; Visit Provider Internal Medicine
DX: M35.3 Polymyalgia rheumatica (principal); M15.9 Polyosteoarthritis, unspecified
CPT/HCPCS: 36415; 80053; 85027; 85651; 86038; 86140; 86200; 86430

== ENCOUNTER → 2024-09-18 14:39 | Outpatient (CLI) | payer MEDICARE, OTHER, SELFPAY ==
--- NOTE | 2024-09-18 14:42 | DI.MRI.S_ITS ---
PROCEDURE: MR LUMBAR SPINE WO CON INDICATIONS: Lumbar stenosis TECHNIQUE: Noncontrast sagittal T1 spin echo and T2 fast echo, sagittal STIR, and T2 fast spin echo through the lumbar spine. In cases with scoliosis, additional coronal T2 fast spin echo may be performed. COMPARISON: [facility], MR, MR LUMBAR SPINE WO CON, 09/25/2017, 9:15. FINDINGS: Image quality: Excellent. Alignment and Curvature: Levocurvature. Mild retrolisthesis of L2 on L3. Grade 1 anterolisthesis of L4 on L5. Bone Marrow: Degenerative endplate changes. Marrow is of normal overall signal. No acute vertebral body compression fractures. Spinal Cord: Conus medullaris terminates at the L2 level. Visualized cord demonstrates normal signal and size. Paraspinous Soft Tissues: No paravertebral masses. T12-L1: Disc desiccation and mild disc bulge. Facet arthropathy. No significant central canal or neural foraminal stenosis. L1-L2: Disc desiccation and mild disc bulge. Facet arthropathy. No central canal stenosis. No neural foraminal stenosis. L2-L3: Disc desiccation is severe height loss. Diffuse disc bulge. Facet arthropathy. Mild central canal stenosis. Mild bilateral neural foraminal stenosis. Stable compared to prior. L3-L4: Disc desiccation and mild diffuse disc bulge. Facet arthropathy and thickening of ligamentum flavum. Epidural lipomatosis. Mild to moderate central canal stenosis is progressed. No significant neural foraminal stenosis. L4-L5: Disc desiccation and moderate height loss. Diffuse disc bulge. Facet arthropathy. Mild central canal stenosis. Mild bilateral neural foraminal stenosis, mildly progressed on the left. L5-S1: Disc desiccation and severe disc height loss. Minimal disc bulge. Facet arthropathy. No central canal stenosis. Severe left and mild right neural foraminal stenosis is stable. IMPRESSION: 1. Multilevel degenerative changes of the lumbar spine with mild progression compared to prior. 2. Mild to moderate central canal stenosis at L3-L4. 3. Severe left neural foraminal stenosis at L5-S1. Dictated by: Arsalan Oviedo M.D. on 09/20/2024 at 10:26 Approved by: Arsalan Oviedo M.D. on 09/20/2024 at 10:36
== END ==
LOC: MRI 14:41
PROVIDERS: PCP Internal Medicine; Referring Provider Physical Medicine & Rehabilitation; Visit Provider Physical Medicine & Rehabilitation
DX: M48.062 Spinal stenosis, lumbar region with neurogenic claudication (principal); M48.07 Spinal stenosis, lumbosacral region; M47.816 Spondylosis without myelopathy or radiculopathy, lumbar region; M47.817 Spondylosis without myelopathy or radiculopathy, lumbosacral region
CPT/HCPCS: 72148

== ENCOUNTER → 2025-02-07 15:06 | Outpatient (CLI) | payer MEDICARE, OTHER, SELFPAY ==
[2025-02-07 16:08] LABS: Hemoglobin A1C% w Est Avg Glu 5.6 % (4.0-6.0)
[2025-02-07 16:21] LABS: Blood Urea Nitrogen 15 mg/dL (7-17); Calcium 9.6 mg/dL (8.4-10.2); Carbon Dioxide 28 mmol/L (22-32); Chloride 103 mmol/L (98-107); Cholesterol 231 mg/dL (140-199); Estimated Glomerular Filt Rate > 60 mL/min (>60); Glucose 86 mg/dL (70-99); HDL Cholesterol 101 mg/dL (40-60); HEMOLYSIS < 15 (0-50); Potassium 4.4 mmol/L (3.4-5.1); Sodium 139 mmol/L (137-145); Triglycerides 81 mg/dL (35-150)
[2025-02-07 20:13] LABS: TSH w/ Reflex to FT4 1.25 uIU/mL (0.47-4.68)
== END ==
PROVIDERS: PCP Internal Medicine; Referring Provider Internal Medicine; Visit Provider Internal Medicine
DX: R73.01 Impaired fasting glucose (principal); E03.9 Hypothyroidism, unspecified; E78.2 Mixed hyperlipidemia
CPT/HCPCS: 36415; 80048; 80061; 83036; 84443; 84450